=== PATIENT | male | born 1960 | race Caucasian/White ===

== ENCOUNTER 2024-03-17 21:04 | Emergency (ER) | payer OTHER, SELFPAY ==
[2024-03-17] VITALS (8 sets, daily range): BP systolic 130–171; BP diastolic 81–95; PULSE 76–81; RESP 18; TEMP 36.9; O2SAT 98–100
--- NOTE | ~2024-03-17 | CT_ITS ---
History: Fall from a standing position PROCEDURE: CT orbits without contrast. COMPARISON: None TECHNIQUE: Axial imaging of the bilateral orbits were performed without IV contrast. Sagittal and coronal reform ations obtained. DLP: 191 mGy-cm FINDINGS: Hyperattenuating (likely) debris within the soft tissues overlying the orbital and frontal surface of the zygomatic bone. Hyperattenuating foci also identified within the anterior portion of the medial rectus muscle. Additional hyperattenuating foci within the soft tissues overlying the glabella. Minimally displaced right nasal bone fracture. Significant soft tissue swelling along the inferior orbital rim as well as the superior orbital rim. Impression: Soft tissue debris, as detailed above. Minimally displaced right nasal bone fracture. Significant soft tissue swelling along the superior and inferior orbital rim, as detected clinically Reviewed, dictated and finalized at location A. UCHER Impression: Soft tissue debris, as detailed above. Minimally displaced right nasal bone fracture. Significant soft tissue swelling along the superior and inferior orbital rim, a s detected clinically
--- NOTE | ~2024-03-17 | XR_ITS ---
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 Cortical irregularity along the inferior margin of the glenoid fossa along with irregularity of the i nferior margin of the right humeral head. Diffuse bony demineralization is present rendering the dete ction of a nondisplaced fracture limited. IMPRESSION: No acute displaced fracture or anterior dislocation. Cortical irregularity within the glenoid fossa as well as the inferior medial humeral head, for which a nondisplaced fracture is suspected. Reviewed, dictated and finalized at location A. BATH MIXER IMPRESSION: No acute displaced fracture or anterior dislocation. Cortical irregularity within the glenoid fossa as well as the inferior medial h umeral head, for which a nondisplaced fracture is suspected.
--- NOTE | ~2024-03-17 | CT_ITS ---
History: Fall from a standing position PROCEDURE: CT head without contrast. COMPARISON: None TECHNIQUE: Axial imaging of the head performed from the skull base to the vertex without IV contrast. Sagittal a nd coronal reformations obtained. DLP: 681 mGy-cm FINDINGS: The ventricles are normal in size, shape and position for patient of this age. Bilateral basal ganglia calcifications are present. There is no mass, mass effect or midline shift. There is no abnormal extra-axial fluid collection or intracranial hemorrhage. Visualized paranasal sinuses are clear. The mastoid air cells are well aerated. No acute displaced fractures within the overlying cranium. Scalp hematoma along the left supraorbital rim with soft tissue defect along the infraorbital rim. Impression: No acute intracranial hemorrhage or suspicious mass effect. Reviewed, dictated and finalized at location A. GER FASHION Impression: No acute intracranial hemorrhage or suspicious mass effect.
--- NOTE | ~2024-03-17 | XR_ITS ---
HISTORY: fall; rib pain w/ ecchymosis COMPARISON: None TECHNIQUE: 3 views of the right ribs were performed along with a frontal view of the chest FINDINGS: No acute displaced fracture is appreciated. The adjacent right lung is unremarkable. Bone mineralization is age-appropriate. The cardiomediastinal silhouette is unremarkable. The visualized lung bunn are clear. IMPRESSION: No acute displaced right rib fracture, as detailed above Reviewed, dictated and finalized at location A. S REPRESENTATIVE [employer]ATS
--- NOTE | 2024-03-17 21:09 | ED.FALL ---
HPI - Fall General Chief Complaint: Fall Stated Complaint: GLF; RT SHOULDER & RIB PAIN Time Seen by Provider: 03/17/24 21:08 Source: patient, family (Sister) and EMS Mode of arrival: EMS Limitations: no limitations History of Present Illness HPI Narrative: Patient presents from home where he lives with his sister after a ground level fall in the bathroom. He was seated on the edge of the tub and believes he lost his balance and fell. No loss of consciousness. He is not on anticoagulation. His last tetanus shot was approximately 8 years ago by report. He struck his face/head on a cabinet given that the door was broken off. 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 He states he has broken dentition but nothing acute. He is having a right shoulder pain and right rib pain but denies any shortness of breath. Prior to arrival he had already taken his prescribed medications which were gabapentin at 8:15 p.m., Tylenol 650 mg, and Flexeril 5 mg. Related Data Home Medications Medication Instructions Recorded Confirmed celecoxib 200 mg capsule (Celebrex) 200 mg PO DAILY 03/17/24 03/17/24 cyclobenzaprine 5 mg tablet 5 mg PO TID PRN Cervical Ripening 03/17/24 03/17/24 gabapentin 100 mg tablet 100 mg PO DAILY 03/17/24 03/17/24 Allergies Allergy/AdvReac Type Severity Reaction Status Date / Time codeine Allergy Severe CHEST Verified 03/17/24 21:15 PAIN/ NAUSEA PMFSH Past Medical History Medical History (Updated 03/18/24 @ 08:05 by Delores Hill MD) Cervical stenosis of spine Glaucoma Uses walker Social History Social History Living arrangements: with family Additional living arrangements comments: With sister Exam Narrative: GENERAL: well-nourished, and in no acute distress. HEAD: L periorbital swelling/edema as well as ecchymosis particularly along the inferior orbit. EYES: Non injected, non icteric. Extraocular movements intact horizontally and vertically without entrapment. PERRL 3mm bilaterally. ENT: Nares clear, no rhinorrhea or epistaxis. No septal hematoma. NECK: Supple. CHEST: Speaking in full sentences. No respiratory distress. Lungs clear to auscultation bilaterally. No palpable subcutaneous emphysema or bony crepitus. Patient denies TTP along R ribs although he does grimace. Ecchymosis along R chest. HEART: Regular rate and rhythm. . ABDOMEN: Soft, nondistended. SKIN: Warm, dry. Patient does have a 2 cm laceration at the skin underlying his left eyebrow. 1 cm of this is very superficial with the other 1 cm slightly deeper. Scattered abrasions along the right elbow. Skin tear left forearm. NEURO: No focal deficits. Alert and oriented x3. PSYCH: Normal mood and affect. Course Vital Signs Vital signs: Vital Signs Temperature 98.5 F 03/17/24 21:05 Pulse Rate 81 03/17/24 21:05 Respiratory Rate 18 03/17/24 21:05 Blood Pressure 171/81 H 03/17/24 21:05 Pulse Oximetry 100 03/17/24 21:05 Oxygen Delivery Room Air 03/17/24 21:05 Temperature 98.2 F 03/18/24 02:18 Pulse Rate 78 03/18/24 02:18 Respiratory Rate 15 03/18/24 02:18 Blood Pressure 130/92 H 03/18/24 02:18 Pulse Oximetry 100 03/18/24 02:18 Oxygen Delivery Room Air 03/17/24 21:05 Procedures Laceration Laceration 1: Date: 03/17/24 Site: face Side (If applicable): left Size (cm): 2 Description: linear Depth: simple, single layer Pre-repair: wound explored and irrigated extensively ====== Skin Level ====== Skin layer closed with: steri strips Number of sutures: 3 ====== Subcutaneous Layer ====== ====== Muscle Layer ====== ====== Tendon Layer ====== Dressincm slightly deeper while 1cm very superficial. Edges of the inferior aspect are very/paper thin. MDM - Fall MDM Narrative Medical decision making narrative: Patient presents after a ground level fall while seated on the edge of the bathtub and losing his balance. He does not endorse loss of consciousness the this does not seem like syncope. In the emergency department he is afebrile with vital signs notable for hypertension. Notably not tachypneic, tachycardic, or hypoxic. Patient's last tetanus shot was 8 years ago. Given that the wound does not appear grossly contaminated, will defer readministering. Patient is under the care of a neurosurgeon through [facility] for cervical stenosis for which she to markers to surgical intervention in early April. Family is requesting a disc images obtained a to take with them to upcoming appointment. Patient's pain well controlled after 1st dose of narcotic medication. Imaging with possible proximal humeral head fracture though subtle. Will provide sling the patient is advised to continue to perform range of motion exercises and follow-up with orthopedic outpatient. He has nasal bone fracture. Discussed nasal precautions and prescriptions for nasal saline spray and Augmentin. First dose given in the emergency department. Provided referral/contact information for our Otolaryngology follow-up though patient's sister did state she may try to find referrals for both of these specialists within the [facility] system given that he receives all of his other care through them. Discharged in stable condition. All questions answered. Differential Diagnosis Differential diagnosis: Likely dislocation of shoulder region (Or fracture) and other (Rib fracture/contusion; consider pneumothorax; intracranial hemorrhage; orbital fracture; laceration; ecchymosis) Lab Data Attestation: I reviewed the patient's lab results. Lab results narrative: Mild normocytic anemia and thrombocytopenia with no prior for comparison Hyperglycemia without anion gap or acidosis Hyperbilirubinemia 03/17/24 22:17 03/17/24 22:17 Labs: Lab Results 03/17/24 Range/Units 22:17 WBC 9.1 (4.5-10.0) K/mm3 RBC 4.17 L (4.6-6.20) M/mm3 Hgb 13.3 L (14.0-18.0) g/dL Hct 37.9 L (42.0-52.0) % MCV 90.9 (80-100) fl MCH 31.9 (26-34) pg MCHC 35.1 (32-36) g/dl RDW 14.8 H (11.5-14.5) % Plt Count 147 L (150-375) k/mm3 MPV 10.5 H (7.4-10.4) fl Immature Gran % (Auto) 0.3 (0-0.5) % Neut % (Auto) 74.8 H (45.5-73.1) % Lymph % (Auto) 14.9 L (18.3-44.2) % Clinch % (Auto) 8.6 H (2.6-8.5) % Eos % (Auto) 1.0 (0-4.4) % Baso % (Auto) 0.4 (0.2-1.2) % Lymph # (Auto) 1.35 (0.9-3.2) K/mm3 Clinch # (Auto) 0.8 H (0.1-0.6) K/mm3 Eos # (Auto) 0.1 (0-0.3) K/mm3 Baso # (Auto) 0.0 (0.0-0.1) K/mm3 Abs Immat Gran (auto) 0.03 (0.00-0.031) K/mm3 Absolute Neuts (auto) 6.8 H (1.3-6.7) K/mm3 Absolute Nucleated RBC 0.000 (0.0-0.012) K/mm3 Nucleated RBC % 0.0 (0.0-0.2) % PT 14.6 (11.1-14.7) Seconds INR 1.1 APTT 25.1 (22.3-36.8) Seconds Sodium 137 (137-145) mmol/L Potassium 4.5 (3.4-5.0) mmol/L Chloride 102 (98-107) mmol/L Carbon Dioxide 29 (22-30) mmol/L Anion Gap 6 (4-12) mmol/L BUN 17 (9-20) mg/dL Creatinine 0.80 (0.7-1.3) mg/dL Estim Creat Clear Calc 84 ml/min Estimated GFR > 60 (59 - ) Glucose 145 H (65-110) mg/dL Calcium 8.9 (8.4-10.2) mg/dL Total Bilirubin 1.7 H (0.2-1.3) mg/dL AST 22 (17-59) U/L ALT 18 (6-50) U/L Alkaline Phosphatase 115 (38-126) U/L Total Protein 7.0 (6.3-8.2) g/dL Albumin 4.0 (3.5-5.1) g/dL Lipase 224 (23-300) U/L Imaging Data Radiologist's impression: Impressions Head CT 03/17/24 23:53 Impression: No acute intracranial hemorrhage or suspicious mass effect. Ribs w/Chest X-Ray 03/17/24 23:57 IMPRESSION: No acute displaced right rib fracture, as detailed above Shoulder X-Ray 03/18/24 00:04 IMPRESSION: No acute displaced fracture or anterior dislocation. Cortical irregularity within the glenoid fossa as well as the inferior medial humeral head, for which a nondisplaced fracture is suspected. Orbit CT 03/18/24 00:07 Impression: Soft tissue debris, as detailed above. Minimally displaced right nasal bone fracture. Significant soft tissue swelling along the superior and inferior orbital rim, as detected clinically Discharge Plan Discharge Clinical Impression: Normocytic anemia, Thrombocytopenia, Hyperglycemia, Hyperbilirubinemia, Traumatic periorbital ecchymosis of left eye Fall Qualifiers: Encounter type: initial encounter Qualified Code(s): W19.XXXA - Unspecified fall, initial encounter Laceration of eyebrow Qualifiers: Encounter type: initial encounter Laterality: left Qualified Code(s): S01.112A - Laceration without foreign body of left eyelid and periocular area, initial encounter Nondisplaced fracture of right humerus Qualifiers: Encounter type: initial encounter Humerus Location: proximal Fracture type: closed Fracture of nasal bone Qualifiers: Encounter type: initial encounter Patient Disposition: Home, Self-Care Condition: Stable Instructions: Antibiotic Form, Nasal Fracture (ED), How to Use a Sling (ED), Fall Prevention (ED), Steristrips (ED), Facial Laceration (ED), Ecchymosis (ED), Proximal Humerus Fracture (ED) Additional Instructions: You are being provided a disc with the images you can take to any upcoming appointment with your neurosurgeon at [facility] if it is needed. As we discussed, the swelling in your eye may get a bit worse before it gets better. You can continue to apply ice to reduce the swelling. It is safe to take 4000 mg per day of acetaminophen/Tylenol. For the possible fracture at the top of the humerus, keep the arm in a sling when at rest but continue to use this arm so it doesn't become more stiff. Can follow up with the orthopedic surgeon listed below or get an alternative referral for an orthopedic surgeon through your primary care physician ([facility] or otherwise). For the nasal bone fracture practice nasal precautions (okay to inhale including the saline prescribed) but avoid blowing your nose. Also take the entire course of antibiotics. You can follow-up with the ear nose and throat (ENT/sports fitness and wellness director) listed below or get an alternative referral for 1 through your primary care physician ([facility] or otherwise). The steristrips will flake off as the skin heals for your laceration at your eyebrow. Return to the ED with any new or worsening symptoms Prescriptions: New acetaminophen 500 mg capsule 1,000 mg PO Q6H PRN (Reason: pain) Qty: 30 0RF amoxicillin-pot clavulanate 875-125 mg tablet 1 tablet PO Q12H 6 Days Qty: 12 0RF Saline Mist 0.65 % aerosol,spray 2 spray intranasal QID PRN (Reason: nasal congestion) Qty: 44 0RF No Action celecoxib [Celebrex] 200 mg Capsule 200 mg PO DAILY cyclobenzaprine [Flexeril] 5 mg Tablet 5 mg PO TID PRN (Reason: Cervical Ripening) gabapentin 100 mg Tablet 100 mg PO DAILY Follow-up/Referrals: Ayan Doshi MD [Physician] - (orthopedics) Henri Parkinson MD [Physician] - (ear, nose, throat) PHYSICIAN,REEL MAN [Primary Care Provider] - Stand Alone Forms: Work/School Release IP Time of Disposition: 01:06
[2024-03-17] MEDS: HYDROcodone/acetaminophen (*CRX) 5-325 MG TABLET 1 TAB PO (21:31)
[2024-03-17 22:23] LABS: Basophils Percent Auto 0.4 % (0.2-1.2); Eosinophils Absolute Auto 0.1 K/mm3 (0-0.3); Hematocrit 37.9 % (42.0-52.0); Hemoglobin 13.3 g/dL (14.0-18.0); Immature Granulocyte Absolute 0.03 K/mm3 (0.00-0.031); Immature Granulocyte Percent A 0.3 % (0-0.5); Lymphocytes Absolute Auto 1.35 K/mm3 (0.9-3.2); Lymphocytes Percent Auto 14.9 % (18.3-44.2); Mean Corpuscular HGB Conc 35.1 g/dl (32-36); Mean Corpuscular Hemoglobin 31.9 pg (26-34); Mean Corpuscular Volume 90.9 fl (80-100); Mean Platelet Volume 10.5 fl (7.4-10.4); Monocytes Absolute Auto 0.8 K/mm3 (0.1-0.6); Monocytes Percent Auto 8.6 % (2.6-8.5); Neutrophils Absolute Auto 6.8 K/mm3 (1.3-6.7); Neutrophils Percent Auto 74.8 % (45.5-73.1); Platelet Count Result 147 k/mm3 (150-375); Red Blood Count 4.17 M/mm3 (4.6-6.20); Red Cell Distribution Width 14.8 % (11.5-14.5); White Blood Count 9.1 K/mm3 (4.5-10.0)
[2024-03-17 22:33] LABS: Alanine Aminotransferase 18 U/L (6-50); Alkaline Phosphatase 115 U/L (38-126); Anion Gap 6 mmol/L (4-12); Aspartate Amino Transferase 22 U/L (17-59); Bilirubin,Total 1.7 mg/dL (0.2-1.3); Blood Urea Nitrogen 17 mg/dL (9-20); Calcium 8.9 mg/dL (8.4-10.2); Carbon Dioxide 29 mmol/L (22-30); Chloride 102 mmol/L (98-107); Estimated CRCL calculation 84 ml/min; Estimated Glomerular Filt Rate > 60; Glucose 145 mg/dL (65-110); Lipase 224 U/L (23-300); Potassium 4.5 mmol/L (3.4-5.0); Sodium 137 mmol/L (137-145)
[2024-03-17 22:45] LABS: INR 1.1; Partial Thromboplastin Time 25.1 Seconds (22.3-36.8); Prothrombin Time 14.6 Seconds (11.1-14.7)
[2024-03-18] MEDS: SALINE 0.65% NAS SOLN 44 ML BTL 1 SPRAY NASAL (01:15)
[2024-03-18] MEDS: AMOXICILLIN/CLAVULANATE K 875-125 MG TAB 1 TABLET PO (01:16)
[2024-03-18 02:17] VITALS: BP 130/92; PULSE 78; RESP 14; TEMP 36.8; O2SAT 100
[2024-03-18 02:18] VITALS: BP 130/92; PULSE 78; RESP 15; TEMP 36.8; O2SAT 100
== END 2024-03-18 02:24 | disposition home or self-care (01) ==
PROVIDERS: Emergency Provider Student in an Organized Health Care Education/Training Program
DX: S01.112A Laceration without foreign body of left eyelid and periocular area, initial encounter (principal); W18.30XA Fall on same level, unspecified, initial encounter; D64.9 Anemia, unspecified; D69.6 Thrombocytopenia, unspecified; R73.9 Hyperglycemia, unspecified; E80.6 Other disorders of bilirubin metabolism; S05.12XA Contusion of eyeball and orbital tissues, left eye, initial encounter; H40.9 Unspecified glaucoma
CPT/HCPCS: 36415; 70450; 70480; 71101; 73030; 80053; 83690; 85025; 85610; 85730; 99284; A4565; A9270

== ENCOUNTER 2024-08-03 16:15 | Observation (INO) | payer OTHER, SELFPAY ==
--- NOTE | ~2024-08-03 | XR_ITS ---
EXAM: XR shoulder RT min 2V DATE: 08/03/2024 18:09 HISTORY: fall, injury prox humerous . COMPARISON: 03/17/2024. FINDINGS: Decreased mineralization. No fracture or dislocation. No lytic or blastic lesion. Moderate degenerative change at the AC joint and glenohumeral joint. No erosion or periosteal change. Soft ti ssues within normal limits. IMPRESSION: No acute osseous finding in the right shoulder. Reviewed, dictated and finalized at location K.
--- NOTE | ~2024-08-03 | XR_ITS ---
EXAMINATION: XR chest 2V Exam Date/Time: 08/03/2024 17:55 CDT HISTORY: fever, fall Comparison: None. RESULT: Lines, tubes, and devices: Left-sided laminectomy hardware over the cervical spine. Cholecystectomy clips. Lungs and pleura: Clear. Cardiomediastinal silhouette: Unremarkable. Other: No acute osseous or upper abdominal finding. IMPRESSION: No acute cardiopulmonary process. Reviewed, dictated and finalized at location K.
--- NOTE | ~2024-08-03 | CT_ITS ---
EXAMINATION: CT cervical spine wo con DATE: 08/03/2024 17:54 INDICATION: fall, laminoplasty in dec TECHNIQUE: Computed tomography (CT) of the cervical spine was performed without intravenous contrast. Automated exposure control and iterative reconstruction technique were employed. The dose-length pro duct was 534.94 mGy-cm. COMPARISON: None. FINDINGS: Vertebral Body Alignment: Intact. Craniocervical and atlantoaxial alignment: Moderate degenerative change with pannus. Alignment intact . Osseous structures/fracture: No evidence of a lytic or blastic process in the visualized spine. No e vidence of acute fracture. Bilateral C3 laminectomy defects. Hemilaminectomy defects on the left with associated hardware at C4-C6. Chronic appearing right-sided lamina fractures at C4 and C6. Left C3-4 facet fusion Cervical soft tissues: The paraspinal soft tissues planes are maintained. Degenerative changes: Multilevel degenerative disc disease and facet arthropathy. Severe right neural foraminal narrowing at C4-5 secondary to degenerative changes. No severe central canal narrowing. IMPRESSION: No acute fracture or traumatic malalignment in the cervical spine. Reviewed, dictated and finalized at location K.
--- NOTE | ~2024-08-03 | CT_ITS ---
EXAMINATION: CT brain wo con DATE: 08/03/2024 17:54 INDICATION: fall . TECHNIQUE: Computed tomography (CT) of the head was performed without intravenous contrast. The mA wa s adjusted according to patient size. Iterative reconstruction technique was employed. The dose-lengt h product was 681.00 mGy-cm. COMPARISON: 03/17/2024. FINDINGS: No acute intracranial hemorrhage or extra-axial fluid collection. No hydrocephalus, mass, or herniation. No acute ischemic infarct. Unremarkable dural venous sinus attenuation. No acute osseous abnormality. The aerated spaces are clear. Mild chronic white matter change. Bilateral basal ganglia calcification. Intracranial arterial calcif ication. IMPRESSION: No acute intracranial process. Reviewed, dictated and finalized at location K.
--- OUTSIDE RECORDS SUMMARY | 2024-08-03 16:19 | XMS_ITS | Clinical Summary ---
Author Organization [facility], formerly [facility] Address [address] [place] [address] Care Team Providers Care Rpg Programmer Analyst Name Role Phone Chani Beltran MD PhD Primary Care Provi halle Heidi Fay MD Unavailable [phone] Allergies Active Allergy Reactions Criticality Noted Date Comments Codeine Nausea & Vomiting Low 02/05/2024 Baclofen Mental status changes Medium 06/02/2024 nightmares Medications latanoprost (XALATAN) 0.005 % ophthalmic solution Administer 1 drop into both eyes nightly 2.5 mL 11 4 Active dorzolamide-shade oloL (COSOPT) 22.3-6.8 mg/mL ophthalmic solution Administer 1 drop into both eyes 2 (two) times a day 10 mL 11 4 Active ketoconazole (NIZORAL) 2 % shampooIndicati ons:Seborrheic Dermatitis Apply topically daily Apply to damp skin, lather, leave on 5 minutes, and rinse 120 mL 4 Active famotidine (PEPCID) 20 mg tabletIndicatio ns:non-bleeding gastric disorder Take 1 tablet (20 mg total) by mouth 2 (two) times a day 4 04/25/20 25 Active lidocaine (LIDODERM) 5 % Place 2 patches on the skin daily Remove & discard patch within 12 hours or as directed by . 4 Active acetaminophen 500 mg capsule Take 2 capsules (1,000 mg total) by mouth every 6 (six) hours 4 Active cyclobenzaprine (FLEXERIL) 10 mg tabletIndicatio ns:Muscle Spasm Take 1 tablet (10 mg total) by mouth 2 (two) times a day as needed for muscle spasms 60 tablet 5 Active hydrocortisone 2.5 % creamIndication s:Skin Inflammation,sk in rash Apply topically 2 (two) times a day twice daily to entire face and irby area BID 30 g 1 5 Active methocarbamoL (ROBAXIN) 500 mg tablet Take 1 tablet (500 mg total) by mouth 3 (three) times a day 90 tablet 5 Active pregabalin (LYRICA) 75 mg capsule Take 1 capsule (75 mg total) by mouth 2 (two) times a day 60 capsule 5 5 01/18/20 25 Active Active Problems Problem Noted Date Diagnosed Date Osteoarthritis of cervical s pine, unspecified spinal osteoarthritis complication status 04/21/2024 Discharge planning issues 04/10/2024 Assessment & Plan (04/10/2024 2:29 PM CANCER PROGRAM CONSULTANT): Does not wish to return to current ECF. CC working with sister to find new ECF. Have decided to return to previous ECF- everyone was really nice just overworked Central cord syndrome, subsequent encounter 07/2023 Assessment & Plan (04/11/2024 9:53 AM CANCER PROGRAM CONSULTANT): P/w worsening falls, numbness in all extremities (especially RLE), ongoing bowel/bladder incontinence, neck pain, and leg cramps. Known hx of cervical myelopathy, cervical & lumbar spinal stenosis. CT head / C spine / T spine without contrast this admission w/ NAIA, no evidence of acute C or T spine fracture. This appears to be worsening of his chronic symptoms, more pronounced in the past few days. - NSGY consulted in ED: no acute surgical interventions at this time - fall precautions - PT/OT evals - will need new facility placement; his sister was dissatisfied w/ care at his previous facility - pain control: cont celecoxib daily, increase cyclobenzaprine 5 BID PRN --> 10 BID PRN, cont APAP PRN, increase gabapentin from 100 qHS to 100 TID, lido patches to back - patient states that he wishes to avoid opioids - holding ASA /celebrex per NSGY recs- would like to be off 10 days before planned surgery 04/21. IPAP 04/10 for pre-op evaluation done. -04/10 walked with WW with PT to door and then up in chair Facial rash 04/08/2024 Assessment & Plan (04/10/2024 10:01 AM CANCER PROGRAM CONSULTANT): His sister reports that he has had a worsening scaly, erythematous rash on his face for the past few days; she adds that they have a family history of both eczema and psoriasis. Patient denies any pain or pruritus associated with this rash. Favor severe seborrheic dermatitis. Asymptomatic. -inpatient derm c/s (he was referred by previous PCP, but doesn't have an IOV until 10/2024) -Derm consulted 04/10 and agreed with dx of severe seborrheic dermatitis- started Ketoconazole 2% shampoo as face wash daily, allow lather to sit on damp skin for 5 minutes before rinsing well and Hydrocortisone 2.5% cream twice daily to entire face and irby area BID Osteoarthritis of cervical spine 03/17/2024 Onychomycosis 03/07/2024 Overview (03/07/2024): Sister noticed toe nail fungus yesterday. Not sure how long has been going on for. Given the patient does not have insurance that is accepted here, labs were deferred, so oral antifungals were avoided at this time. Assessment & Plan (03/07/2024 4:56 PM CDT): - efinaconazole 2% with applicator ordered (for 48 weeks) Close exposure to COVID-19 virus 03/07/2024 Overview (03/07/2024): Patient exposed to COVID during his hospital stay. Denies fevers, sore throat, fatigue. Endorses mild cough at night - encouraged patient to retest for COVID at home Primary open angle glaucoma (POAG) of both eyes, severe stage 03/04/2024 Assessment & Plan (06/05/2024 3:40 PM CANCER PROGRAM CONSULTANT): Tmax 20/23, +FHx (sister, father), angles open on gonio but few PAS OD. Goal is likely low-to-mid teens. IOP at goal on 3 classes. Return 4 months for repeat HVF 24-2 OD (first time HVF and poor testing), GVF OS (high FP, trail GVF OS) Assessment & Plan (03/04/2024 12:32 PM CDT): Educated patient and his sister on condition, guarded prognosis OS. Patient is aware that glaucoma is a progressive condition that can result in total blindness. (+)Fhx- father and sister. Will start cosopt bid OU and latanoprost qhs OU and have patient return in 1 month for HVF 24-2- size 3 OD, size 5 OS, CCT, and gonio. Will schedule for glaucoma to discuss potential need for surgical intervention at subsequent visit. Cataract, nuclear sclerotic, both eyes Assessment & Plan (03/04/2024 12:33 PM CDT): NVS, follow. Cervical spine disease 02/21/2024 Overview (03/07/2024): Multiple falls recently. Ligamentous injury from C2-4 as well as osteophytic complexes causing canal stenosis within the cervical spine, most severe at C3- 4.He would like C3-C6 posterior cervical decompression and fusion in the future and has an appointment with NSFRAN in early March Assessment & Plan (03/07/2024 5:02 PM CDT): - reordered gabapentin - provided resources through department for aging for help at home, patients sister will call to set up - filled out handicap sticker request - home OT/PT - follow closely with MATHEW (appt Nov) - advised patient to return to ER if symptoms worsen Smoking 02/04/2024 Assessment & Plan (04/08/2024 10:11 PM CANCER PROGRAM CONSULTANT): Reports quitting tobacco. - congratulated patient on quitting and encouraged continued cessation Assessment & Plan (02/04/2024 2:56 PM CDT): Ordered CT lung cancer screening Disc disease, degenerative, cervical 02/04/2024 Assessment & Plan (02/04/2024 2:54 PM CDT): Neurologic symptoms stable, neck pain slowly improving per patient. Has appt with neurosurgery tmrw Dysphagia 02/04/2024 Assessment & Plan (02/04/2024 2:54 PM CDT): Dysphagia to both solids/liquids with weight loss. With concomitant hoarseness/voice changes. Has significant smoking history. Ordered EGD as well as referral to ENT for scope exam for further workup, patient amenable. Erythema 02/04/2024 Assessment & Plan (02/04/2024 2:55 PM CDT): Has circular spots that seem to be insect bites, however pt adamantly denies that he is being bit (currently lives in [facility]). Is worried he has kaycee but exam does not look like kaycee. Wants to 'get to the bottom of this' thus referred to dermatology Personal history of nicotine dependence 02/04/20 24 History of total left hip arthroplasty Assessment & Plan (02/04/2024 2:54 PM CDT): Ordered x rays Glaucoma of left eye 12/14/2023 Overview (12/14/2023): History of glaucoma per chart review. Patient endorses vision loss in left eye. Does not follow with ophthalmology. 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 - continue Cosopt and Xalatan OU - outpatient f/u with ophthalmology Assessment & Plan (12/14/2023 2:44 PM CDT): - placed referral for opthalmology History of homeless 12/14/2023 Overview (12/14/2023): Patient endorses struggling with homelessness. Currently lives with girlfriend in a motel. Would like to be connected with resources for stable housing Assessment & Plan (12/14/2023 2:49 PM CDT): - referral and messaged placed to social work. Not in office during clinic visit Wheezing 12/14/2023 Overview (12/14/2023): Right sided expiratory wheezes noted on exam today. Smoked 2ppd since teen years. Quit 1 year ago and now has one cigarette last about 4 days. Endorses chest congestion for last two weeks. Denies SOB, orthopnea, cough, or fevers. Concern for COPD vs viral PNA Assessment & Plan (12/20/2023 4:08 PM CDT): - ordered PFTs Urinary frequency 12/14/2023 Overview (12/14/2023): Patient reports getting up 5-6 times at night to urinate. No dribbling or difficulties starting or maintaining a stream. Family history of prostate cancer in his father. Assessment & Plan (12/14/2023 2:45 PM CDT): - PSA ordered Neck pain 12/14/2023 Overview (12/14/2023): Fell in July where he slipped on a wet floor and was told he tore several ligaments in his neck (records not found in chart). He endorses having 10 falls in the last two years with his last fall being in October. He has never seen PT and has been wearing a C collar for several hours a day since July as he says it helps with his symptoms of neck fatigue that occur later in the day. Recently on 11/27/23 he presented to the ED for new onset speech and swallowing difficulty that mostly occurred later in the day when he felt fatigued. Negative workup for stroke and was told to follow up with neurosurgery. His sister (also present at the visit) endorsed one episode where he needed the Heimlich maneuver to dislodge food from his throat. He states his neck pain is minimal, but his neck becomes very fatigued later in the day and falls forward to his chest. He states that since this episode he has lost a lot of weight and has been feeling less motivated as he is unable to exercise or work or do the hobbies he likes such as detailing cars and painting. He does not endorse any HI/SI, sleep disturbances, changes in energy, or feelings of guilt. He can typically walk around home slowly and uses a wheelchair for long distances like going from the hospital garage to the clinic. Imaging from 11/26 indicates osteoarthritis of the neck. Weakness and speech and swallowing issues likely 2/2 to prolonged C collar usage. Assessment & Plan (12/14/2023 3:39 PM CDT): - Patient has been told by multiple providers to schedule an appointment with neurosurgery since his fall. Encouraged patient to do so today after this visit. - flexeril 5 mg ordered - Physical therapy referral placed - continue to follow with mood symptoms Arthritis 12/14/2023 Overview (12/14/2023): Arthritis of the hands, chronic. Patient has taken daily ibuprofen for the pain. Would lke to try celebrex as it as helped in the past. Assessment & Plan (12/14/2023 3:40 PM CDT): - ordered celebrex Healthcare maintenance 12/13/2023 Overview (02/04/2024): General - A1c (for pts c BP >135/80): Lab Results Component Value Date HGBA1C 5.7 (H) 09/19/2016 Lab Results Component Value Date HGBA1C 5.7 (H) 09/19/2016 - Lipids (men >35): No results found for: LDLCALC - AAA (men 65-75 c smoking hx): NA Cancer - Colonoscopy (age 45-75): One completed in 40s that was wnl. Declined colonoscopy, ordered FIT test (provided kit in clinic) - Lung (50-80 c >20 pk-yr hx, and smoking in past 15yrs): ordered 01/2024 - Prostate (55-69, shared decisionmaking): prostate cancer in father, urinary frequency at night. PSA today Infectious Disease - HIV (13-64yo): negative in past, patient reported - HBV: negative 09/25/16 - HCV: positive Ab and RNA in 09/2016, treated, but no repeat studies done, ordered today - Gonorrhea/Chlamydia (MSM, women <24 or >25 w/ increased risk): NA - Syphilis (MSM annually, or men/women at increased risk): NA Immunizations - Influenza (annually): discuss at next visit - Td/Tdap (q10 years): discuss at next visit, patient unsure - PCV20 (>65, chronic conditions): NA - Shingles, 2 doses 2-6mo apart (age >50, chronic conditions): discussed with patient to get at [facility] - HPV, 2 doses 6-12mo apart (<26, can discuss up to 45): NA - HAV (MSM or chronic liver disease): NA - HBV (DM, HIV, MSM, liver dz, CKD, healthcare workers): NA - Meningococcus (asplenia, college students): NA - HiB (asplenia, HSCT): NA - SARS-CoV-2: none, patient decline Encounters Date Type Department Care Team Description 07/21/[address] [facility] Neurosurgery [address] [place] [address] Office [address] [place] [address] Heidi Fay MD Osteoarthritis of cervical spine, unspecified spinal osteoarthritis complication status (Primary Dx); History of spinal cord injury 07/17/2024 2:45 PM CDT Office Visit [facility] Neurosurgery [address] [place] [address] Medical Office Building [address] [place] [phone] Heidi Fay MD Osteoarthritis of cervical spine, unspecified spinal osteoarthritis complication status 07/17/2024 2:15 PM CDT - 07/17/2024 11:59 PM CDT Hospital Encounter [id number] [address] [place] [address] [address] [place] [phone] Osteoarthritis of cervical spine, unspecified spinal osteoarthritis complication status Discharge Disposition: Discharge to home or self care 07/10/[address] [facility] Neurosurgery [address] [place] [address] Medical Office Building [address] [place] [address] Heidi Fay MD Osteoarthritis of cervical spine, unspecified spinal osteoarthritis complication status (Primary Dx) 07/09/2024 Telephone [facility] Home Care Services [address] [place] [address] Cece Boyce RN 07/09/[address] [facility] Neurosurgery [address] [facility] Office [facility] [address] [place] [phone] Heidi Fay MD Osteoarthritis of cervical spine, unspecified spinal osteoarthritis complication status (Primary Dx) 06/05/2024 2:30 PM CANCER PROGRAM CONSULTANT Office Visit [facility] Ophthalmology [address] [place] [address] [address] [place] [id number] Primary open angle glaucoma (POAG) of both eyes, severe stage (Primary Dx) 06/02/2024 2:45 PM CANCER PROGRAM CONSULTANT Office Visit [facility] Neurosurgery [facility] Office [facility] [address] [place] [phone] Heiid Fay MD Osteoarthritis of cervical spine, unspecified spinal osteoarthritis complication status 06/02/2024 2:27 PM CANCER PROGRAM CONSULTANT - 06/02/2024 11:59 PM CANCER PROGRAM CONSULTANT Hospital Encounter [facility] [address] [facility] [address] [place] [phone] Osteoarthritis of cervical spine, unspecified spinal osteoarthritis complication status Discharge Disposition: Discharge to home or self care 06/02/[address] [facility] Neurosurgery [address] [facility] Office [facility] [address] [place] [phone] Heidi Fay MD Osteoarthritis of cervical spine, unspecified spinal osteoarthritis complication status (Primary Dx) 05/30/[address] [facility] Neurosurgery [address] [place] [address] Office [facility] [address] [place] [phone] Heidi Fay MD Osteoarthritis of cervical spine, unspecified spinal osteoarthritis complication status (Primary Dx) 05/27/2024 Orders Only [facility] Primary [facility] Medicine [facility] [facility] [address] [place] [address] Janette Mas MD Foot callus (Primary Dx) 05/14/2024 Orders Only [facility] [phone] Unknown, Notinfile 05/12/2024 Orders Only [facility] [phone] Unknown, Notinfile 05/09/2024 Orders Only [facility] [phone] Unknown, Notinfile 05/06/2024 Orders Only [facility] [phone] Unknown, Notinfile 05/05/2024 Orders Only [facility] [phone] Unknown, Notinfile from Last 3 Months Immunizations Immunization Administration Dates Next Due COVID-19 mRNA ([employer]) 0.3 m L (30 mcg) vaccine (12 years and up) 03/03/2024 Influenza, Unspecified 03/03/2024 Surgical History Surgery Date Site/Laterality Comments CHOLECYSTECTOMY 05/07/2000 - 05/06/2001 TOTAL HIP ARTHROPLASTY Medical History Medical History Date Comments Infectious viral hepatitis Slipped epiphysis Allergic rhinitis Fracture of nasal bones Dental disease HL (hearing loss) Family History Medical History Relation Name Comments Allergies Father Kash Galvez Diabetes Father Peter Galvez Hearing loss Father Kash Galvez Heart attack Father Peter Galvez Heart disease Father Peter Galvez Heart failure Father Peter Galvez Osteoarthritis Father Peter Galvez Prostate cancer Father Peter Galvez Sleep apnea Father Peter Galvez Snoring Father Peter Galvez Allergies Mother Grattena Galvez Hypertension Mother Grattena Galvez Lung cancer Mother Grattena Galvez Osteoarthritis Mother Grattena Galvez Rashes / Skin problems Mother Grattena Galvez Thyroid disease Mother Grattena Galvez autoimmune arthritis Sister 1 Allergies Sister 2 Layla Tobi Asthma Sister 2 Layla Tobi Autoimmune disease Sister 2 Layla Tobi Diabetes Sister 2 Layla Tobi Osteoarthritis Sister 2 Layla Tobi Rashes / Skin problems Sister 2 Layla Tobi Thyroid disease Sister 2 Layla Tobi Relation Name Status Comments Father Peter Galvez Mother Grattena Galvez Sister 1 Sister 2 Layla Britton Social History Tobacco Use Types Packs/Day Years Used Date Smoking Tobacco: Former Cigarettes 1.9 53.2 S tarted: 1972 Cigars Tobacco Cessation:Counseling Given: No OASIS D0700: Social Isolation Answer Da te Recorded Frequency of experiencing loneliness or isolatio n Never 03/25/2024 OASIS A1250: Transportation Answer Date Recorded Lack of Transportation (Medical) No 03/25/2024 Lack of Transportation (Non-Medical) No 03/25/2024 Patient Unable or Declines to Respond No 03/25/2024 OASIS B1300: Health Literacy Answer Denys e Recorded Frequency of needing help to read materials from doctor or pharmacy Often 03/25/2024 [facility] Utilities Answer Date Recorded In the past 12 months has th e electric, gas, oil, or water company threatened to shut off services in your home? No 04/24/2024 Social Connection and Isolat ion Panel [NHANES] Answer Date Recorded In a typical week, how many times do you talk on the phone with family, friends, or neighbors? More than three times a week 04/24/2024 How often do you get togethe r with friends or relatives? More than three times a week 04/24/2024 How often do you attend chur ch or sikh services? Never 04/24/2024 Do you belong to any clubs o r organizations such as caodaism groups, unions, fraternal or athletic groups, or school groups? No 04/24/2024 How often do you attend meet ings of the clubs or organizations you belong to? Never 04/24/2024 Are you , , di vorced, , never , or living with a partner? 04/24/2024 AUDIT-C Answer Date Recorded Q1: How often do you have a drink containing alc ohol? Monthly or less 02/05/2024 Q2: How many drinks containi ng alcohol do you have on a typical day when you are drinking? 1 or 2 02/05/2024 Q3: How often do you have si x or more drinks on one occasion? Never 02/05/2024 Overall Financial Resource Strain (CARDIA) Answe r Date Recorded How hard is it for you to pa y for the very basics like food, housing, medical care, and heating? Very hard 04/24/2024 PHQ-2 Answer Date Recorded PHQ-2 Total Score (If total score is 3 or more points, staff should administer the PHQ-9) 0 04/24/2024 Hunger Vital Sign Answer Date Recorded Within the past 12 months, y ou worried that your food would run out before you got the money to buy more. Never true 04/24/20 24 Within the past 12 months, t he food you bought just didn't last and you didn't have money to get more. Never true 04/24/2024 PRAPARE - Transportation Answer Date Re corded In the past 12 months, has l ack of transportation kept you from medical appointments or from getting medications? No 04/06 In the past 12 months, has l ack of transportation kept you from meetings, work, or from getting things needed for daily living? No 04/24/2024 PHQ-9 Answer Date Recorded PHQ-9 Total Score 0 04/09/2024 Housing Stability Vital Sign Answer Denys e Recorded In the last 12 months, was t here a time when you were not able to pay the mortgage or rent on time? Yes 04/24/2024 In the past 12 months, how m any times have you moved where you were living? 2 04/24/2024 At any time in the past 12 m [facility], were you homeless or living in a alf (including now)? No 04/24/2024 Personal Safety Answer Date Recorded Have you ever been in or are you currently in a harmful physical or emotional relationship or is someone making you feel afraid or unsafe? Denies 04/21/2024 Sex and Gender Information Value Date Recorded Sex Assigned at Not on file Legal Sex Male 9:06 PM CANCER PROGRAM CONSULTANT Gender Identity Not on file Sexual Orientation Not on file Obstetrics History Last Filed Vital Signs Vital Sign Reading Time Taken Comments Blood Pressure 106/60 04/25/2024 11:26 AM CANCER PROGRAM CONSULTANT Pulse 95 04/25/2024 11:26 AM CANCER PROGRAM CONSULTANT Temperature 37.7 C (99.9 F) 04/25/2024 11:26 AM CANCER PROGRAM CONSULTANT Respiratory Rate 17 04/25/2024 11:26 AM CANCER PROGRAM CONSULTANT Oxygen Saturation 99% 04/25/2024 11:26 AM CANCER PROGRAM CONSULTANT Inhaled Oxygen Concentration - - Weight 83 kg (183 lb) 07/17/2024 3:13 PM CDT Height 177.8 cm (5' 10 ) 07/17/2024 3:13 PM CDT Body Mass Index 26.26 07/17/2024 3:13 PM CDT Plan of Treatment Scheduled Procedures Name Priority Associated Diagnoses Date/Ti me COLONOSCOPY Open Access Healthcare maintenance Health Maintenance Due Date Last Done Comments Colon Cancer Screening-Colonoscopy 1960 Prostate Cancer Screening-PSA 1959 DTaP/Tdap/Td Vaccine (1 - Tdap) 12/11/1970 Hepatitis B Screening 12/11/1977 Regular Well Visit/Exam 18-64 12/11/1977 Zoster Vaccine (1 of 2) 12/11/2009 Lung Cancer Screening 03/12/2025 03/11/2024 Depression Screening 04/08/2025 04/08/2024, 04/08/2024, 03/17/2024 Hepatitis C Screening Completed 12/13/2023 , 09/25/2016 Influenza Vaccine Completed 03/03/2024 Pneumococcal vaccine <65 Aged Out No longer eligible based on patient's age to complete this topic Medical Devices Implanted Type Area Top Dyeing Machine Tender Device Identifier Shelf Expiration Date Model / Serial / Lot [employer] Centerpiece 10mm Multiple Hole Open Door Precut Kickstand Color 853-010 - [id number] Implanted:Qty: 3 on 04/21/2024 by Heidi Fay MD at [facility] N/A: Spine Cervical [employer] 853-010 / / [employer] Spinal Screw Anterior Cervical Odlp Solid 2.0x5mm [id number] - [id number] Implanted:Qty: 5 on 04/21/2024 by Heidi Fay MD at [facility] N/A: Spine Cervical [employer] [id number] / / [employer] Spinal Screw Anterior Cervical Odlp Solid 2.0x7mm [id number] - [id number] Implanted:Qty: 7 on 04/21/2024 by Heidi Fay MD at [facility] N/A: Spine Cervical [employer] [id number] / / Procedures Procedure Name Priority Date/Time Associated Diagnosis Comments XR SPINE CERVICAL 2 OR 3 VIEWS Schedule Routine, Read Routine (OP Routine) 07/17/2024 3:14 PM CDT Osteoarthritis of cervical spine, unspecified spinal osteoarthritis complication status LORENZO VISUAL FIELD - OU - BOTH EYES Routine 06/05/2024 3:39 PM CANCER PROGRAM CONSULTANT Primary open angle glaucoma (POAG) of both eyes, severe stage XR SPINE CERVICAL 2 OR 3 VIEWS Schedule Routine, Read Routine (OP Routine) 06/02/2024 2:39 PM CANCER PROGRAM CONSULTANT Osteoarthritis of cervical spine, unspecified spinal osteoarthritis complication status EGFR Routine 05/14/2024 4:57 AM CANCER PROGRAM CONSULTANT BASIC METABOLIC PANEL Routine 05/14/2024 4:57 AM CANCER PROGRAM CONSULTANT DIFFERENTIAL AUTO Routine 05/14/2024 4:5 7 AM CANCER PROGRAM CONSULTANT CBC WITH AUTO DIFFERENTIAL Routine 05/14/2024 4:57 AM CANCER PROGRAM CONSULTANT EGFR Routine 05/12/2024 4:45 AM CANCER PROGRAM CONSULTANT BASIC METABOLIC PANEL Routine 05/12/2024 4:45 AM CANCER PROGRAM CONSULTANT DIFFERENTIAL AUTO Routine 05/12/2024 4:4 5 AM CANCER PROGRAM CONSULTANT CBC WITH AUTO DIFFERENTIAL Routine 05/12/2024 4:45 AM CANCER PROGRAM CONSULTANT INFLUENZA A/B, RSV, AND COVID-19 PCR STAT 05/09/2024 11:20 AM CANCER PROGRAM CONSULTANT DIFFERENTIAL AUTO Routine 05/06/2024 4:5 7 AM CANCER PROGRAM CONSULTANT CBC WITH AUTO DIFFERENTIAL Routine 05/06/2024 4:57 AM CANCER PROGRAM CONSULTANT EGFR Routine 05/05/2024 5:05 AM CANCER PROGRAM CONSULTANT BASIC METABOLIC PANEL Routine 05/05/2024 5:05 AM CANCER PROGRAM CONSULTANT DIFFERENTIAL AUTO Routine 05/05/2024 5:0 5 AM CANCER PROGRAM CONSULTANT CBC WITH AUTO DIFFERENTIAL Routine 05/05/2024 5:05 AM CANCER PROGRAM CONSULTANT CT LUNG CANCER SCREENING Schedule Routine, Read Routine (OP Routine) 03/11/2024 1:07 PM CANCER PROGRAM CONSULTANT Personal history of nicotine dependence HEPATITIS PANEL, ACUTE Routine 09/25/2016 4:15 PM CDT from Last 3 Months or Most Recently Relevant to Health Maintenance Results * XR Spine Cervical 2 or 3 Views (07/17/2024 3:14 PM CDT) Anatomical Region Laterality Modality Spine N/A Computed Radiogr aphy 07/17/2024 3:20 PM CDT Impressions 07/17/2024 3:20 PM CDT 1. Postsurgical changes of posterior decompression at C3-C6 with left-sided hinged laminoplasties at C4-C6. 2. Mild to moderate multilevel cervical degenerative disc disease, most prominent at the lower cervical spine. Electronically signed by: Levi Hardy MD Narrative 07/17/2024 3:20 PM CDT EXAMINATION: XR SPINE CERVICAL 2 OR 3 VIEWS HISTORY: Cervical spondylosis FINDINGS: Comparison dated 06/02/2024. Postsurgical changes of posterior decompression at C3-C6 with left-sided hinged laminoplasties at C4-C6. No fracture. No prevertebral soft tissue swelling. Moderate degenerative disc disease at C5-C7. Mild degenerative disc disease throughout the remainder of the cervical spine. Vascular calcifications. Procedure Note Levi Hardy MD - 07/17/2024 EXAMINATION: XR SPINE CERVICAL 2 OR 3 VIEWS HISTORY: Cervical spondylosis FINDINGS: Comparison dated 06/02/2024. Postsurgical changes of posterior decompression at C3-C6 with left-sided hinged laminoplasties at C4-C6. No fracture. No prevertebral soft tissue swelling. Moderate degenerative disc disease at C5-C7. Mild degenerative disc disease throughout the remainder of the cervical spine. Vascular calcifications. IMPRESSION: 1. Postsurgical changes of posterior decompression at C3-C6 with left-sided hinged laminoplasties at C4-C6. 2. Mild to moderate multilevel cervical degenerative disc disease, most prominent at the lower cervical spine. Electronically signed by: Levi Hardy MD Heidi Fay MD IMG XR PROCEDURES Final Resul t * Lorenzo Visual Field - OU - Both Eyes (06/05/2024 3:39 PM CANCER PROGRAM CONSULTANT) Pattern Deviation OD 7.57 dB CONTINUUM Mean Deviation OD -9.74 dB CONTINUUM Anatomical Region Laterality Modality Head Visual Field Narrative 06/05/2024 3:39 PM CANCER PROGRAM CONSULTANT Right Eye Fixation was borderline. Cooperation was good. Reliability was good. Foveal threshold was normal. Mean Deviation was -9.74 dB. Pattern Deviation was 7.57 dB. Notes OD: superior and inferior nasal arcuates OS: dense superior altitudinal defect, inferior arcuate Linda Nguyen MD OPH VISUAL FIELD Final Result * XR Spine Cervical 2 or 3 Views (06/02/2024 2:39 PM CANCER PROGRAM CONSULTANT) Anatomical Region Laterality Modality Spine N/A Computed Radiogr aphy 06/02/2024 2:46 PM CANCER PROGRAM CONSULTANT Impressions 06/02/2024 2:46 PM CANCER PROGRAM CONSULTANT 1. Drain removal following C3 laminectomy and C4-C6 laminoplasties. Electronically signed by: Ghassan Benitez M.D. Narrative 06/02/2024 2:46 PM CANCER PROGRAM CONSULTANT EXAMINATION: XR SPINE CERVICAL 2 OR 3 VIEWS HISTORY: Cervical spondylosis FINDINGS: 2 view examination of the cervical spine is compared with a study from 04/22/2024. There is no change in C3 laminectomy with C4-C6 left lamina plasties. The drain has been removed. There is mild to moderate degenerative disc disease throughout the cervical spine. There is no new fracture or listhesis. Instrumentation is intact. Procedure Note Ghassan Benitez MD - 06/02/2024 EXAMINATION: XR SPINE CERVICAL 2 OR 3 VIEWS HISTORY: Cervical spondylosis FINDINGS: 2 view examination of the cervical spine is compared with a study from 04/22/2024. There is no change in C3 laminectomy with C4-C6 left lamina plasties. The drain has been removed. There is mild to moderate degenerative disc disease throughout the cervical spine. There is no new fracture or listhesis. Instrumentation is intact. IMPRESSION: 1. Drain removal following C3 laminectomy and C4-C6 laminoplasties. Electronically signed by: Ghassan Benitez M.D. Heidi Fay MD IMG XR PROCEDURES Final Resul t * eGFR (05/14/2024 4:57 AM CANCER PROGRAM CONSULTANT) eGFR >90 >=60 mL/min/1. 73 m2 [facility] [place] Comment: Interpretive Data Reference Interval Normal >/= 90 mL/min/1.73m2 Mildly decreased* 60 - 89 mL/min/1.73m2 Mildly to moderately decreased 45 - 59 mL/min/1.73m2 Moderately to severely decreased 30 - 44 mL/min/1.73m2 Severely decreased 15 - 29 mL/min/1.73m2 Kidney Failure < 15 mL/min/1.73m2 *Relative to young adult level Estimated glomerular filtration rate is determined by the 2020 CKD-EPI equation recommended by the National Kidney [employer] (A Unifying Approach to GFR Estimation: Recommendations of the NKF-ASK Task Force on Reassessing the Inclusion of Race in Diagnosing Kidney Disease, JASN 2020). The CKD-EPI equation should not be used for patients with unstable renal function and has not been validated in children and those over 70. Current interpretive data was last reviewed 2021. Testing performed by: [address] [address] Blood 05/14/2024 4:57 AM CANCER PROGRAM CONSULTANT 05/14/2024 8:52 AM CANCER PROGRAM CONSULTANT us Notinfile Unknown LAB BLOOD ORDERABLES Final Res ult [facility] [address] [facility] Department [place] [address] * Differential, auto (05/14/2024 4:57 AM CANCER PROGRAM CONSULTANT) Neutrophil abs 6.2 1.5 - 6.5 K/cumm [facility] [place] Comment:Testing performed by : [address] [address] Imm gran abs 0.0 0.0 - 0.1 K/cumm [facility] [place] Comment:Testing performed by : [address] [address] Lymphocyte abs 1.4 0.8 - 3.3 K/cumm [facility] [place] Comment:Testing performed by : [address] [address] Monocyte abs 0.8 0.2 - 0.8 K/cumm [facility] Comment:Testing performed by : [address] [address] Eosinophil abs 0.1 0.0 - 0.5 K/cumm [facility] Comment:Testing performed by : [address] [address] Basophil abs 0.1 0.0 - 0.1 K/cumm [facility] Comment:Testing performed by : [address] [address] Neutrophil pct 71.4 % [facility] Comment: Interpretive Data Percent cell count reference ranges are not reported, since discordance with absolute values may lead to misinterpretation of CBC data. Current Interpretive Data was last revised on 2017. Testing performed by: [address] [address] Imm gran pct 0.5 % [facility] Comment: Interpretive Data Percent cell count reference ranges are not reported, since discordance with absolute values may lead to misinterpretation of CBC data. Current Interpretive Data was last revised on 2017. Testing performed by: [address] [address] Lymphocyte pct 16.4 % [facility] Comment: Interpretive Data Percent cell count reference ranges are not reported, since discordance with absolute values may lead to misinterpretation of CBC data. Current Interpretive Data was last revised on 2017. Testing performed by: [address] [address] Monocyte pct 9.5 % [facility] Comment: Interpretive Data Percent cell count reference ranges are not reported, since discordance with absolute values may lead to misinterpretation of CBC data. Current Interpretive Data was last revised on 2017. Testing performed by: [address] [address] Eosinophil pct 1.5 % [facility] Comment: Interpretive Data Percent cell count reference ranges are not reported, since discordance with absolute values may lead to misinterpretation of CBC data. Current Interpretive Data was last revised on 2017. Testing performed by: [address] [address] Basophil pct 0.7 % [facility] [place] Comment: Interpretive Data Percent cell count reference ranges are not reported, since discordance with absolute values may lead to misinterpretation of CBC data. Current Interpretive Data was last revised on 2017. Testing performed by: [address] [address] Blood 05/14/2024 4:57 AM CANCER PROGRAM CONSULTANT 05/14/2024 8:52 AM CANCER PROGRAM CONSULTANT us Notinfile Unknown LAB BLOOD ORDERABLES Final Res ult [facility] [place] [address] [facility] Department [place] [address] * (ABNORMAL) CBC with auto differential (05/14/2024 4:57 AM CANCER PROGRAM CONSULTANT) WBC 8.7 3.8 - 9.9 K/cumm [facility] [place] Comment:Testing performed by : [address] [address] Hgb 12.6(L) 13.0 - 17.5 g/dL [facility] [place] Comment:Testing performed by : [address] [address] Hct 37.1(L) 38.9 - 50.3 % [facility] [place] Comment:Testing performed by : [address] [address] Plt 221 150 - 400 K/cumm [facility] [place] Comment:Testing performed by : [address] [address] MPV 10.8 9.1 - 12.3 fL [facility] [place] Comment:Testing performed by : [address] [address] RBC 4.09(L) 4.30 - 5.80 M/cumm [facility] [place] Comment:Testing performed by : [address] [address] MCV 90.7 81.3 - 96.4 fL [facility] [place] Comment:Testing performed by : [address] [address] MCH 30.8 27.1 - 33.3 pg [facility] [place] Comment:Testing performed by : [address] [address] MCHC 34.0 32.3 - 35.7 g/dL [facility] [place] Comment:Testing performed by : [address] [address] RDW CV 13.3 11.1 - 14.9 % [facility] [place] Comment:Testing performed by : [address] [address] RDW SD 44.0 35.7 - 48.1 fL [facility] [place] Comment:Testing performed by : [address] [address] NRBC abs 0.00 0.00 - 0.01 K/cumm [facility] [place] Comment:Testing performed by : [address] [address] Blood 05/14/2024 4:57 AM CANCER PROGRAM CONSULTANT 05/14/2024 8:52 AM CANCER PROGRAM CONSULTANT us Notinfile Unknown LAB BLOOD ORDERABLES Final Res ult [facility] [address] [facility] Department of Laboratories [place], [place] [id number] * (ABNORMAL) Basic metabolic panel (05/14/2024 4:57 AM CANCER PROGRAM CONSULTANT) Sodium 140 135 - 145 mmol/L [facility] [place] Comment:Testing performed by : [address] [address] Potassium, pl 4.3 3.3 - 4.9 mmol/L [facility] [place] Comment:Testing performed by : [address] [address] Chloride 104 97 - 110 mmol/L [facility] [place] Comment:Testing performed by : [address] [address] CO2 25 22 - 32 mmol/L [facility] [place] Comment:Testing performed by : [address] [address] Anion gap 11 2 - 15 mmol/L [facility] [place] Comment:Testing performed by : [address] [address] BUN 16 6 - 25 mg/dL [facility] Comment:Testing performed by : [address] [address] Creatinine 0.60(L) 0.80 - 1.30 mg/dL [facility] Comment:Testing performed by : [address] [address] Glucose 125 70 - 199 mg/dL [facility] Comment: Interpretive Data Fasting glucose >/= 126 mg/dl is diagnostic for diabetes. Fasting is defined as no caloric intake for at least 8 hours. Fasting glucose between 100 mg/dl to 125 mg/dl is diagnostic of prediabetes. In a patient with classic symptoms of hyperglycemia or hyperglycemic crisis, a random glucose >/= 200 mg/dl is diagnostic for diabetes. In the absence of unequivocal hyperglycemia, results should be confirmed by repeat testing. The classification and Diagnosis of Diabetes Diabetes Care 202; 46: S19-S40. Current interpretive data was last revised 2022. Testing performed by: [address] [address] Calcium 9.2 8.5 - 10.3 mg/dL [facility] Comment:Testing performed by : [address] [address] Blood 05/14/2024 4:57 AM CANCER PROGRAM CONSULTANT 05/14/2024 8:52 AM CANCER PROGRAM CONSULTANT us Notinfile Unknown LAB BLOOD ORDERABLES Final Res ult [facility] [place] [address] [facility] Department [place] [address] * eGFR (05/12/2024 4:45 AM CANCER PROGRAM CONSULTANT) eGFR >90 >=60 mL/min/1. 73 m2 [facility] [place] Comment: Interpretive Data Reference Interval Normal >/= 90 mL/min/1.73m2 Mildly decreased* 60 - 89 mL/min/1.73m2 Mildly to moderately decreased 45 - 59 mL/min/1.73m2 Moderately to severely decreased 30 - 44 mL/min/1.73m2 Severely decreased 15 - 29 mL/min/1.73m2 Kidney Failure < 15 mL/min/1.73m2 *Relative to young adult level Estimated glomerular filtration rate is determined by the 2020 CKD-EPI equation recommended by the National Kidney Foundation (A Unifying Approach to GFR Estimation: Recommendations of the NKF-ASK Task Force on Reassessing the Inclusion of Race in Diagnosing Kidney Disease, JASN 2020). The CKD-EPI equation should not be used for patients with unstable renal function and has not been validated in children and those over 70. Current interpretive data was last reviewed 2021. Testing performed by: [address] [address] Blood 05/12/2024 4:45 AM CANCER PROGRAM CONSULTANT 05/12/2024 9:19 AM CANCER PROGRAM CONSULTANT us Notinfile Unknown LAB BLOOD ORDERABLES Final Res ult [facility] [address] [facility] Department [place] [address] * (ABNORMAL) Differential, auto (05/12/2024 4:45 AM CANCER PROGRAM CONSULTANT) Neutrophil abs 7.5(H) 1.5 - 6.5 K/cumm [facility] Comment:Testing performed by : [address] [address] Imm gran abs 0.0 0.0 - 0.1 K/cumm [facility] Comment:Testing performed by : [address] [address] Lymphocyte abs 1.3 0.8 - 3.3 K/cumm [facility] Comment:Testing performed by : [address] [address] Monocyte abs 1.0(H) 0.2 - 0.8 K/cumm [facility] Comment:Testing performed by : [address] [address] Eosinophil abs 0.1 0.0 - 0.5 K/cumm [facility] Comment:Testing performed by : [address] [address] Basophil abs 0.1 0.0 - 0.1 K/cumm [facility] Comment:Testing performed by : [address] [address] Neutrophil pct 75.5 % [facility] Comment: Interpretive Data Percent cell count reference ranges are not reported, since discordance with absolute values may lead to misinterpretation of CBC data. Current Interpretive Data was last revised on 2017. Testing performed by: [address] [address] Imm gran pct 0.4 % [facility] Comment: Interpretive Data Percent cell count reference ranges are not reported, since discordance with absolute values may lead to misinterpretation of CBC data. Current Interpretive Data was last revised on 2017. Testing performed by: [address] [address] Lymphocyte pct 12.7 % [facility] Comment: Interpretive Data Percent cell count reference ranges are not reported, since discordance with absolute values may lead to misinterpretation of CBC data. Current Interpretive Data was last revised on 2017. Testing performed by: [address] [address] Monocyte pct 9.8 % [facility] Comment: Interpretive Data Percent cell count reference ranges are not reported, since discordance with absolute values may lead to misinterpretation of CBC data. Current Interpretive Data was last revised on 2017. Testing performed by: [address] [address] Eosinophil pct 1.1 % [facility] Comment: Interpretive Data Percent cell count reference ranges are not reported, since discordance with absolute values may lead to misinterpretation of CBC data. Current Interpretive Data was last revised on 2017. Testing performed by: [address] [address] Basophil pct 0.5 % [facility] Comment: Interpretive Data Percent cell count reference ranges are not reported, since discordance with absolute values may lead to misinterpretation of CBC data. Current Interpretive Data was last revised on 2017. Testing performed by: [address] [address] Blood 05/12/2024 4:45 AM CANCER PROGRAM CONSULTANT 05/12/2024 9:19 AM CANCER PROGRAM CONSULTANT us Notinfile Unknown LAB BLOOD ORDERABLES Final Res ult [facility] [address] [facility] Department [place] [address] * (ABNORMAL) CBC with auto differential (05/12/2024 4:45 AM CANCER PROGRAM CONSULTANT) WBC 10.0(H) 3.8 - 9.9 K/cumm [facility] Comment:Testing performed by : [address] [address] Hgb 12.7(L) 13.0 - 17.5 g/dL [facility] Comment:Testing performed by : [address] [address] Hct 37.3(L) 38.9 - 50.3 % [facility] Comment:Testing performed by : [address] [address] Plt 217 150 - 400 K/cumm [facility] Comment:Testing performed by : [address] [address] MPV 11.0 9.1 - 12.3 fL [facility] Comment:Testing performed by : [address] [address] RBC 4.10(L) 4.30 - 5.80 M/cumm [facility] Comment:Testing performed by : [address] [address] MCV 91.0 81.3 - 96.4 fL [facility] Comment:Testing performed by : [address] [address] MCH 31.0 27.1 - 33.3 pg [facility] [place] Comment:Testing performed by : [address] [address] MCHC 34.0 32.3 - 35.7 g/dL [facility] [place] Comment:Testing performed by : [address] [address] RDW CV 13.7 11.1 - 14.9 % [facility] [place] Comment:Testing performed by : [address] [address] RDW SD 45.6 35.7 - 48.1 fL [facility] [place] Comment:Testing performed by : [address] [address] NRBC abs 0.00 0.00 - 0.01 K/cumm [facility] [place] Comment:Testing performed by : [address] [address] Blood 05/12/2024 4:45 AM CANCER PROGRAM CONSULTANT 05/12/2024 9:19 AM CANCER PROGRAM CONSULTANT us Notinfile Unknown LAB BLOOD ORDERABLES Final Res ult [facility] [address] [facility] Department [place] [address] * (ABNORMAL) Basic metabolic panel (05/12/2024 4:45 AM CANCER PROGRAM CONSULTANT) Sodium 138 135 - 145 mmol/L [facility] [place] Comment:Testing performed by : [address] [address] Potassium, pl 3.9 3.3 - 4.9 mmol/L [facility] [place] Comment:Testing performed by : [address] [address] Chloride 102 97 - 110 mmol/L [facility] [place] Comment:Testing performed by : [address] [address] CO2 26 22 - 32 mmol/L [facility] [place] Comment:Testing performed by : [address] [address] Anion gap 10 2 - 15 mmol/L [facility] [place] Comment:Testing performed by : [address] [address] BUN 17 6 - 25 mg/dL [facility] Comment:Testing performed by : [address] [address] Creatinine 0.60(L) 0.80 - 1.30 mg/dL [facility] [place] Comment:Testing performed by : [address] [address] Glucose 153 70 - 199 mg/dL [facility] Comment: Interpretive Data Fasting glucose >/= 126 mg/dl is diagnostic for diabetes. Fasting is defined as no caloric intake for at least 8 hours. Fasting glucose between 100 mg/dl to 125 mg/dl is diagnostic of prediabetes. In a patient with classic symptoms of hyperglycemia or hyperglycemic crisis, a random glucose >/= 200 mg/dl is diagnostic for diabetes. In the absence of unequivocal hyperglycemia, results should be confirmed by repeat testing. The classification and Diagnosis of Diabetes Diabetes Care 2021; 46: S19-S40. Current interpretive data was last revised 2022. Testing performed by: [address] [address] Calcium 9.2 8.5 - 10.3 mg/dL [facility] Comment:Testing performed by : [address] [address] Blood 05/12/2024 4:45 AM CANCER PROGRAM CONSULTANT 05/12/2024 9:19 AM CANCER PROGRAM CONSULTANT us Notinfile Unknown LAB BLOOD ORDERABLES Final Res ult [facility] [address] [facility] Department [place] [address] * Influenza A/B, RSV, and COVID-19 PCR Nasopharyngeal (05/09/2024 11:20 AM CANCER PROGRAM CONSULTANT) Pathologist [facility] COVID-19 RNA Negative Negative [facility] [place] Comment:Testing performed by : [address] [address] Influenza A RNA Negative Negative [facility] Comment:Testing performed by : [address] [address] Influenza B RNA Negative Negative [facility] Comment:Testing performed by : [address] [address] RSV RNA Negative Negative [facility] Comment: Interpretive data: Testing performed by [facility]. This test is performed using the [employer] Xpert Xpress CoV-2/Flu/RSV plus assay. This is a multiplex, real-time reverse transcriptase PCR assay intended for the qualitative detection of nucleic acid from SARS-CoV-2, influenza A, influenza B, and respiratory syncytial virus. This assay has been cleared by the [place] Food and Drug administration. The performance characteristics have been verified by the [facility]. Results must be considered in the clinical context, and a negative result does not rule out infection. Interpretive Data last revised 2023 Testing performed by: [address] [address] Nasopharyngeal 05/09/2024 11 :20 AM CANCER PROGRAM CONSULTANT 05/09/2024 12:30 PM CANCER PROGRAM CONSULTANT us Notinfile Unknown LAB MICROBIOLOGY - GENERAL ORD ERABLES Final Result [facility] Department [place] [address] * (ABNORMAL) Differential, auto (05/06/2024 4:57 AM CANCER PROGRAM CONSULTANT) Neutrophil abs 6.6(H) 1.5 - 6.5 K/cumm [facility] Comment:Testing performed by : [address] [address] Imm gran abs 0.1 0.0 - 0.1 K/cumm [facility] Comment:Testing performed by : [address] [address] Lymphocyte abs 1.6 0.8 - 3.3 K/cumm [facility] Comment:Testing performed by : [address] [address] Monocyte abs 0.6 0.2 - 0.8 K/cumm [facility] Comment:Testing performed by : [address] [address] Eosinophil abs 0.1 0.0 - 0.5 K/cumm [facility] Comment:Testing performed by : [address] [address] Basophil abs 0.1 0.0 - 0.1 K/cumm [facility] Comment:Testing performed by : [address] [address] Neutrophil pct 72.1 % [facility] Comment: Interpretive Data Percent cell count reference ranges are not reported, since discordance with absolute values may lead to misinterpretation of CBC data. Current Interpretive Data was last revised on 2017. Testing performed by: [address] [address] Imm gran pct 1.0 % [facility] Comment: Interpretive Data Percent cell count reference ranges are not reported, since discordance with absolute values may lead to misinterpretation of CBC data. Current Interpretive Data was last revised on 2017. Testing performed by: [address] [address] Lymphocyte pct 17.9 % [facility] Comment: Interpretive Data Percent cell count reference ranges are not reported, since discordance with absolute values may lead to misinterpretation of CBC data. Current Interpretive Data was last revised on 2017. Testing performed by: [address] [address] Monocyte pct 7.0 % [facility] Comment: Interpretive Data Percent cell count reference ranges are not reported, since discordance with absolute values may lead to misinterpretation of CBC data. Current Interpretive Data was last revised on 2017. Testing performed by: [address] [address] Eosinophil pct 1.5 % [facility] Comment: Interpretive Data Percent cell count reference ranges are not reported, since discordance with absolute values may lead to misinterpretation of CBC data. Current Interpretive Data was last revised on 2017. Testing performed by: [address] [address] Basophil pct 0.5 % [facility] Comment: Interpretive Data Percent cell count reference ranges are not reported, since discordance with absolute values may lead to misinterpretation of CBC data. Current Interpretive Data was last revised on 2017. Testing performed by: [address] [address] Blood 05/06/2024 4:57 AM CANCER PROGRAM CONSULTANT 05/06/2024 8:25 AM CANCER PROGRAM CONSULTANT us Notinfile Unknown LAB BLOOD ORDERABLES Final Res ult FR[facility] [address] [facility] Department [place] [address] * (ABNORMAL) CBC with auto differential (05/06/2024 4:57 AM CANCER PROGRAM CONSULTANT) WBC 9.2 3.8 - 9.9 K/cumm [facility] [place] Comment:Testing performed by : [address] [address] Hgb 12.1(L) 13.0 - 17.5 g/dL [facility] [place] Comment:Testing performed by : [address] [address] Hct 35.4(L) 38.9 - 50.3 % [facility] [place] Comment:Testing performed by : [address] [address] Plt 279 150 - 400 K/cumm [facility] [place] Comment:Testing performed by : [address] [address] MPV 10.2 9.1 - 12.3 fL [facility] [place] Comment:Testing performed by : [address] [address] RBC 3.91(L) 4.30 - 5.80 M/cumm [facility] [place] Comment:Testing performed by : [address] [address] MCV 90.5 81.3 - 96.4 fL [facility] [place] Comment:Testing performed by : [address] [address] MCH 30.9 27.1 - 33.3 pg [facility] [place] Comment:Testing performed by : [address] [address] MCHC 34.2 32.3 - 35.7 g/dL [facility] [place] Comment:Testing performed by : [address] [address] RDW CV 13.3 11.1 - 14.9 % [facility] [place] Comment:Testing performed by : [address] [address] RDW SD 43.6 35.7 - 48.1 fL [facility] [place] Comment:Testing performed by : [address] [address] NRBC abs 0.00 0.00 - 0.01 K/cumm [facility] [place] Comment:Testing performed by : [address] [address] Blood 05/06/2024 4:57 AM CANCER PROGRAM CONSULTANT 05/06/2024 8:25 AM CANCER PROGRAM CONSULTANT us Notinfile Unknown LAB BLOOD ORDERABLES Final Res ult [facility] [place] [address] [facility] Department of Laboratories [place], [place] [id number] * eGFR (05/05/2024 5:05 AM CANCER PROGRAM CONSULTANT) eGFR >90 >=60 mL/min/1. 73 m2 [facility] [place] Comment: Interpretive Data Reference Interval Normal >/= 90 mL/min/1.73m2 Mildly decreased* 60 - 89 mL/min/1.73m2 Mildly to moderately decreased 45 - 59 mL/min/1.73m2 Moderately to severely decreased 30 - 44 mL/min/1.73m2 Severely decreased 15 - 29 mL/min/1.73m2 Kidney Failure < 15 mL/min/1.73m2 *Relative to young adult level Estimated glomerular filtration rate is determined by the 2020 CKD-EPI equation recommended by the National Kidney Foundation (A Unifying Approach to GFR Estimation: Recommendations of the NKF-ASK Task Force on Reassessing the Inclusion of Race in Diagnosing Kidney Disease, JASN 2020). The CKD-EPI equation should not be used for patients with unstable renal function and has not been validated in children and those over 70. Current interpretive data was last reviewed 2021. Testing performed by: [address] [address] Blood 05/05/2024 5:05 AM CANCER PROGRAM CONSULTANT 05/05/2024 8:24 AM CANCER PROGRAM CONSULTANT us Notinfile Unknown LAB BLOOD ORDERABLES Final Res ult FR[facility]IS[facility] [address] [facility] Department [place] [address] * (ABNORMAL) Differential, auto (05/05/2024 5:05 AM CANCER PROGRAM CONSULTANT) Neutrophil abs 8.1(H) 1.5 - 6.5 K/cumm FRANSISCA Comment:Testing performed by : [address] [address] Imm gran abs 0.1 0.0 - 0.1 K/cumm FR[facility] Comment:Testing performed by : [address] [address] Lymphocyte abs 1.5 0.8 - 3.3 K/cumm FR[facility] Comment:Testing performed by : [address] [address] Monocyte abs 0.7 0.2 - 0.8 K/cumm FR[facility] Comment:Testing performed by : [address] [address] Eosinophil abs 0.1 0.0 - 0.5 K/cumm FR[facility] Comment:Testing performed by : [address] [address] Basophil abs 0.0 0.0 - 0.1 K/cumm FR[facility] Comment:Testing performed by : [address] [address] Neutrophil pct 76.9 % FR[facility] Comment: Interpretive Data Percent cell count reference ranges are not reported, since discordance with absolute values may lead to misinterpretation of CBC data. Current Interpretive Data was last revised on 2017. Testing performed by: [address] [address] Imm gran pct 1.0 % [facility] Comment: Interpretive Data Percent cell count reference ranges are not reported, since discordance with absolute values may lead to misinterpretation of CBC data. Current Interpretive Data was last revised on 2017. Testing performed by: [address] [address] Lymphocyte pct 13.9 % [facility] Comment: Interpretive Data Percent cell count reference ranges are not reported, since discordance with absolute values may lead to misinterpretation of CBC data. Current Interpretive Data was last revised on 2017. Testing performed by: [address] [address] Monocyte pct 6.6 % [facility] Comment: Interpretive Data Percent cell count reference ranges are not reported, since discordance with absolute values may lead to misinterpretation of CBC data. Current Interpretive Data was last revised on 2017. Testing performed by: [address] [address] Eosinophil pct 1.2 % [facility] Comment: Interpretive Data Percent cell count reference ranges are not reported, since discordance with absolute values may lead to misinterpretation of CBC data. Current Interpretive Data was last revised on 2017. Testing performed by: [address] [address] Basophil pct 0.4 % [facility] Comment: Interpretive Data Percent cell count reference ranges are not reported, since discordance with absolute values may lead to misinterpretation of CBC data. Current Interpretive Data was last revised on 2017. Testing performed by: [address] [address] Blood 05/05/2024 5:0 5 AM CANCER PROGRAM CONSULTANT 05/05/2024 8:24 AM CANCER PROGRAM CONSULTANT us Notinfile Unknown LAB BLOOD ORDERABLES Final Res ult FR[facility]CA [address] [facility] Department [place] [address] * (ABNORMAL) CBC with auto differential (05/05/2024 5:05 AM CANCER PROGRAM CONSULTANT) [facility] Signature WBC 10.6(H) 3.8 - 9.9 K/cumm FR[facility] Comment:Testing performed by : [address], [address] Hgb 12.1(L) 13.0 - 17.5 g/dL FR[facility] Comment:Testing performed by : [address], [address] Hct 35.2(L) 38.9 - 50.3 % FR[facility] Comment:Testing performed by : [address], [address] Plt 291 150 - 400 K/cumm FR[facility] Comment:Testing performed by : [address], [address] MPV 10.1 9.1 - 12.3 fL [facility] Comment:Testing performed by : [address], [address] RBC 3.87(L) 4.30 - 5.80 M/cumm [facility] Comment:Testing performed by : [address], [address] MCV 91.0 81.3 - 96.4 fL [facility] Comment:Testing performed by : [address], [address] MCH 31.3 27.1 - 33.3 pg [facility] Comment:Testing performed by : [address], [address] MCHC 34.4 32.3 - 35.7 g/dL [facility] Comment:Testing performed by : [address], [address] RDW CV 13.3 11.1 - 14.9 % [facility] Comment:Testing performed by : [address], [address] RDW SD 43.7 35.7 - 48.1 fL [facility] Comment:Testing performed by : [address], [address] NRBC abs 0.00 0.00 - 0.01 K/cumm CERNER Comment:Testing performed by : [address] [address] Blood 05/05/2024 5:05 AM CANCER PROGRAM CONSULTANT 05/05/2024 8:24 AM CANCER PROGRAM CONSULTANT us Notinfile Unknown LAB BLOOD ORDERABLES Final Res ult FR[facility]ISCA [address] [facility] Department [place] [address] * (ABNORMAL) Basic metabolic panel (05/05/2024 5:05 AM CANCER PROGRAM CONSULTANT) Sodium 138 135 - 145 mmol/L [facility] Comment:Testing performed by : [address] [address] Potassium, pl 4.1 3.3 - 4.9 mmol/L [facility] Comment:Testing performed by : [address] [address] Chloride 104 97 - 110 mmol/L [facility] Comment:Testing performed by : [address] [address] CO2 25 22 - 32 mmol/L [facility] Comment:Testing performed by : [address] [address] Anion gap 9 2 - 15 mmol/L [facility] Comment:Testing performed by : [address] [address] BUN 17 6 - 25 mg/dL [facility] Comment:Testing performed by : [address] [address] Creatinine 0.70(L) 0.80 - 1.30 mg/dL [facility] Comment:Testing performed by : [address] [address] Glucose 142 70 - 199 mg/dL [facility] Comment: Interpretive Data Fasting glucose >/= 126 mg/dl is diagnostic for diabetes. Fasting is defined as no caloric intake for at least 8 hours. Fasting glucose between 100 mg/dl to 125 mg/dl is diagnostic of prediabetes. In a patient with classic symptoms of hyperglycemia or hyperglycemic crisis, a random glucose >/= 200 mg/dl is diagnostic for diabetes. In the absence of unequivocal hyperglycemia, results should be confirmed by repeat testing. The classification and Diagnosis of Diabetes Diabetes Care 202; 46: S19-S40. Current interpretive data was last revised 2022. Testing performed by: [facility], [address] [place] [address]., [address] Calcium 9.2 8.5 - 10.3 mg/dL [facility] [place] Comment:Testing performed by : [facility], [address] [place] [address], [place]., [address] Blood 05/05/2024 5:05 AM CANCER PROGRAM CONSULTANT 05/05/2024 8:24 AM CANCER PROGRAM CONSULTANT us Notinfile Unknown LAB BLOOD ORDERABLES Final Res ult [facility] [place] [address] [facility] Department [place] [address] * CT Lung Cancer Screening (03/11/2024 1:07 PM CANCER PROGRAM CONSULTANT) Anatomical Region Laterality Modality Chest N/A Computed Tomogra phy 03/11/2024 1:46 PM CANCER PROGRAM CONSULTANT Impressions 03/11/2024 2:47 PM CANCER PROGRAM CONSULTANT 1. LungRADS Category 2 (benign). Recommend Low dose Screening CT of chest in 12 months. 2. Significant coronary artery atherosclerotic disease. LungRADS Categories: 1 - Negative (no nodules, or only benign calcified or fat-containing nodules) 2 - Benign Appearance or Behavior (nodules with very low likelihood of becoming a clinically active cancer due to size or lack of growth) 3 - Probably Benign (probably benign findings-short term follow up suggested; includes nodules with a low likelihood of becoming a clinically active cancer) 4A,4B,4X - Suspicious (category 3 or 4 nodules with findings for which additional diagnostic testing and/or tissue sampling is recommended) S - Other (clinically significant or potentially clinically significant findings (non-lung cancer) C - Prior Lung Cancer (modifier for patients with a prior diagnosis of lung cancer who return to screening) Dictated by: Cristine Lopez MD The radiology attending physician has personally reviewed this study, and had reviewed and/or edited this written report and agrees with it. Electronically signed by: John Conte M.D. Narrative 03/11/2024 2:47 PM CANCER PROGRAM CONSULTANT EXAMINATION: Lung cancer screening CT of the Chest without intravenous contrast HISTORY: Lung Cancer Screening TECHNIQUE: Low radiation dose chest protocol. No intravenous contrast. Reconstructed slice width 1.[address] Dose Index 0.84 mGy. Dose-length product 33 mGy-cm. COMPARISON: None available FINDINGS: Lung nodules or findings of lung cancer: Left apical solid pulmonary nodule measuring 4 mm (table position -1389.3). Smoking related lung disease: Mild RB/RB-ILD Other findings: Moderate coronary artery atherosclerotic calcifications. Thoracoabdominal aortic calcifications. Cholecystectomy. Splenic calcifications. Degenerative changes of the spine. Procedure Note John Conte MD - 03/11/2024 EXAMINATION: Lung cancer screening CT of the Chest without intravenous contrast HISTORY: Lung Cancer Screening TECHNIQUE: Low radiation dose chest protocol. No intravenous contrast. Reconstructed slice width 1.[address] Dose Index 0.84 mGy. Dose-length product 33 mGy-cm. COMPARISON: None available FINDINGS: Lung nodules or findings of lung cancer: Left apical solid pulmonary nodule measuring 4 mm (table position -1389.3). Smoking related lung disease: Mild RB/RB-ILD Other findings: Moderate coronary artery atherosclerotic calcifications. Thoracoabdominal aortic calcifications. Cholecystectomy. Splenic calcifications. Degenerative changes of the spine. IMPRESSION: 1. LungRADS Category 2 (benign). Recommend Low dose Screening CT of chest in 12 months. 2. Significant coronary artery atherosclerotic disease. LungRADS Categories: 1 - Negative (no nodules, or only benign calcified or fat-containing nodules) 2 - Benign Appearance or Behavior (nodules with very low likelihood of becoming a clinically active cancer due to size or lack of growth) 3 - Probably Benign (probably benign findings-short term follow up suggested; includes nodules with a low likelihood of becoming a clinically active cancer) 4A,4B,4X - Suspicious (category 3 or 4 nodules with findings for which additional diagnostic testing and/or tissue sampling is recommended) S - Other (clinically significant or potentially clinically significant findings (non-lung cancer) C - Prior Lung Cancer (modifier for patients with a prior diagnosis of lung cancer who return to screening) Dictated by: Cristine Lopez MD The radiology attending physician has personally reviewed this study, and had reviewed and/or edited this written report and agrees with it. Electronically signed by: John Conte M.D. Charlie Kan MD IMG CT PROCEDURES Final Result * (ABNORMAL) Hepatitis panel, acute (09/25/2016 4:15 PM CDT) Hep A IgM NON-[facility]ACT [facility] NON-[facility]ACT [facility] HISTORICAL RESULTS HepBsAg NON-REACT [facility] NON-[facility]ACT [facility]ICAL RESULTS Hep B core IgM NON-REACT [facility] NON-[facility]ACT [facility] HISTORICAL RESULTS Hep C Ab REACTIVE( A) NON-[facility]ACT [facility] RES[facility] SIGNAL TO CUT-OFF 29.00(H) <1.00 [facility] HISTORICAL RESULTS Comment: Following CDC recommendations (MMWR No. 62, 2013), this patient's HCV Antibody Reactive sample will be tested for the presence of HCV RNA by a Nucleic Acid Amplification Test (NAAT) to determine if the patient has an active HCV infection. HCV RNA IU/mL 3767525(H ) <15 IU/mL [facility] RES[facility] HCV RNA log IU/mL 6.73(H) <1.18 Log IU/mL [facility] Comment: Please note: Patients with circulating anti-HCV antibodies that have detectable HCV RNA as determined by [facility], should be considered to have an active HCV infection. Please correlate these findings with the patient's clinical history and any other diagnostics findings, including any evidence of liver dysfunction. Please consider the current Treatment Guidelines for the management of these patients (J Hepatol, 0579-0903, ). COMMENT [facility] H[facility]ORICAL RESULTS Comment: The analytical performance characteristics of this assay have been determined by [employer]. The modifications have not been cleared or approved by the FDA. This assay has been validated pursuant to the CLIA regulations and is used for clinical purposes. This test was performed using the KLAUS(R)AmpliPrep/ KLAUS(R)TaqMan(R)HCV Test,v2.0. For more information on this test, go to: http://education.[employer] Select/faq/MGU07u5 (This link is being provided for informational/ educational purposes only.) 09/25/2016 4:15 PM CDT 09/27/2016 12:45 PM CDT Narrative [facility] HISTORICAL RESULTS - 09/27/2016 12:34 PM CDT 0 PERFORMING LAB: [place], [facility] [address] [address] [phone] Abhinav Cruz D.O., MPH us Historical Provider LAB MICROBIOLOGY - GENERA L ORDERABLES Final Result [facility] HISTORICAL RESULTS from Last 3 Months or Most Recently Relevant to Health Maintenance Insurance Advance Directives For more information, please contact: [phone] Documents on File Type Date Recorded Patient Chaperone Expl anation ADVANCE DIRECTIVE 03/24/2024 7:47 AM Susan r of Parole Officer-Medical * Full Code (Latest Code Status on File) Date Activated Date Inactivated Comments 04/22/2024 5:16 AM 04/25/2024 5:38 PM * Full Code Date Activated Date Inactivated Comments 04/08/2024 9:42 PM 04/11/2024 6:32 PM * Full Code Date Activated Date Inactivated Comments 02/21/2024 12:46 AM 02/26/2024 6:04 PM Care Teams Rpg Programmer Analyst Relationship Specialty Start Date End Date Chani Beltran MD PhD [address] [facility] [place] [address] PCP - General 03/25/24 Heidi Fay MD [address] [place] [address] Consulting Physician Neurosurgery 04/10/24
--- OUTSIDE RECORDS SUMMARY | 2024-08-03 16:19 | XMS_ITS | Continuity of Care Document ---
Author Organization [facility] Address [address] [place] [address] Phone Care Team Providers Care Behavioral Health Tech Name Role Phone Shayla Chatterjee Unavailable Unavailable Advance Directives Directive Yes / No Effective Date File Name No Information Encounters Encounter Description Practice Location Reason(s) For Visit Diagnoses Date Provider Providers Copied on Encounter [facility], [address], [place], [place], [id number], [place] tel:[phone] [facility] [place] No Information Jul- 1-200 0 Shena Mcguire. [address] , [address], [place], [address], [place]. tel:[phone] Family History Family Member Type Diagnosis Age At Onset No Information Payers Payer name Insurance type Covered green party ID Authoriza tion(s) [employer] SOI CI [id number] Social History Type Description Quantity Date Captured Comments Sex Male Smoking Status No Information Chief Complaint And Reason For Visit No Information Reason For Referral Reason For Referral No Information History Of Present Illness Encounter Date Complaint History Of Prese nt Illness No Information Functional Status Date Functional Assessmen t No Information Instructions Date Instruction Additional Infor mation No Information Assessments Type Assessment Date No Information Patient Care Teams Name Effective Dates (start - stop) Status Members No Information
--- OUTSIDE RECORDS SUMMARY | 2024-08-03 16:19 | XMS_ITS | Encounter Summary ---
Author Organization [facility] Care Team Providers Care Perioperative Manager Name Role Phone No, Physician Primary Care Provider Chani Beltran MD PhD Primary Care Provi ahlle Chani Beltran MD PhD Primary Care Provi halle Heidi Fay MD Unavailable [phone] Encounter Details Date Type Department Care Team (Latest Contact Info) Description 09/20/2016 Orders Only [facility] CLINCONV ProviderAna MD [address] [place] [id number] Social History Tobacco Use Types Packs/Day Years Used Date Smoking Tobacco: Never Assessed Sex and Gender Information Value Date Recorded Sex Assigned at Not on file Legal Sex Male 9:06 PM HEARING CARE PRACTITIONER Gender Identity Not on file Sexual Orientation Not on file documented as of this encounter Plan of Treatment Scheduled Procedures Name Priority Associated Diagnoses Date/Ti me COLONOSCOPY Open Access Healthcare maintenance documented as of this encounter Procedures Procedure Name Priority Date/Time Associated Diagnosis Comments CARDIOLOGY REPORT 09/25/2016 12: 00 AM CDT documented in this encounter Results * CARDIOLOGY REPORT (09/25/2016 12:00 AM CDT) Anatomical Region Laterality Modality Other Narrative 09/25/2016 12:00 AM CDT Ordered by an unspecified provider. Historical Provider CV CARDIAC SERVICES [facility] HOUSE Final Result documented in this encounter Visit Diagnoses Not on filedocumented in this encounter Additional Health Concerns Infection Onset Date Last Indicated Resolved Time Exposure, COVID-19 Comment:02/26/2024- Patient exposed to positive roommate. Will remain on Isolation for 10 full days. Monitor for s/sx, test if s/sx develop. A negative test cannot be used to remove Isolation. Riya Bernal 02/26/2024 02/26/2024 03/07/2024 3:05 AM C DT COVID: Suspected 04/08/2024 04/08/2024 04/08/2024 3:31 PM HEARING CARE PRACTITIONER Ring Surveillance Comment:Discharge swab not collected This flag is used to identify patient who are in house who are being monitored by Infection Prevention. If the patient is discharged and a swab has not been collected, if patient returns to hospital within 7 days a surveillance swab is to be collected (Reach out to IP for order) Patient does NOT need isolation, patient can travel off the floor. C auris 04/10/2024 04/10/2024 04/18/2024 3:[address] documented as of this encounter Care Teams Perioperative Manager Relationship Specialty Start Date End Date No, Physician PCP - General 11/27/23 12/17/23 Chani Beltran MD PhD [address] [facility] [place] [id number] [place] [address] PCP - General 12/18/23 03/24/24 Chani Beltran MD PhD [address] [facility] [place] [address] PCP - General 03/25/24 Heidi Fay MD [address] [place] [address] Consulting Physician Neurosurgery 04/10/24 documented as of this encounter
--- OUTSIDE RECORDS SUMMARY | 2024-08-03 16:19 | XMS_ITS | Referral Summary ---
Author Organization [facility] Address [address] [place] [address] Care Team Providers Care Pharmacognosy Teacher Name Role Phone Chani Beltran MD PhD Primary Care Provi halle Heiid Fay MD Unavailable Encounters Date Type Department Care Team Description 07/21/2024 Orders Only [facility] Neurosurgery [address] [place] [address] Medical Office Building [address] [place] [phone] Heidi Fay MD Osteoarthritis of cervical spine, unspecified spinal osteoarthritis complication status (Primary Dx); History of spinal cord injury 07/17/2024 2:15 PM CDT - 07/17/2024 11:59 PM CDT Hospital Encounter [facility] [address] [place] [address] [address] [place] [phone] Osteoarthritis of cervical spine, unspecified spinal osteoarthritis complication status Discharge Disposition: Discharge to home or self care 07/17/2024 2:45 PM CDT Office Visit [facility] Neurosurgery [address] [place] [address] Office Building [address] [place] [phone] Heidi Fay MD Osteoarthritis of cervical spine, unspecified spinal osteoarthritis complication status 07/10/2024 Orders Only [facility] Neurosurgery [address] [place] [address] Office Building [address] [place] [phone] Heidi Fay MD Osteoarthritis of cervical spine, unspecified spinal osteoarthritis complication status (Primary Dx) 07/09/2024 Telephone [facility] Home Care Services [address] [place] [address] Cece Boyce RN 07/09/2024 Orders Only [facility] Neurosurgery [facility] Office [facility] [address] [place] [address] Heidi Fay MD Osteoarthritis of cervical spine, unspecified spinal osteoarthritis complication status (Primary Dx) 06/05/2024 2:30 PM COOLING TOWER OPERATOR Office Visit [facility] Ophthalmology [address] [place] [address] 1st [place] [address] Primary open angle glaucoma (POAG) of both eyes, severe stage (Primary Dx) 06/02/2024 Orders Only [facility] Neurosurgery [address] [place] [address] 4 [address] [place] [phone] Heidi Fay MD Osteoarthritis of cervical spine, unspecified spinal osteoarthritis complication status (Primary Dx) 06/02/2024 2:27 PM COOLING TOWER OPERATOR - 06/02/2024 11:59 PM COOLING TOWER OPERATOR Hospital Encounter [facility] [address] [place] [phone] Osteoarthritis of cervical spine, unspecified spinal osteoarthritis complication status Discharge Disposition: Discharge to home or self care 06/02/2024 2:45 PM COOLING TOWER OPERATOR Office Visit [facility] Neurosurgery [address] [place] [address] 4 [address] [place] [address] Heidi Fay MD Osteoarthritis of cervical spine, unspecified spinal osteoarthritis complication status 05/30/2024 Orders Only [facility] Neurosurgery [address] [place] [address] 4 [address] [place] [phone] Heidi Fay MD Osteoarthritis of cervical spine, unspecified spinal osteoarthritis complication status (Primary Dx) 05/27/2024 Orders Only [facility] [address] [place] [address] Outpatient Health [address] [place] [address] Janette Mas MD Foot callus (Primary Dx) 05/14/2024 Orders Only [facility] [phone] Unknown, Notinfile 05/12/2024 Orders Only [facility] [phone] Unknown, Notinfile 05/09/2024 Orders Only [facility] [phone] Unknown, Notinfile 05/06/2024 Orders Only [facility] [phone] Unknown, Notinfile 05/05/2024 Orders Only [facility] [phone] Unknown, Notinfile from Last 3 Months Allergies Active Allergy Reactions Criticality Noted Date [...] 04/10/2024 Assessment & Plan (04/10/2024 2:29 PM COOLING TOWER OPERATOR): Does not wish to return to current ECF. CC working with sister to find new ECF. Have decided to return to previous ECF- everyone was really nice just overworked Central cord syndrome, subsequent encounter 07/2023 Assessment & Plan (04/11/2024 9:53 AM COOLING TOWER OPERATOR): P/w worsening falls, numbness in all extremities [...] 04/08/2024 Assessment & Plan (04/10/2024 10:01 AM COOLING TOWER OPERATOR): His sister reports that he has had [...] 03/04/2024 Assessment & Plan (06/05/2024 3:40 PM COOLING TOWER OPERATOR): Tmax 20/23, +FHx (sister, father), angles open [...] the future and has an appointment with NSGY in early March Assessment & Plan (03/07/2024 5:02 PM CDT): - reordered gabapentin - provided resources through department for aging for help at home, patients sister will call to set up - filled out handicap sticker request - home OT/PT - follow closely with NSGY (appt Nov) - advised patient to return to ER if symptoms worsen Smoking 02/04/2024 Assessment & Plan (04/08/2024 10:11 PM COOLING TOWER OPERATOR): Reports quitting tobacco. - congratulated patient on [...] he is being bit (currently lives in motel). Is worried he has kaycee but exam [...] ophthalmology. 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 Utilities Answer Date Recorded In the past 12 months has e [employer], [employer], oil, or water [employer] threatened to shut off services in your [...] often do you attend chur ch or congregational services? Never 04/24/2024 Do you belong to any clubs o r organizations such as lutheran groups, unions, fraternal or athletic groups, or [...] any time in the past 12 m [facility], were you homeless or living in a senior living (including now)? No 04/24/2024 Personal Safety Answer Date Recorded Have you ever been in or are you currently in a harmful physical or emotional relationship or is someone making you feel afraid or unsafe? Denies 04/21/2024 Sex and Gender Information Value Date Recorded Sex Assigned at Not on file Legal Sex Male 9:06 PM COOLING TOWER OPERATOR Gender Identity Not on file Sexual Orientation Not on file Last Filed Vital Signs Vital Sign Reading Time Taken Comments Blood Pressure 106/60 04/25/2024 11:26 AM COOLING TOWER OPERATOR Pulse 95 04/25/2024 11:26 AM COOLING TOWER OPERATOR Temperature 37.7 C (99.9 F) 04/25/2024 11:26 AM COOLING TOWER OPERATOR Respiratory Rate 17 04/25/2024 11:26 AM COOLING TOWER OPERATOR Oxygen Saturation 99% 04/25/2024 11:26 AM COOLING TOWER OPERATOR Inhaled Oxygen Concentration - - Weight 83 kg (183 lb) 07/17/2024 3:13 PM CDT Height 177.8 cm (5' 10 ) 07/17/2024 3:13 PM CDT Body Mass Index 26.26 07/17/2024 3:13 PM CDT Plan of Treatment Scheduled Procedures Name Priority Associated Diagnoses Date/Ti me COLONOSCOPY Open Access Healthcare maintenance Medical Devices Implanted Type Area Cocoa Bean Roaster Device Identifier Shelf Expiration Date Model / Serial / Lot [employer] Centerpiece 10mm Multiple Hole Open Door Precut Kickstand Color 853-010 - [id number] Implanted:Qty: 3 on 04/21/2024 by Heidi Fay MD at [facility] N/A: Spine Cervical [employer] 853-010 / / [employer] Spinal Screw Anterior Cervical Odlp Solid 2.0x5mm [id number] - [id number] Implanted:Qty: 5 on 04/21/2024 by Heidi Fay MD at [facility] N/A: Spine Cervical [employer] [id number] / / [employer] Spinal Screw Anterior Cervical Odlp Solid 2.0x7mm [id number] - [id number] Implanted:Qty: 7 on 04/21/2024 by Heidi Fay MD at [facility] N/A: Spine Cervical [employer] [id number] / / Procedures Procedure Name Priority Date/Time Associated Diagnosis Comments XR SPINE CERVICAL 2 OR 3 VIEWS Schedule Routine, Read Routine (OP Routine) 07/17/2024 3:14 PM CDT Osteoarthritis of cervical spine, unspecified spinal osteoarthritis complication status LORENZO VISUAL FIELD - OU - BOTH EYES Routine 06/05/2024 3:39 PM COOLING TOWER OPERATOR Primary open angle glaucoma (POAG) of both eyes, severe stage XR SPINE CERVICAL 2 OR 3 VIEWS Schedule Routine, Read Routine (OP Routine) 06/02/2024 2:39 PM COOLING TOWER OPERATOR Osteoarthritis of cervical spine, unspecified spinal osteoarthritis complication status EGFR Routine 05/14/2024 4:57 AM COOLING TOWER OPERATOR BASIC METABOLIC PANEL Routine 05/14/2024 4:57 AM COOLING TOWER OPERATOR DIFFERENTIAL AUTO Routine 05/14/2024 4:5 7 AM COOLING TOWER OPERATOR CBC WITH AUTO DIFFERENTIAL Routine 05/14/2024 4:57 AM COOLING TOWER OPERATOR EGFR Routine 05/12/2024 4:45 AM COOLING TOWER OPERATOR BASIC METABOLIC PANEL Routine 05/12/2024 4:45 AM COOLING TOWER OPERATOR DIFFERENTIAL AUTO Routine 05/12/2024 4:4 5 AM COOLING TOWER OPERATOR CBC WITH AUTO DIFFERENTIAL Routine 05/12/2024 4:45 AM COOLING TOWER OPERATOR INFLUENZA A/B, RSV, AND COVID-19 PCR STAT 05/09/2024 11:20 AM COOLING TOWER OPERATOR DIFFERENTIAL AUTO Routine 05/06/2024 4:5 7 AM COOLING TOWER OPERATOR CBC WITH AUTO DIFFERENTIAL Routine 05/06/2024 4:57 AM COOLING TOWER OPERATOR EGFR Routine 05/05/2024 5:05 AM COOLING TOWER OPERATOR BASIC METABOLIC PANEL Routine 05/05/2024 5:05 AM COOLING TOWER OPERATOR DIFFERENTIAL AUTO Routine 05/05/2024 5:0 5 AM COOLING TOWER OPERATOR CBC WITH AUTO DIFFERENTIAL Routine 05/05/2024 5:05 AM COOLING TOWER OPERATOR CT LUNG CANCER SCREENING Schedule Routine, Read Routine (OP Routine) 03/11/2024 1:07 PM COOLING TOWER OPERATOR Personal history of nicotine dependence HEPATITIS PANEL, [...] the lower cervical spine. Electronically signed by: MD Kajal Aggarwal 07/17/2024 3:20 PM CDT EXAMINATION: XR SPINE [...] spine. Electronically signed by: Levi Hardy MD us Heidi Fay MD IMG XR PROCEDURES Final Resul t * Lorenzo Visual Field - OU - Both Eyes (06/05/2024 3:39 PM COOLING TOWER OPERATOR) Pattern Deviation OD 7.57 dB CONTINUUM Mean Deviation OD -9.74 dB CONTINUUM Anatomical Region Laterality Modality Head Visual Field Narrative 06/05/2024 3:39 PM COOLING TOWER OPERATOR Right Eye Fixation was borderline. Cooperation was good. Reliability was good. Foveal threshold was normal. Mean Deviation was -9.74 dB. Pattern Deviation was 7.57 dB. Notes OD: superior and inferior nasal arcuates OS: dense superior altitudinal defect, inferior arcuate us Linda Nguyen MD OPHTH VISUAL FIELD Final Result * XR Spine Cervical 2 or 3 Views (06/02/2024 2:39 PM COOLING TOWER OPERATOR) Anatomical Region Laterality Modality Spine N/A Computed Radiogr aphy 06/02/2024 2:46 PM COOLING TOWER OPERATOR Impressions 06/02/2024 2:46 PM COOLING TOWER OPERATOR 1. Drain removal following C3 laminectomy and C4-C6 laminoplasties. Electronically signed by: Ghassan Benitez M.D. Narrative 06/02/2024 2:46 PM COOLING TOWER OPERATOR EXAMINATION: XR SPINE CERVICAL 2 OR 3 [...] laminoplasties. Electronically signed by: Ghassan Benitez M.D. us Heidi Fay MD IMG XR PROCEDURES Final Resul t * eGFR (05/14/2024 4:57 AM COOLING TOWER OPERATOR) eGFR >90 >=60 mL/min/1. 73 m2 [facility] [...] was last reviewed 2021. Testing performed by: [facility], [address] [place] [address]., [address] Blood 05/14/2024 4:57 AM COOLING TOWER OPERATOR 05/14/2024 8:52 AM COOLING TOWER OPERATOR us Notinfile Unknown LAB BLOOD ORDERABLES Final Res ult [facility] [address] [facility] Department [place] [address] * Differential, auto (05/14/2024 4:57 AM COOLING TOWER OPERATOR) Neutrophil abs 6.2 1.5 - 6.5 K/cumm [facility] Comment:Testing performed by : [facility], [address] [place] [address], [place]., [address] Imm gran abs 0.0 0.0 - 0.1 K/cumm [facility] Comment:Testing performed by : [facility], [address] [place] [address], [place]., [address] Lymphocyte abs 1.4 0.8 - 3.3 K/cumm [facility] Comment:Testing performed by : [address], [place]., [address] Monocyte abs 0.8 0.2 - 0.8 K/cumm [facility] Comment:Testing performed by : [address], [place]., [address] Eosinophil abs 0.1 0.0 - 0.5 K/cumm [facility] Comment:Testing performed by : [address] [address] Basophil abs 0.1 0.0 - 0.1 K/cumm [facility] Comment:Testing performed by : [address] [address] Neutrophil pct 71.4 % [facility] Comment: Interpretive Data Percent cell count reference ranges are not reported, since discordance with absolute values may lead to misinterpretation of CBC data. Current Interpretive Data was last revised on 2017. Testing performed by: [address] [address] Imm gran pct 0.5 % [facility] Comment: Interpretive Data Percent cell count reference ranges are not reported, since discordance with absolute values may lead to misinterpretation of CBC data. Current Interpretive Data was last revised on 2017. Testing performed by: [address] [address] Lymphocyte pct 16.4 % [facility] Comment: Interpretive Data Percent cell count reference ranges are not reported, since discordance with absolute values may lead to misinterpretation of CBC data. Current Interpretive Data was last revised on 2017. Testing performed by: [address] [address] Monocyte pct 9.5 % [facility] Comment: Interpretive Data Percent cell count reference ranges are not reported, since discordance with absolute values may lead to misinterpretation of CBC data. Current Interpretive Data was last revised on 2017. Testing performed by: [address] [address] Eosinophil pct 1.5 % [facility] Comment: Interpretive Data Percent cell count reference ranges are not reported, since discordance with absolute values may lead to misinterpretation of CBC data. Current Interpretive Data was last revised on 2017. Testing performed by: [address] [address] Basophil pct 0.7 % [facility] Comment: Interpretive Data Percent cell count reference ranges are not reported, since discordance with absolute values may lead to misinterpretation of CBC data. Current Interpretive Data was last revised on 2017. Testing performed by: [address] [address] Blood 05/14/2024 4:57 AM COOLING TOWER OPERATOR 05/14/2024 8:52 AM COOLING TOWER OPERATOR us Notinfile Unknown LAB BLOOD ORDERABLES Final Res ult [facility] Department of Laboratories [place], [place] [id number] * (ABNORMAL) CBC with auto differential (05/14/2024 4:57 AM COOLING TOWER OPERATOR) WBC 8.7 3.8 - 9.9 K/cumm [facility] Comment:Testing performed by : [address] [address] Hgb 12.6(L) 13.0 - 17.5 g/dL [facility] Comment:Testing performed by : [address] [address] Hct 37.1(L) 38.9 - 50.3 % [facility] Comment:Testing performed by : [address] [address] Plt 221 150 - 400 K/cumm [facility] Comment:Testing performed by : [address] [address] MPV 10.8 9.1 - 12.3 fL [facility] Comment:Testing performed by : [address] [address] RBC 4.09(L) 4.30 - 5.80 M/cumm [facility] Comment:Testing performed by : [address] [address] MCV 90.7 81.3 - 96.4 fL [facility] Comment:Testing performed by : [address] [address] MCH 30.8 27.1 - 33.3 pg [facility] Comment:Testing performed by : [address] [address] MCHC 34.0 32.3 - 35.7 g/dL [facility] Comment:Testing performed by : [address] [address] RDW CV 13.3 11.1 - 14.9 % [facility] Comment:Testing performed by : [address] [address] RDW SD 44.0 35.7 - 48.1 fL [facility] Comment:Testing performed by : [address] [address] NRBC abs 0.00 0.00 - 0.01 K/cumm [facility] Comment:Testing performed by : [address] [address] Blood 05/14/2024 4:57 AM COOLING TOWER OPERATOR 05/14/2024 8:52 AM COOLING TOWER OPERATOR us Notinfile Unknown LAB BLOOD ORDERABLES Final Res ult [facility] [address] [facility] Department [place] [address] * (ABNORMAL) Basic metabolic panel (05/14/2024 4:57 AM COOLING TOWER OPERATOR) Sodium 140 135 - 145 mmol/L [facility] Comment:Testing performed by : [address] [address] Potassium, pl 4.3 3.3 - 4.9 mmol/L [facility] Comment:Testing performed by : [address] [address] Chloride 104 97 - 110 mmol/L [facility] Comment:Testing performed by : [address] [address] CO2 25 22 - 32 mmol/L [facility] Comment:Testing performed by : [address] [address] Anion gap 11 2 - 15 mmol/L [facility] Comment:Testing performed by : [address], [place]., [address] BUN 16 6 - 25 mg/dL [facility] Comment:Testing performed by : [address] [address] Creatinine 0.60(L) 0.80 - 1.30 mg/dL [facility] Comment:Testing performed by : [address] [address] Glucose 125 70 - 199 mg/dL [facility] Comment: Interpretive Data Fasting glucose >/= 126 [...] was last revised 2022. Testing performed by: [address] [address] Calcium 9.2 8.5 - 10.3 mg/dL [facility] Comment:Testing performed by : [address] [address] Blood 05/14/2024 4:57 AM COOLING TOWER OPERATOR 05/14/2024 8:52 AM COOLING TOWER OPERATOR us Notinfile Unknown LAB BLOOD ORDERABLES Final Res ult [facility] [address] [facility] [place] [address] * eGFR (05/12/2024 4:45 AM COOLING TOWER OPERATOR) eGFR >90 >=60 mL/min/1. 73 m2 [facility] Comment: Interpretive Data Reference Interval Normal >/= [...] was last reviewed 2021. Testing performed by: [address] [address] Blood 05/12/2024 4:45 AM COOLING TOWER OPERATOR 05/12/2024 9:19 AM COOLING TOWER OPERATOR us Notinfile Unknown LAB BLOOD ORDERABLES Final Res ult Performing Organization Address [facility] de Phone Number [facility] [address] [facility] Department [place] [address] * (ABNORMAL) Differential, auto (05/12/2024 4:45 AM COOLING TOWER OPERATOR) Neutrophil abs 7.5(H) 1.5 - 6.5 K/cumm [facility] Comment:Testing performed by : [address] [address] Imm gran abs 0.0 0.0 - 0.1 K/cumm [facility] Comment:Testing performed by : [address] [address] Lymphocyte abs 1.3 0.8 - 3.3 K/cumm [facility] Comment:Testing performed by : [address] [address] Monocyte abs 1.0(H) 0.2 - 0.8 K/cumm [facility] Comment:Testing performed by : [address] [address] Eosinophil abs 0.1 0.0 - 0.5 K/cumm [facility] Comment:Testing performed by : [address], [place]., [address] Basophil abs 0.1 0.0 - 0.1 K/cumm [facility] Comment:Testing performed by : [address] [address] Neutrophil pct 75.5 % [facility] Comment: Interpretive Data Percent cell count reference ranges are not reported, since discordance with absolute values may lead to misinterpretation of CBC data. Current Interpretive Data was last revised on 2017. Testing performed by: [address] [address] Imm gran pct 0.4 % [facility] Comment: Interpretive Data Percent cell count reference ranges are not reported, since discordance with absolute values may lead to misinterpretation of CBC data. Current Interpretive Data was last revised on 2017. Testing performed by: [address] [address] Lymphocyte pct 12.7 % [facility] Comment: Interpretive Data Percent cell count reference ranges are not reported, since discordance with absolute values may lead to misinterpretation of CBC data. Current Interpretive Data was last revised on 2017. Testing performed by: [address] [address] Monocyte pct 9.8 % [facility] Comment: Interpretive Data Percent cell count reference ranges are not reported, since discordance with absolute values may lead to misinterpretation of CBC data. Current Interpretive Data was last revised on 2017. Testing performed by: [address] [address] Eosinophil pct 1.1 % [facility] Comment: Interpretive Data Percent cell count reference ranges are not reported, since discordance with absolute values may lead to misinterpretation of CBC data. Current Interpretive Data was last revised on 2017. Testing performed by: [address] [address] Basophil pct 0.5 % [facility] Comment: Interpretive Data Percent cell count reference ranges are not reported, since discordance with absolute values may lead to misinterpretation of CBC data. Current Interpretive Data was last revised on 2017. Testing performed by: [address] [address] Blood 05/12/2024 4:45 AM COOLING TOWER OPERATOR 05/12/2024 9:19 AM COOLING TOWER OPERATOR us Notinfile Unknown LAB BLOOD ORDERABLES Final Res ult [facility] [address] [facility] Department [place] [address] * (ABNORMAL) CBC with auto differential (05/12/2024 4:45 AM COOLING TOWER OPERATOR) WBC 10.0(H) 3.8 - 9.9 K/cumm [facility] Comment:Testing performed by : [address] [address] Hgb 12.7(L) 13.0 - 17.5 g/dL [facility] Comment:Testing performed by : [address] [address] Hct 37.3(L) 38.9 - 50.3 % [facility] Comment:Testing performed by : [address] [address] Plt 217 150 - 400 K/cumm [facility] Comment:Testing performed by : [address] [address] MPV 11.0 9.1 - 12.3 fL [facility] Comment:Testing performed by : [address] [address] RBC 4.10(L) 4.30 - 5.80 M/cumm [facility] Comment:Testing performed by : [address] [address] MCV 91.0 81.3 - 96.4 fL [facility] Comment:Testing performed by : [address] [address] MCH 31.0 27.1 - 33.3 pg [facility] Comment:Testing performed by : [address] [address] MCHC 34.0 32.3 - 35.7 g/dL [facility] Comment:Testing performed by : [address] [address] RDW CV 13.7 11.1 - 14.9 % [facility] Comment:Testing performed by : [address] [address] RDW SD 45.6 35.7 - 48.1 fL [facility] Comment:Testing performed by : [address] [address] NRBC abs 0.00 0.00 - 0.01 K/cumm [facility] Comment:Testing performed by : [address] [address] Blood 05/12/2024 4:45 AM COOLING TOWER OPERATOR 05/12/2024 9:19 AM COOLING TOWER OPERATOR us Notinfile Unknown LAB BLOOD ORDERABLES Final Res ult [facility] [address] [facility] Department of Laboratories [place], [place] [id number] * (ABNORMAL) Basic metabolic panel (05/12/2024 4:45 AM COOLING TOWER OPERATOR) Sodium 138 135 - 145 mmol/L [facility] Comment:Testing performed by : [address] [address] Potassium, pl 3.9 3.3 - 4.9 mmol/L [facility] Comment:Testing performed by : [address] [address] Chloride 102 97 - 110 mmol/L [facility] Comment:Testing performed by : [address] [address] CO2 26 22 - 32 mmol/L [facility] Comment:Testing performed by : [address] [address] Anion gap 10 2 - 15 mmol/L [facility] Comment:Testing performed by : [address] [address] BUN 17 6 - 25 mg/dL [facility] Comment:Testing performed by : [address] [address] Creatinine 0.60(L) 0.80 - 1.30 mg/dL [facility] Comment:Testing performed by : [address] [address] Glucose 153 70 - 199 mg/dL FRANSISCA [...] was last revised 2022. Testing performed by: [address] [address] Calcium 9.2 8.5 - 10.3 mg/dL FRANSISCA Comment:Testing performed by : [address] [address] Blood 05/12/2024 4:45 AM COOLING TOWER OPERATOR 05/12/2024 9:19 AM COOLING TOWER OPERATOR us Notinfile Unknown LAB BLOOD ORDERABLES Final Res ult ARIANAARTEMIO [address] [facility] Department [place] [address] * Influenza A/B, RSV, and COVID-19 PCR Nasopharyngeal (05/09/2024 11:20 AM COOLING TOWER OPERATOR) [facility] COVID-19 RNA Negative Negative FRANSISCA Comment:Testing performed by : [address] [address] Influenza A RNA Negative Negative FRANSISCA Comment:Testing performed by : [address] [address] Influenza B RNA Negative Negative FRANSISCA Comment:Testing performed by : [address] [address] RSV RNA Negative Negative FRANSISCA Comment: Interpretive data: Testing performed by [facility]. This test is performed using the [employer] Xpert Xpress CoV-2/Flu/RSV plus assay. This is a multiplex, real-time reverse transcriptase PCR assay intended for the qualitative detection of nucleic acid from SARS-CoV-2, influenza A, influenza B, and respiratory syncytial virus. This assay has been cleared by the [place] Food and Drug administration. The performance characteristics have been verified by the [facility]. Results must be considered in the clinical context, and a negative result does not rule out infection. Interpretive Data last revised 2023 Testing performed by: [address] [address] Nasopharyngeal 05/09/2024 11 :20 AM COOLING TOWER OPERATOR 05/09/2024 12:30 PM COOLING TOWER OPERATOR us Notinfile Unknown LAB MICROBIOLOGY - GENERAL ORD ERABLES Final Result FRANSISCA [address] [facility] Department [place] [address] * (ABNORMAL) Differential, auto (05/06/2024 4:57 AM COOLING TOWER OPERATOR) [facility] Neutrophil abs 6.6(H) 1.5 - 6.5 K/cumm FRANSISCA Comment:Testing performed by : [address] [address] Imm gran abs 0.1 0.0 - 0.1 K/cumm FRANSISCA Comment:Testing performed by : [address] [place]., [address] Lymphocyte abs 1.6 0.8 - 3.3 K/cumm CERNER Comment:Testing performed by : [address] [address] Monocyte abs 0.6 0.2 - 0.8 K/cumm CERNER Comment:Testing performed by : [address] [address] Eosinophil abs 0.1 0.0 - 0.5 K/cumm [facility]:Testing performed by : [address] [address] Basophil abs 0.1 0.0 - 0.1 K/cumm [facility] Comment:Testing performed by : [address] [address] Neutrophil pct 72.1 % [facility] Comment: Interpretive Data Percent cell count reference ranges are not reported, since discordance with absolute values may lead to misinterpretation of CBC data. Current Interpretive Data was last revised on 2017. Testing performed by: [address] [address] Imm gran pct 1.0 % CERNER Comment: Interpretive Data Percent cell count reference ranges are not reported, since discordance with absolute values may lead to misinterpretation of CBC data. Current Interpretive Data was last revised on 2017. Testing performed by: [address] [address] Lymphocyte pct 17.9 % CERNER Comment: Interpretive Data Percent cell count reference ranges are not reported, since discordance with absolute values may lead to misinterpretation of CBC data. Current Interpretive Data was last revised on 2017. Testing performed by: [address] [address] Monocyte pct 7.0 % CERNER Comment: Interpretive Data Percent cell count reference ranges are not reported, since discordance with absolute values may lead to misinterpretation of CBC data. Current Interpretive Data was last revised on 2017. Testing performed by: [address] [address] Eosinophil pct 1.5 % CERNER Comment: Interpretive Data Percent cell count reference ranges are not reported, since discordance with absolute values may lead to misinterpretation of CBC data. Current Interpretive Data was last revised on 2017. Testing performed by: [address] [address] Basophil pct 0.5 % [facility] [place] Comment: Interpretive Data Percent cell count reference ranges are not reported, since discordance with absolute values may lead to misinterpretation of CBC data. Current Interpretive Data was last revised on 2017. Testing performed by: [address] [address] Blood 05/06/2024 4:57 AM COOLING TOWER OPERATOR 05/06/2024 8:25 AM COOLING TOWER OPERATOR us Notinfile Unknown LAB BLOOD ORDERABLES Final Res ult FRANSISCA [address] [facility] Department [place] [address] * (ABNORMAL) CBC with auto differential (05/06/2024 4:57 AM COOLING TOWER OPERATOR) WBC 9.2 3.8 - 9.9 K/cumm [facility] [place] Comment:Testing performed by : [address] [address] Hgb 12.1(L) 13.0 - 17.5 g/dL [facility] [place] Comment:Testing performed by : [address] [address] Hct 35.4(L) 38.9 - 50.3 % [facility] [place] Comment:Testing performed by : [address] [address] Plt 279 150 - 400 K/cumm [facility] [place] Comment:Testing performed by : [address] [address] MPV 10.2 9.1 - 12.3 fL [facility] [place] Comment:Testing performed by : [address] [address] RBC 3.91(L) 4.30 - 5.80 M/cumm [facility] [place] Comment:Testing performed by : [facility], [address] [place] [address]., [address] MCV 90.5 81.3 - 96.4 fL [facility] [place] Comment:Testing performed by : [address] [address] MCH 30.9 27.1 - 33.3 pg [facility] [place] Comment:Testing performed by : [address] [address] MCHC 34.2 32.3 - 35.7 g/dL [facility] [place] Comment:Testing performed by : [address] [address] RDW CV 13.3 11.1 - 14.9 % [facility] [place] Comment:Testing performed by : [address] [address] RDW SD 43.6 35.7 - 48.1 fL FRANSISCA Comment:Testing performed by : [address] [address] NRBC abs 0.00 0.00 - 0.01 K/cumm FRANSISCA Comment:Testing performed by : [address] [address] Blood 05/06/2024 4:57 AM COOLING TOWER OPERATOR 05/06/2024 8:25 AM COOLING TOWER OPERATOR us Notinfile Unknown LAB BLOOD ORDERABLES Final Res ult [facility] [place] [address] [facility] Department of Laboratories [place], [place] [id number] * eGFR (05/05/2024 5:05 AM COOLING TOWER OPERATOR) eGFR >90 >=60 mL/min/1. 73 m2 FRANSISCA [...] was last reviewed 2021. Testing performed by: [address] [address] Blood 05/05/2024 5:05 AM COOLING TOWER OPERATOR 05/05/2024 8:24 AM COOLING TOWER OPERATOR us Notinfile Unknown LAB BLOOD ORDERABLES Final Res ult FRANSISCA [facility] Department [place] [address] * (ABNORMAL) Differential, auto (05/05/2024 5:05 AM COOLING TOWER OPERATOR) Neutrophil abs 8.1(H) 1.5 - 6.5 K/cumm FRANSISCA Comment:Testing performed by : [address] [address] Imm gran abs 0.1 0.0 - 0.1 K/cumm FRANSISCA Comment:Testing performed by : [address] [address] Lymphocyte abs 1.5 0.8 - 3.3 K/cumm FRANSISCA Comment:Testing performed by : [address] [address] Monocyte abs 0.7 0.2 - 0.8 K/cumm FRANSISCA Comment:Testing performed by : [address] [address] Eosinophil abs 0.1 0.0 - 0.5 K/cumm FRANSISCA Comment:Testing performed by : [address] [address] Basophil abs 0.0 0.0 - 0.1 K/cumm FRANSISCA Comment:Testing performed by : [address] [address] Neutrophil pct 76.9 % FRANSISCA Comment: Interpretive Data Percent cell count reference ranges are not reported, since discordance with absolute values may lead to misinterpretation of CBC data. Current Interpretive Data was last revised on 2017. Testing performed by: [address] [address] Imm gran pct 1.0 % FRANSISCA Comment: Interpretive Data Percent cell count reference ranges are not reported, since discordance with absolute values may lead to misinterpretation of CBC data. Current Interpretive Data was last revised on 2017. Testing performed by: [address] [address] Lymphocyte pct 13.9 % [facility] Comment: Interpretive Data Percent cell count reference ranges are not reported, since discordance with absolute values may lead to misinterpretation of CBC data. Current Interpretive Data was last revised on 2017. Testing performed by: [address] [address] Monocyte pct 6.6 % [facility] Comment: Interpretive Data Percent cell count reference ranges are not reported, since discordance with absolute values may lead to misinterpretation of CBC data. Current Interpretive Data was last revised on 2017. Testing performed by: [address] [address] Eosinophil pct 1.2 % FRANSISCA Comment: Interpretive Data Percent cell count reference ranges are not reported, since discordance with absolute values may lead to misinterpretation of CBC data. Current Interpretive Data was last revised on 2017. Testing performed by: [address] [address] Basophil pct 0.4 % [facility] Comment: Interpretive Data Percent cell count reference ranges are not reported, since discordance with absolute values may lead to misinterpretation of CBC data. Current Interpretive Data was last revised on 2017. Testing performed by: [address] [address] Blood 05/05/2024 5:05 AM COOLING TOWER OPERATOR 05/05/2024 8:24 AM COOLING TOWER OPERATOR us Notinfile Unknown LAB BLOOD ORDERABLES Final Res ult [facility] [place] [address] [facility] Department [place] [address] * (ABNORMAL) CBC with auto differential (05/05/2024 5:05 AM COOLING TOWER OPERATOR) WBC 10.6(H) 3.8 - 9.9 K/cumm [facility] [place] Comment:Testing performed by : [address] [address] Hgb 12.1(L) 13.0 - 17.5 g/dL [facility] [place] Comment:Testing performed by : [address] [address] Hct 35.2(L) 38.9 - 50.3 % [facility] [place] Comment:Testing performed by : [address] [address] Plt 291 150 - 400 K/cumm [facility] [place] Comment:Testing performed by : [address], [address] MPV 10.1 9.1 - 12.3 fL [facility] [place] Comment:Testing performed by : [address] [address] RBC 3.87(L) 4.30 - 5.80 M/cumm [facility] [place] Comment:Testing performed by : [address] [address] MCV 91.0 81.3 - 96.4 fL [facility] [place] Comment:Testing performed by : [address] [address] MCH 31.3 27.1 - 33.3 pg [facility] [place] Comment:Testing performed by : [address] [address] MCHC 34.4 32.3 - 35.7 g/dL [facility] [place] Comment:Testing performed by : [address] [address] RDW CV 13.3 11.1 - 14.9 % [facility] [place] Comment:Testing performed by : [address] [address] RDW SD 43.7 35.7 - 48.1 fL [facility] [place] Comment:Testing performed by : [address] [address] NRBC abs 0.00 0.00 - 0.01 K/cumm [facility] [place] Comment:Testing performed by : [address] [address] Blood 05/05/2024 5:05 AM COOLING TOWER OPERATOR 05/05/2024 8:24 AM COOLING TOWER OPERATOR us Notinfile Unknown LAB BLOOD ORDERABLES Final Res ult [facility] [place] [facility] Department [place] [address] * (ABNORMAL) Basic metabolic panel (05/05/2024 5:05 AM COOLING TOWER OPERATOR) Sodium 138 135 - 145 mmol/L [facility] [place] Comment:Testing performed by : [address] [address] Potassium, pl 4.1 3.3 - 4.9 mmol/L [facility] [place] Comment:Testing performed by : [address] [address] Chloride 104 97 - 110 mmol/L [facility] [place] Comment:Testing performed by : [address] [address] CO2 25 22 - 32 mmol/L [facility] [place] Comment:Testing performed by : [address] [address] Anion gap 9 2 - 15 mmol/L [facility] [place] Comment:Testing performed by : [address] [address] BUN 17 6 - 25 mg/dL [facility] [place] Comment:Testing performed by : [address] [address] Creatinine 0.70(L) 0.80 - 1.30 mg/dL [facility] [place] Comment:Testing performed by : [address] [address] Glucose 142 70 - 199 mg/dL [facility] [place] Comment: Interpretive Data Fasting glucose >/= 126 [...] was last revised 2022. Testing performed by: [address] [address] Calcium 9.2 8.5 - 10.3 mg/dL [facility] [place] Comment:Testing performed by : [address] [address] Blood 05/05/2024 5:05 AM COOLING TOWER OPERATOR 05/05/2024 8:24 AM COOLING TOWER OPERATOR us Notinfile Unknown LAB BLOOD ORDERABLES Final Res ult [facility]ISCA [place] [address] [facility] Department [place] [address] * CT Lung Cancer Screening (03/11/2024 1:07 PM COOLING TOWER OPERATOR) Anatomical Region Laterality Modality Chest N/A Computed Tomogra phy 03/11/2024 1:46 PM COOLING TOWER OPERATOR Impressions 03/11/2024 2:47 PM COOLING TOWER OPERATOR 1. LungRADS Category 2 (benign). Recommend Low [...] John Conte M.D. Narrative 03/11/2024 2:47 PM COOLING TOWER OPERATOR EXAMINATION: Lung cancer screening CT of the [...] by: John Conte M.D. Charlie Kan MD IM CT PROCEDURES Final Result * (ABNORMAL) Hepatitis [...] an active HCV infection. HCV RNA IU/mL [id number](H ) <15 IU/mL [facility] [...] the management of these patients (J Hepatol, 3059-4200, ). COMMENT [facility] HISTORICAL RESULTS Comment: The analytical performance characteristics of this assay have been determined by [employer]. The modifications have not been cleared or approved by the FDA. This assay has been validated pursuant to the CLIA regulations and is used for clinical purposes. This test was performed using the [employer]R)AmpliPrep/ [employer](R)TaqMan(R)HCV Test,v2.0. For more information on this test, go to: http://education.[employer]ient/faq/RFG16m9 (This link is being provided for informational/ educational purposes only.) 09/25/2016 4:15 PM CDT 09/27/2016 12:45 PM CDT Narrative [facility] HISTORICAL RESULTS - 09/27/2016 12:34 PM CDT 0 PERFORMING LAB: [facility] [address] [address] [id number] Abhinav Cruz D.O., MPH Historical Provider LAB MICROBIOLOGY - GENERA L ORDERABLES Final Result [facility] HISTORICAL RESULTS from Last 3 Months or Most Recently Relevant to Health Maintenance Insurance Advance Directives For more information, please contact: [phone] Documents on File Type Date Recorded Patient Construction Engineer Expl anation ADVANCE DIRECTIVE 03/24/2024 7:47 AM Susan r of [employer] Setter-Medical * Full Code (Latest Code Status on File) Date Activated Date Inactivated Comments 04/22/2024 5:16 AM 04/25/2024 5:38 PM * Full Code Date Activated Date Inactivated Comments 04/08/2024 9:42 PM 04/11/2024 6:32 PM * Full Code Date Activated Date Inactivated Comments 02/21/2024 12:46 AM 02/26/2024 6:04 PM Care Teams Pharmacognosy Teacher Relationship Specialty Start Date End Date Chani Beltran MD PhD [address] [facility] [place] [address] PCP - General 03/25/24 Heidi Fay MD [address] [place] [address] Consulting Physician Neurosurgery 04/10/24
--- OUTSIDE RECORDS SUMMARY | 2024-08-03 16:19 | XMS_ITS | Clinical Summary ---
Author Organization [facility] Address [address] [place] [address] Care Team Providers Care Setter Induction Heating Equipment Name Role Phone None, Provider MD Primary Care Provider Unavaila ble Allergies No known active allergies Medications celecoxib (CELEBREX) 200 MG capsule Take 1 capsule (200 mg total) by mouth daily. Active cyclobenzaprine (FLEXERIL) 5 MG tablet Take 1 tablet (5 mg total) by mouth 2 (two) times daily as needed. 12/13/2023 Active Active Problems Problem Noted Date Diagnosed Date Weakness 02/17/2024 Disc disease, degenerative, cervical 02/04/2024 Overview (02/17/2024): Last Assessment & Plan: Neurologic symptoms stable, neck pain slowly improving per patient. Has appt with neurosurgery tmrw Arthritis 12/14/2023 Overview (02/17/2024): Arthritis of the hands, chronic. Patient has taken daily ibuprofen for the pain. Would lke to try celebrex as it as helped in the past. Last Assessment & Plan: - ordered celebrex Social History Tobacco Use Types Packs/Day Years Used Date Smoking Tobacco: Some Days Cigarettes Smokeless Tobacco: Never Tobacco Cessation:Ready to Q uit: Not Asked; Counseling Given: Not Answered [facility] Utilities Answer Date Recorded In the past 12 months has e electric, gas, oil, or water company threatened to shut off services in your home? No 02/17/2024 Humiliation, Afraid, Rape, and Kick questionnair e Answer Date Recorded Within the last year, have y ou been afraid of your partner or ex-partner? No 02/17/2024 Within the last year, have y ou been humiliated or emotionally abused in other ways by your partner or ex-partner? No Within the last year, have y ou been kicked, hit, slapped, or otherwise physically hurt by your partner or ex-partner? No 02/17/2024 Within the last year, have y ou been raped or forced to have any kind of sexual activity by your partner or ex-partner? No 02/17/2024 Social Connection and Isolation Panel [NHANES] A nswer Date Recorded Frequency of Communication with Friends and Fami ly Not on file 02/17/2024 Frequency of Social Gatherings with Friends and Family Not on file 02/17/2024 How often do you attend nondenominational or gnosticist serv ices? Never 02/17/2024 Do you belong to any clubs o r organizations such as nondenominational groups, unions, fraternal or athletic groups, or school groups? No 02/17/2024 Attends Club or Organization Meetings Not on joão e 02/17/2024 Are you , , di vorced, , never , or living with a partner? 02/17/2024 AUDIT-C Answer Date Recorded Q1: How often do you have a drink containing alc ohol? Monthly or less 02/17/2024 Q2: How many drinks containi ng alcohol do you have on a typical day when you are drinking? 1 or 2 02/17/2024 Q3: How often do you have si x or more drinks on one occasion? Less than monthly 02/17/2024 Overall Financial Resource Strain (CARDIA) Answe r Date Recorded How hard is it for you to pa y for the very basics like food, housing, medical care, and heating? Not very hard 02/17/2024 Hunger Vital Sign Answer Date Recorded Within the past 12 months, y ou worried that your food would run out before you got the money to buy more. Never true 02/17/20 24 Within the past 12 months, t he food you bought just didn't last and you didn't have money to get more. Never true 02/17/2024 PRAPARE - Transportation Answer Date Re corded In the past 12 months, has l ack of transportation kept you from medical appointments or from getting medications? No 02/04 In the past 12 months, has l ack of transportation kept you from meetings, work, or from getting things needed for daily living? No 02/17/2024 Housing Stability Vital Sign Answer Denys e Recorded In the last 12 months, was t here a time when you were not able to pay the mortgage or rent on time? No 02/17/2024 In the past 12 months, how m any times have you moved where you were living? 15 02/17/2024 At any time in the past 12 m [facility], were you homeless or living in a senior living (including now)? Yes 02/17/2024 Sex and Gender Information Value Date Recorded Sex Assigned at Male 02/16/2024 10:44 PM CDT Legal Sex Male 2:27 PM CDT Gender Identity Male 02/16/2024 10:44 PM CDT Sexual Orientation Straight 02/16/2024 10 :44 PM CDT Last Filed Vital Signs Vital Sign Reading Time Taken Comments Blood Pressure 113/72 02/20/2024 11:53 PM CDT Pulse 76 02/20/2024 11:53 PM CDT Temperature 37 C (98.6 F) 02/20/2024 11:53 PM CDT Respiratory Rate 16 02/20/2024 11:53 PM CDT Oxygen Saturation 100% 02/20/2024 11:53 PM CDT Inhaled Oxygen Concentration - - Weight 82.3 kg (181 lb 7 oz) 02/20/2024 6:24 AM CDT Height 177.8 cm (5' 10 ) 02/16/2024 10:45 PM CDT Body Mass Index 26.03 02/16/2024 10:45 PM CDT Plan of Treatment Health Maintenance Due Date Last Done Comments Colorectal Cancer Screening Colonoscopy (10 Years) 1959 Annual Physical 12/11/1962 Pneumococcal Vaccine: Pediat rics (0 to 5 Years) and At-Risk Patients (6 to 64 Years) (1 of 2 - PCV) 12/11/1965 Hepatitis C 12/11/1977 DTaP, Tdap and Td Vaccines ( 1 - Tdap) 12/11/1978 Zoster Vaccines (1 of 2) 12/11/2009 COVID-19 Vaccine (2023-2 5 season) 2024 Influenza Adult (#1) 2024 RSV Immunization or 60+ Years (1 - 1-dose 75+ series) 12/11/2034 Meningococcal B Vaccine Aged Out No l onger eligible based on patient's age to complete this topic Meningococcal Vaccine Aged Out No joey berta eligible based on patient's age to complete this topic RSV Immunizations Under 20 Months Aged Out No longer eligible based on patient's age to complete this topic Goals Goal Patient Goal Type Associated Problems Recent Progress Patient-Stated? Author Health - patient able to perform ADLs independently Lifestyle No Janette Medrano, RN Insurance T Advance Directives * Full Code (Latest Code Status on File) Date Activated Date Inactivated Comments 02/17/2024 3:25 AM 02/21/2024 2:12 AM Care Teams Setter Induction Heating Equipment Relationship Specialty Start Date End Date None, Provider, PCP - General UNKNOWN PHYSICIAN SPECIALTY 02/16/24
--- OUTSIDE RECORDS SUMMARY | 2024-08-03 16:19 | XMS_ITS | Encounter Summary ---
Author Organization [facility] Healthcare Address [address] [place] [address] Care Team Providers Care Electronic Technologist Name Role Phone Chani Beltran MD PhD Primary Care Provi halle Chani Beltran MD PhD Primary Care Provi halle Heidi Fay MD Unavailable [phone] Encounter Details Date Type Department Care Team (Late st Contact Info) Description 02/14/2024 Telephone [facility] [address] [place] [address] Breonna Rose, RT Social History Tobacco Use Types Packs/Day Years Used Date Smoking Tobacco: Former Cigarettes 1.9 53.2 S tarted: 1972 Cigars AUDIT-C Answer Date Recorded Q1: How often do you have a drink containing alc ohol? Monthly or less 02/05/2024 Q2: How many drinks containi ng alcohol do you have on a typical day when you are drinking? 1 or 2 02/05/2024 Q3: How often do you have si x or more drinks on one occasion? Never 02/05/2024 Hunger Vital Sign Answer Date Recorded Within the past 12 months, y ou worried that your food would run out before you got the money to buy more. Never true 02/05/20 24 Within the past 12 months, t he food you bought just didn't last and you didn't have money to get more. Never true 02/05/2024 Personal Safety Answer Date Recorded Have you ever been in or are you currently in a harmful physical or emotional relationship or is someone making you feel afraid or unsafe? Denies 11/27/2023 Sex and Gender Information Value Date Recorded Sex Assigned at Not on file Legal Sex Male 9:06 PM DICTAPHONE OPERATOR Gender Identity Not on file Sexual Orientation Not on file documented as of this encounter Miscellaneous Notes * Telephone Encounter - Breonna Rose, RT - 02/14/2024 4:24 PM CDT documented in this encounter Plan of Treatment Scheduled Procedures Name Priority Associated Diagnoses Date/Ti me COLONOSCOPY Open Access Healthcare maintenance documented as of this encounter Visit Diagnoses Not on filedocumented [...] COVID: Suspected 04/08/2024 04/08/2024 04/08/2024 3:31 PM DICTAPHONE OPERATOR Ring Surveillance Comment:Discharge swab not collected This [...] documented as of this encounter Care Teams Electronic Technologist Relationship Specialty Start Date End Date Chani Beltran MD PhD [address] [facility] [id number] [place] [address] PCP - General 12/18/23 03/24/24 Chani Beltran MD PhD [address] [facility] [place] [address] PCP - General 03/25/24 Heidi Fay MD [address] [place] [address] Consulting Physician Neurosurgery 04/10/24 documented as of this encounter
[2024-08-03 16:36] VITALS: BP 109/88; PULSE 110; RESP 18; TEMP 37.4; O2SAT 98
[2024-08-03 17:06] VITALS: BP 125/79; PULSE 108; RESP 16; O2SAT 99
--- NOTE | 2024-08-03 17:16 | PC.NURSE ---
Pt sister requesting to speak with care coordination regarding nursing homes, care coordination aware
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
--- OUTSIDE RECORDS SUMMARY | 2024-08-03 17:48 | XMS_ITS | Encounter Summary ---
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 Gender Identity Not on file Sexual Orientation [...] COVID: Suspected 04/08/2024 04/08/2024 04/08/2024 3:31 PM GEODETIC COMPUTATOR Ring Surveillance Comment:Discharge swab not collected This [...] documented as of this encounter Care Teams Clicker Operator Relationship Specialty Start Date End Date Chani Beltran MD PhD One [facility] [id number] [place] [address] PCP - General 12/18/23 03/24/24 Chani Beltran MD PhD [address] [facility] [address] [address] PCP - General 03/25/24 Heidi Fay MD [address] [place] [address] Consulting Physician Neurosurgery 04/10/24 documented as of this encounter
--- OUTSIDE RECORDS SUMMARY | 2024-08-03 17:48 | XMS_ITS | Encounter Summary ---
Author Organization [facility] Facility Care Team Providers Care Bilingual Operator Name Role Phone No, Physician Primary Care Provider [phone] Chani Beltran MD PhD Primary Care Provi halle Chani Beltran MD PhD Primary Care Provi halle Heidi Fay MD Unavailable [phone] Encounter Details Date Type Department Care Team (Latest Contact Info) Description 09/20/2016 Orders Only [facility] ProviderAna MD [address] [place] [id number] Social History Tobacco Use Types Packs/Day Years Used Date Smoking Tobacco: Never Assessed Sex and Gender Information Value Date Recorded Sex Assigned at Not on file 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 Historical Provider [facility] [place] [facility] Final Result documented in this encounter [...] COVID: Suspected 04/08/2024 04/08/2024 04/08/2024 3:31 PM AUDIO PRODUCTION INSTRUCTOR Ring Surveillance Comment:Discharge swab not collected This [...] documented as of this encounter Care Teams Bilingual Operator Relationship Specialty Start Date End Date No, Physician PCP - General 11/27/23 12/17/23 Chani Beltran MD PhD One [facility] [id number] [place] [address] PCP - General 12/18/23 03/24/24 Chani Beltran MD PhD [address] [facility] [address] PCP - General 03/25/24 Heidi Fay MD [address] [place] [address] Consulting Physician Neurosurgery 04/10/24 documented as of this encounter
--- OUTSIDE RECORDS SUMMARY | 2024-08-03 17:48 | XMS_ITS | Referral Summary ---
Author Organization [facility] Address [address] [place] [address] Care Team Providers Care Assorter Name Role Phone Chani Beltran MD PhD Primary Care Provi halle Heidi Fay MD Unavailable [phone] Encounters Date Type Department Care Team Description 07/21/2024 Orders Only [facility] Neurosurgery [address] [place] [address] Medical Office Building [address] [place] [phone] Heidi Fay MD Osteoarthritis of cervical spine, unspecified spinal osteoarthritis complication status (Primary Dx); History of spinal cord injury 07/17/2024 2:15 PM CDT - 07/17/2024 11:59 PM CDT Hospital Encounter [facility] [address] [place] [address] [address] [place] [phone] Osteoarthritis of cervical spine, unspecified spinal osteoarthritis complication status Discharge Disposition: Discharge to home or self care 07/17/2024 2:45 PM CDT Office Visit [facility] [address] [place] [address] Office Building [address] [place] [phone] Heidi Fay MD Osteoarthritis of cervical spine, unspecified spinal osteoarthritis complication status 07/10/2024 Orders Only [facility] [address] [place] [address] Office Building [address] [place] [phone] Heidi Fay MD Osteoarthritis of cervical spine, unspecified spinal osteoarthritis complication status (Primary Dx) 07/09/[address] [facility] Home Care Services [address] [place] [address] Cece Boyce RN 07/09/2024 Orders Only [facility] [address] [place] [address] Heidi Fay MD Osteoarthritis of cervical spine, unspecified spinal osteoarthritis complication status (Primary Dx) 06/05/2024 2:30 PM NETWORK SUPPORT ANALYST Office Visit [facility] Ophthalmology [address] [place] [address] 1st [place] [address] Primary open angle glaucoma (POAG) of both eyes, severe stage (Primary Dx) 06/02/2024 Orders Only [facility] Neurosurgery [address] [place] [address] 4 [address] [place] [phone] Heidi Fay MD Osteoarthritis of cervical spine, unspecified spinal osteoarthritis complication status (Primary Dx) 06/02/2024 2:27 PM NETWORK SUPPORT ANALYST - 06/02/2024 11:59 PM NETWORK SUPPORT ANALYST Hospital Encounter [facility] [address] [facility] [address] [place] [phone] Osteoarthritis of cervical spine, unspecified spinal osteoarthritis complication status Discharge Disposition: Discharge to home or self care 06/02/2024 2:45 PM NETWORK SUPPORT ANALYST Office Visit [facility] [address] [place] [address] 4 [address] [place] [address] Heidi Fay MD Osteoarthritis of cervical spine, unspecified spinal osteoarthritis complication status 05/30/2024 Orders Only [facility] [address] [place] [address] 4 [address] [place] [phone] Heidi Fya MD Osteoarthritis of cervical spine, unspecified spinal osteoarthritis complication status (Primary Dx) 05/27/2024 Orders Only [facility] [address] [place] [address] Outpatient Health [address] [place] [address] Janette Mas MD Foot callus (Primary Dx) 05/14/2024 Orders Only [facility] [phone] Unknown, Notinfile 05/12/2024 Orders Only [facility] [phone] Unknown, Notinfile 05/09/2024 Orders Only [facility] [phone] Unknown, Notinfile 05/06/2024 Orders Only [facility] [phone] Unknown, Notinfile 05/05/2024 Orders Only [facility] [phone] Unknown, Notinfile from Last 3 Months Allergies [...] 04/10/2024 Assessment & Plan (04/10/2024 2:29 PM NETWORK SUPPORT ANALYST): Does not wish to return to current ECF. CC working with sister to find new ECF. Have decided to return to previous ECF- everyone was really nice just overworked Central cord syndrome, subsequent encounter 07/2023 Assessment & Plan (04/11/2024 9:53 AM NETWORK SUPPORT ANALYST): P/w worsening falls, numbness in all extremities [...] 04/08/2024 Assessment & Plan (04/10/2024 10:01 AM NETWORK SUPPORT ANALYST): His sister reports that he has had [...] 03/04/2024 Assessment & Plan (06/05/2024 3:40 PM NETWORK SUPPORT ANALYST): Tmax 20/23, +FHx (sister, father), angles open [...] 02/04/2024 Assessment & Plan (04/08/2024 10:11 PM NETWORK SUPPORT ANALYST): Reports quitting tobacco. - congratulated patient on [...] ophthalmology. 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 Utilities Answer Date Recorded In the past 12 months has e [employer], [employer], oil, or water [employer]! threatened to shut off services in your [...] any clubs o r organizations such as anglican groups, unions, fraternal or athletic groups, or [...] any time in the past 12 m [facility], were you homeless or living in a fpc (including now)? No 04/24/2024 Personal Safety Answer Date Recorded Have you ever been in or are you currently in a harmful physical or emotional relationship or is someone making you feel afraid or unsafe? Denies 04/21/2024 Sex and Gender Information Value Date Recorded Sex Assigned at Not on file Legal Sex Male 9:06 PM NETWORK SUPPORT ANALYST Gender Identity Not on file Sexual Orientation Not on file Last Filed Vital Signs Vital Sign Reading Time Taken Comments Blood Pressure 106/60 04/25/2024 11:26 AM NETWORK SUPPORT ANALYST Pulse 95 04/25/2024 11:26 AM NETWORK SUPPORT ANALYST Temperature 37.7 C (99.9 F) 04/25/2024 11:26 AM NETWORK SUPPORT ANALYST Respiratory Rate 17 04/25/2024 11:26 AM NETWORK SUPPORT ANALYST Oxygen Saturation 99% 04/25/2024 11:26 AM NETWORK SUPPORT ANALYST Inhaled Oxygen Concentration - - Weight 83 kg (183 lb) 07/17/2024 3:13 PM CDT Height 177.8 cm (5' 10 ) 07/17/2024 3:13 PM CDT Body Mass Index 26.26 07/17/2024 3:13 PM CDT Plan of Treatment Scheduled Procedures Name Priority Associated Diagnoses Date/Ti me COLONOSCOPY Open Access Healthcare maintenance Medical Devices Implanted Type Area Workers Compensation Claims Specialist Device Identifier Shelf Expiration Date Model / Serial / Lot [employer] Centerpiece 10mm Multiple Hole Open Door Precut Kickstand Color 853-010 - [id number] Implanted:Qty: 3 on 04/21/2024 by Heidi Fay MD at [facility] N/A: Spine Cervical [employer] 853-010 / / [employer] Spinal Screw Anterior Cervical Odlp Solid 2.0x5mm [id number] - [id number] Implanted:Qty: 5 on 04/21/2024 by Heidi Fay MD at [facility] N/A: Spine Cervical [employer] [id number] / / [employer] Spinal Screw Anterior Cervical Odlp Solid 2.0x7mm [id number] - [id number] Implanted:Qty: 7 on 04/21/2024 by Heidi Fay MD at [facility] N/A: Spine Cervical [employer] [id number] / / Procedures Procedure Name Priority Date/Time Associated Diagnosis Comments XR SPINE CERVICAL 2 OR 3 VIEWS Schedule Routine, Read Routine (OP Routine) 07/17/2024 3:14 PM CDT Osteoarthritis of cervical spine, unspecified spinal osteoarthritis complication status LORENZO VISUAL FIELD - OU - BOTH EYES Routine 06/05/2024 3:39 PM NETWORK SUPPORT ANALYST Primary open angle glaucoma (POAG) of both eyes, severe stage XR SPINE CERVICAL 2 OR 3 VIEWS Schedule Routine, Read Routine (OP Routine) 06/02/2024 2:39 PM NETWORK SUPPORT ANALYST Osteoarthritis of cervical spine, unspecified spinal osteoarthritis complication status EGFR Routine 05/14/2024 4:57 AM NETWORK SUPPORT ANALYST BASIC METABOLIC PANEL Routine 05/14/2024 4:57 AM NETWORK SUPPORT ANALYST DIFFERENTIAL AUTO Routine 05/14/2024 4:5 7 AM NETWORK SUPPORT ANALYST CBC WITH AUTO DIFFERENTIAL Routine 05/14/2024 4:57 AM NETWORK SUPPORT ANALYST EGFR Routine 05/12/2024 4:45 AM NETWORK SUPPORT ANALYST BASIC METABOLIC PANEL Routine 05/12/2024 4:45 AM NETWORK SUPPORT ANALYST DIFFERENTIAL AUTO Routine 05/12/2024 4:4 5 AM NETWORK SUPPORT ANALYST CBC WITH AUTO DIFFERENTIAL Routine 05/12/2024 4:45 AM NETWORK SUPPORT ANALYST INFLUENZA A/B, RSV, AND COVID-19 PCR STAT 05/09/2024 11:20 AM NETWORK SUPPORT ANALYST DIFFERENTIAL AUTO Routine 05/06/2024 4:5 7 AM NETWORK SUPPORT ANALYST CBC WITH AUTO DIFFERENTIAL Routine 05/06/2024 4:57 AM NETWORK SUPPORT ANALYST EGFR Routine 05/05/2024 5:05 AM NETWORK SUPPORT ANALYST BASIC METABOLIC PANEL Routine 05/05/2024 5:05 AM NETWORK SUPPORT ANALYST DIFFERENTIAL AUTO Routine 05/05/2024 5:0 5 AM NETWORK SUPPORT ANALYST CBC WITH AUTO DIFFERENTIAL Routine 05/05/2024 5:05 AM NETWORK SUPPORT ANALYST CT LUNG CANCER SCREENING Schedule Routine, Read Routine (OP Routine) 03/11/2024 1:07 PM NETWORK SUPPORT ANALYST Personal history of nicotine dependence HEPATITIS PANEL, [...] OU - Both Eyes (06/05/2024 3:39 PM NETWORK SUPPORT ANALYST) Pattern Deviation OD 7.57 dB CONTINUUM Mean Deviation OD -9.74 dB CONTINUUM Anatomical Region Laterality Modality Head Visual Field Narrative 06/05/2024 3:39 PM NETWORK SUPPORT ANALYST Right Eye Fixation was borderline. Cooperation was good. Reliability was good. Foveal threshold was normal. Mean Deviation was -9.74 dB. Pattern Deviation was 7.57 dB. Notes OD: superior and inferior nasal arcuates OS: dense superior altitudinal defect, inferior arcuate us Linda Nguyen MD OPHTH VISUAL FIELD Final Result * XR Spine Cervical 2 or 3 Views (06/02/2024 2:39 PM NETWORK SUPPORT ANALYST) Anatomical Region Laterality Modality Spine N/A Computed Radiogr aphy 06/02/2024 2:46 PM NETWORK SUPPORT ANALYST Impressions 06/02/2024 2:46 PM NETWORK SUPPORT ANALYST 1. Drain removal following C3 laminectomy and C4-C6 laminoplasties. Electronically signed by: Ghassan Benitez M.D. Narrative 06/02/2024 2:46 PM NETWORK SUPPORT ANALYST EXAMINATION: XR SPINE CERVICAL 2 OR 3 [...] Resul t * eGFR (05/14/2024 4:57 AM NETWORK SUPPORT ANALYST) eGFR >90 >=60 mL/min/1. 73 m2 [facility] [...] was last reviewed 2021. Testing performed by: [facility], [address] [place] [address]., [address] Blood 05/14/2024 4:57 AM NETWORK SUPPORT ANALYST 05/14/2024 8:52 AM NETWORK SUPPORT ANALYST us Notinfile Unknown LAB BLOOD ORDERABLES Final Res ult [facility] [address] [facility] Department [place] [address] * Differential, auto (05/14/2024 4:57 AM NETWORK SUPPORT ANALYST) Neutrophil abs 6.2 1.5 - 6.5 K/cumm [facility] Comment:Testing performed by : [facility], [address] [place] [address], [place]., [address] Imm gran abs 0.0 0.0 - 0.1 K/cumm [facility] Comment:Testing performed by : [facility], [address] [place] [address], [place]., [address] Lymphocyte abs 1.4 0.8 - 3.3 K/cumm [facility] Comment:Testing performed by : [address], [place]., [address] Monocyte abs 0.8 0.2 - 0.8 K/cumm [facility] Comment:Testing performed by : [address], [place]., [address] Eosinophil abs 0.1 0.0 - 0.5 K/cumm [facility] Comment:Testing performed by : [address] [address] Basophil abs 0.1 0.0 - 0.1 K/cumm [facility] Comment:Testing performed by : [address] [address] Neutrophil pct 71.4 % [facility] Comment: Interpretive Data Percent cell count reference ranges are not reported, since discordance with absolute values may lead to misinterpretation of CBC data. Current Interpretive Data was last revised on 2017. Testing performed by: [address] [address] Imm gran pct 0.5 % [facility] Comment: Interpretive Data Percent cell count reference ranges are not reported, since discordance with absolute values may lead to misinterpretation of CBC data. Current Interpretive Data was last revised on 2017. Testing performed by: [address] [address] Lymphocyte pct 16.4 % [facility] Comment: Interpretive Data Percent cell count reference ranges are not reported, since discordance with absolute values may lead to misinterpretation of CBC data. Current Interpretive Data was last revised on 2017. Testing performed by: [address] [address] Monocyte pct 9.5 % [facility] Comment: Interpretive Data Percent cell count reference ranges are not reported, since discordance with absolute values may lead to misinterpretation of CBC data. Current Interpretive Data was last revised on 2017. Testing performed by: [address] [address] Eosinophil pct 1.5 % [facility] Comment: Interpretive Data Percent cell count reference ranges are not reported, since discordance with absolute values may lead to misinterpretation of CBC data. Current Interpretive Data was last revised on 2017. Testing performed by: [address] [address] Basophil pct 0.7 % [facility] Comment: Interpretive Data Percent cell count reference ranges are not reported, since discordance with absolute values may lead to misinterpretation of CBC data. Current Interpretive Data was last revised on 2017. Testing performed by: [address] [address] Blood 05/14/2024 4:57 AM NETWORK SUPPORT ANALYST 05/14/2024 8:52 AM NETWORK SUPPORT ANALYST us Notinfile Unknown LAB BLOOD ORDERABLES Final Res ult [facility] Department of Laboratories [place], [place] [id number] * (ABNORMAL) CBC with auto differential (05/14/2024 4:57 AM NETWORK SUPPORT ANALYST) WBC 8.7 3.8 - 9.9 K/cumm [facility] Comment:Testing performed by : [address] [address] Hgb 12.6(L) 13.0 - 17.5 g/dL [facility] Comment:Testing performed by : [address] [address] Hct 37.1(L) 38.9 - 50.3 % [facility] Comment:Testing performed by : [address] [address] Plt 221 150 - 400 K/cumm [facility] Comment:Testing performed by : [address] [address] MPV 10.8 9.1 - 12.3 fL [facility] Comment:Testing performed by : [address] [address] RBC 4.09(L) 4.30 - 5.80 M/cumm [facility] Comment:Testing performed by : [address] [address] MCV 90.7 81.3 - 96.4 fL [facility] Comment:Testing performed by : [address] [address] MCH 30.8 27.1 - 33.3 pg [facility] Comment:Testing performed by : [address] [address] MCHC 34.0 32.3 - 35.7 g/dL [facility] Comment:Testing performed by : [address] [address] RDW CV 13.3 11.1 - 14.9 % [facility] Comment:Testing performed by : [address] [address] RDW SD 44.0 35.7 - 48.1 fL [facility] Comment:Testing performed by : [address] [address] NRBC abs 0.00 0.00 - 0.01 K/cumm [facility] Comment:Testing performed by : [address] [address] Blood 05/14/2024 4:57 AM NETWORK SUPPORT ANALYST 05/14/2024 8:52 AM NETWORK SUPPORT ANALYST us Notinfile Unknown LAB BLOOD ORDERABLES Final Res ult [facility] [address] [facility] Department [place] [address] * (ABNORMAL) Basic metabolic panel (05/14/2024 4:57 AM NETWORK SUPPORT ANALYST) Sodium 140 135 - 145 mmol/L [facility] Comment:Testing performed by : [address] [address] Potassium, pl 4.3 3.3 - 4.9 mmol/L [facility] Comment:Testing performed by : [address] [address] Chloride 104 97 - 110 mmol/L [facility] Comment:Testing performed by : [address] [address] CO2 25 22 - 32 mmol/L [facility] Comment:Testing performed by : [address] [address] Anion gap 11 2 - 15 mmol/L [facility] Comment:Testing performed by : [address], [place]., [address] BUN 16 6 - 25 mg/dL [facility] Comment:Testing performed by : [address] [address] Creatinine 0.60(L) 0.80 - 1.30 mg/dL [facility] Comment:Testing performed by : [address] [address] Glucose 125 70 - 199 mg/dL [facility] Comment: Interpretive Data Fasting glucose >/= [...] was last revised 2022. Testing performed by: [address] [address] Calcium 9.2 8.5 - 10.3 mg/dL [facility] Comment:Testing performed by : [address] [address] Blood 05/14/2024 4:57 AM NETWORK SUPPORT ANALYST 05/14/2024 8:52 AM NETWORK SUPPORT ANALYST us Notinfile Unknown LAB BLOOD ORDERABLES Final Res ult [facility] [address] [facility] [place] [address] * eGFR (05/12/2024 4:45 AM NETWORK SUPPORT ANALYST) eGFR >90 >=60 mL/min/1. 73 m2 [facility] [...] was last reviewed 2021. Testing performed by: [address] [address] Blood 05/12/2024 4:45 AM NETWORK SUPPORT ANALYST 05/12/2024 9:19 AM NETWORK SUPPORT ANALYST us Notinfile Unknown LAB BLOOD ORDERABLES Final Res ult Performing Organization Address [facility] de Phone Number [facility] [address] [facility] Department [place] [address] * (ABNORMAL) Differential, auto (05/12/2024 4:45 AM NETWORK SUPPORT ANALYST) Neutrophil abs 7.5(H) 1.5 - 6.5 K/cumm [facility] Comment:Testing performed by : [address] [address] Imm gran abs 0.0 0.0 - 0.1 K/cumm [facility] Comment:Testing performed by : [address] [address] Lymphocyte abs 1.3 0.8 - 3.3 K/cumm [facility] Comment:Testing performed by : [address] [address] Monocyte abs 1.0(H) 0.2 - 0.8 K/cumm [facility] Comment:Testing performed by : [address] [address] Eosinophil abs 0.1 0.0 - 0.5 K/cumm [facility] Comment:Testing performed by : [address], [place]., [address] Basophil abs 0.1 0.0 - 0.1 K/cumm [facility] Comment:Testing performed by : [address] [address] Neutrophil pct 75.5 % [facility] Comment: Interpretive Data Percent cell count reference ranges are not reported, since discordance with absolute values may lead to misinterpretation of CBC data. Current Interpretive Data was last revised on 2017. Testing performed by: [address] [address] Imm gran pct 0.4 % [facility] Comment: Interpretive Data Percent cell count reference ranges are not reported, since discordance with absolute values may lead to misinterpretation of CBC data. Current Interpretive Data was last revised on 2017. Testing performed by: [address] [address] Lymphocyte pct 12.7 % [facility] Comment: Interpretive Data Percent cell count reference ranges are not reported, since discordance with absolute values may lead to misinterpretation of CBC data. Current Interpretive Data was last revised on 2017. Testing performed by: [address] [address] Monocyte pct 9.8 % [facility] Comment: Interpretive Data Percent cell count reference ranges are not reported, since discordance with absolute values may lead to misinterpretation of CBC data. Current Interpretive Data was last revised on 2017. Testing performed by: [address] [address] Eosinophil pct 1.1 % [facility] Comment: Interpretive Data Percent cell count reference ranges are not reported, since discordance with absolute values may lead to misinterpretation of CBC data. Current Interpretive Data was last revised on 2017. Testing performed by: [address] [address] Basophil pct 0.5 % [facility] Comment: Interpretive Data Percent cell count reference ranges are not reported, since discordance with absolute values may lead to misinterpretation of CBC data. Current Interpretive Data was last revised on 2017. Testing performed by: [address] [address] Blood 05/12/2024 4:45 AM NETWORK SUPPORT ANALYST 05/12/2024 9:19 AM NETWORK SUPPORT ANALYST us Notinfile Unknown LAB BLOOD ORDERABLES Final Res ult [facility] [address] [facility] Department [place] [address] * (ABNORMAL) CBC with auto differential (05/12/2024 4:45 AM NETWORK SUPPORT ANALYST) WBC 10.0(H) 3.8 - 9.9 K/cumm [facility] Comment:Testing performed by : [address] [address] Hgb 12.7(L) 13.0 - 17.5 g/dL [facility] Comment:Testing performed by : [address] [address] Hct 37.3(L) 38.9 - 50.3 % [facility] Comment:Testing performed by : [address] [address] Plt 217 150 - 400 K/cumm [facility] Comment:Testing performed by : [address] [address] MPV 11.0 9.1 - 12.3 fL [facility] Comment:Testing performed by : [address] [address] RBC 4.10(L) 4.30 - 5.80 M/cumm [facility] Comment:Testing performed by : [address] [address] MCV 91.0 81.3 - 96.4 fL [facility] Comment:Testing performed by : [address] [address] MCH 31.0 27.1 - 33.3 pg [facility] Comment:Testing performed by : [address] [address] MCHC 34.0 32.3 - 35.7 g/dL [facility] Comment:Testing performed by : [address] [address] RDW CV 13.7 11.1 - 14.9 % [facility] Comment:Testing performed by : [address] [address] RDW SD 45.6 35.7 - 48.1 fL [facility] Comment:Testing performed by : [address] [address] NRBC abs 0.00 0.00 - 0.01 K/cumm [facility] Comment:Testing performed by : [address] [address] Blood 05/12/2024 4:45 AM NETWORK SUPPORT ANALYST 05/12/2024 9:19 AM NETWORK SUPPORT ANALYST us Notinfile Unknown LAB BLOOD ORDERABLES Final Res ult [facility] [place] [address] [facility] Department of Laboratories [place], [place] [id number] * (ABNORMAL) Basic metabolic panel (05/12/2024 4:45 AM NETWORK SUPPORT ANALYST) Sodium 138 135 - 145 mmol/L [facility] Comment:Testing performed by : [address] [address] Potassium, pl 3.9 3.3 - 4.9 mmol/L [facility] Comment:Testing performed by : [address] [address] Chloride 102 97 - 110 mmol/L [facility] Comment:Testing performed by : [address] [address] CO2 26 22 - 32 mmol/L [facility] Comment:Testing performed by : [address] [address] Anion gap 10 2 - 15 mmol/L [facility] Comment:Testing performed by : [address] [address] BUN 17 6 - 25 mg/dL [facility] Comment:Testing performed by : [address] [address] Creatinine 0.60(L) 0.80 - 1.30 mg/dL [facility] Comment:Testing performed by : [address] [address] Glucose 153 70 - 199 mg/dL [facility] [...] was last revised 2022. Testing performed by: [address] [address] Calcium 9.2 8.5 - 10.3 mg/dL [facility] Comment:Testing performed by : [address] [address] Blood 05/12/2024 4:45 AM NETWORK SUPPORT ANALYST 05/12/2024 9:19 AM NETWORK SUPPORT ANALYST us Notinfile Unknown LAB BLOOD ORDERABLES Final Res ult [facility] [address] [facility] Department [place] [address] * Influenza A/B, RSV, and COVID-19 PCR Nasopharyngeal (05/09/2024 11:20 AM NETWORK SUPPORT ANALYST) [facility] COVID-19 RNA Negative Negative [facility] Comment:Testing performed by : [address] [address] Influenza A RNA Negative Negative [facility] Comment:Testing performed by : [address] [address] Influenza B RNA Negative Negative [facility] Comment:Testing performed by : [address] [address] RSV RNA Negative Negative [facility] Comment: Interpretive data: Testing performed by [facility]. This test is performed using the [employer] Xpert Xpress CoV-2/Flu/RSV plus assay. This is a multiplex, real-time reverse transcriptase PCR assay intended for the qualitative detection of nucleic acid from SARS-CoV-2, influenza A, influenza B, and respiratory syncytial virus. This assay has been cleared by the [place] Food and Drug administration. The performance characteristics have been verified by the [facility]. Results must be considered in the clinical context, and a negative result does not rule out infection. Interpretive Data last revised 2023 Testing performed by: [address] [address] Nasopharyngeal 05/09/2024 11 :20 AM NETWORK SUPPORT ANALYST 05/09/2024 12:30 PM NETWORK SUPPORT ANALYST us Notinfile Unknown LAB MICROBIOLOGY - GENERAL ORD ERABLES Final Result [facility] [address] [facility] Department [place] [address] * (ABNORMAL) Differential, auto (05/06/2024 4:57 AM NETWORK SUPPORT ANALYST) [facility] Neutrophil abs 6.6(H) 1.5 - 6.5 K/cumm [facility] Comment:Testing performed by : [address] [address] Imm gran abs 0.1 0.0 - 0.1 K/cumm [facility] Comment:Testing performed by : [address] [place]., [address] Lymphocyte abs 1.6 0.8 - 3.3 K/cumm CERNER Comment:Testing performed by : [address] [address] Monocyte abs 0.6 0.2 - 0.8 K/cumm CERNER Comment:Testing performed by : [address] [address] Eosinophil abs 0.1 0.0 - 0.5 K/cumm [facility] Comment:Testing performed by : [address] [address] Basophil abs 0.1 0.0 - 0.1 K/cumm [facility] Comment:Testing performed by : [address] [address] Neutrophil pct 72.1 % [facility] Comment: Interpretive Data Percent cell count reference ranges are not reported, since discordance with absolute values may lead to misinterpretation of CBC data. Current Interpretive Data was last revised on 2017. Testing performed by: [address] [address] Imm gran pct 1.0 % CERNER Comment: Interpretive Data Percent cell count reference ranges are not reported, since discordance with absolute values may lead to misinterpretation of CBC data. Current Interpretive Data was last revised on 2017. Testing performed by: [address] [address] Lymphocyte pct 17.9 % CERNER Comment: Interpretive Data Percent cell count reference ranges are not reported, since discordance with absolute values may lead to misinterpretation of CBC data. Current Interpretive Data was last revised on 2017. Testing performed by: [address] [address] Monocyte pct 7.0 % C[facility]ER Comment: Interpretive Data Percent cell count reference ranges are not reported, since discordance with absolute values may lead to misinterpretation of CBC data. Current Interpretive Data was last revised on 2017. Testing performed by: [address] [address] Eosinophil pct 1.5 % CERNER Comment: Interpretive Data Percent cell count reference ranges are not reported, since discordance with absolute values may lead to misinterpretation of CBC data. Current Interpretive Data was last revised on 2017. Testing performed by: [address] [address] Basophil pct 0.5 % [facility] [place] Comment: Interpretive Data Percent cell count reference ranges are not reported, since discordance with absolute values may lead to misinterpretation of CBC data. Current Interpretive Data was last revised on 2017. Testing performed by: [address] [address] Blood 05/06/2024 4:57 AM NETWORK SUPPORT ANALYST 05/06/2024 8:25 AM NETWORK SUPPORT ANALYST us Notinfile Unknown LAB BLOOD ORDERABLES Final Res ult [facility] [address] [facility] Department [place] [address] * (ABNORMAL) CBC with auto differential (05/06/2024 4:57 AM NETWORK SUPPORT ANALYST) WBC 9.2 3.8 - 9.9 K/cumm [facility] [place] Comment:Testing performed by : [address] [address] Hgb 12.1(L) 13.0 - 17.5 g/dL [facility] [place] Comment:Testing performed by : [address] [address] Hct 35.4(L) 38.9 - 50.3 % [facility] [place] Comment:Testing performed by : [address] [address] Plt 279 150 - 400 K/cumm [facility] [place] Comment:Testing performed by : [address] [address] MPV 10.2 9.1 - 12.3 fL [facility] [place] Comment:Testing performed by : [address] [address] RBC 3.91(L) 4.30 - 5.80 M/cumm [facility] [place] Comment:Testing performed by : [facility], [address] [place] [address]., [address] MCV 90.5 81.3 - 96.4 fL [facility] [place] Comment:Testing performed by : [address] [address] MCH 30.9 27.1 - 33.3 pg [facility] [place] Comment:Testing performed by : [address] [address] MCHC 34.2 32.3 - 35.7 g/dL [facility] [place] Comment:Testing performed by : [address] [address] RDW CV 13.3 11.1 - 14.9 % [facility] [place] Comment:Testing performed by : [address] [address] RDW SD 43.6 35.7 - 48.1 fL [facility] Comment:Testing performed by : [address] [address] NRBC abs 0.00 0.00 - 0.01 K/cumm [facility] Comment:Testing performed by : [address] [address] Blood 05/06/2024 4:57 AM NETWORK SUPPORT ANALYST 05/06/2024 8:25 AM NETWORK SUPPORT ANALYST us Notinfile Unknown LAB BLOOD ORDERABLES Final Res ult [facility] [place] [address] [facility] Department of Laboratories [place], [place] [id number] * eGFR (05/05/2024 5:05 AM NETWORK SUPPORT ANALYST) eGFR >90 >=60 mL/min/1. 73 m2 [facility] [...] was last reviewed 2021. Testing performed by: [address] [address] Blood 05/05/2024 5:05 AM NETWORK SUPPORT ANALYST 05/05/2024 8:24 AM NETWORK SUPPORT ANALYST us Notinfile Unknown LAB BLOOD ORDERABLES Final Res ult [facility] Department [place] [address] * (ABNORMAL) Differential, auto (05/05/2024 5:05 AM NETWORK SUPPORT ANALYST) Neutrophil abs 8.1(H) 1.5 - 6.5 K/cumm [facility] Comment:Testing performed by : [address] [address] Imm gran abs 0.1 0.0 - 0.1 K/cumm [facility] Comment:Testing performed by : [address] [address] Lymphocyte abs 1.5 0.8 - 3.3 K/cumm [facility] Comment:Testing performed by : [address] [address] Monocyte abs 0.7 0.2 - 0.8 K/cumm [facility] Comment:Testing performed by : [address] [address] Eosinophil abs 0.1 0.0 - 0.5 K/cumm [facility] Comment:Testing performed by : [address] [address] Basophil abs 0.0 0.0 - 0.1 K/cumm [facility] Comment:Testing performed by : [address] [address] Neutrophil pct 76.9 % [facility] Comment: Interpretive Data Percent cell count reference ranges are not reported, since discordance with absolute values may lead to misinterpretation of CBC data. Current Interpretive Data was last revised on 2017. Testing performed by: [address] [address] Imm gran pct 1.0 % [facility] Comment: Interpretive Data Percent cell count reference ranges are not reported, since discordance with absolute values may lead to misinterpretation of CBC data. Current Interpretive Data was last revised on 2017. Testing performed by: [address] [address] Lymphocyte pct 13.9 % [facility] Comment: Interpretive Data Percent cell count reference ranges are not reported, since discordance with absolute values may lead to misinterpretation of CBC data. Current Interpretive Data was last revised on 2017. Testing performed by: [address] [address] Monocyte pct 6.6 % [facility] Comment: Interpretive Data Percent cell count reference ranges are not reported, since discordance with absolute values may lead to misinterpretation of CBC data. Current Interpretive Data was last revised on 2017. Testing performed by: [address] [address] Eosinophil pct 1.2 % [facility] Comment: Interpretive Data Percent cell count reference ranges are not reported, since discordance with absolute values may lead to misinterpretation of CBC data. Current Interpretive Data was last revised on 2017. Testing performed by: [address] [address] Basophil pct 0.4 % [facility] Comment: Interpretive Data Percent cell count reference ranges are not reported, since discordance with absolute values may lead to misinterpretation of CBC data. Current Interpretive Data was last revised on 2017. Testing performed by: [address] [address] Blood 05/05/2024 5:05 AM NETWORK SUPPORT ANALYST 05/05/2024 8:24 AM NETWORK SUPPORT ANALYST us Notinfile Unknown LAB BLOOD ORDERABLES Final Res ult [facility] [place] [address] [facility] Department [place] [address] * (ABNORMAL) CBC with auto differential (05/05/2024 5:05 AM NETWORK SUPPORT ANALYST) WBC 10.6(H) 3.8 - 9.9 K/cumm [facility] [place] Comment:Testing performed by : [address] [address] Hgb 12.1(L) 13.0 - 17.5 g/dL [facility] [place] Comment:Testing performed by : [address] [address] Hct 35.2(L) 38.9 - 50.3 % [facility] [place] Comment:Testing performed by : [address] [address] Plt 291 150 - 400 K/cumm [facility] [place] Comment:Testing performed by : [address], [address] MPV 10.1 9.1 - 12.3 fL [facility] [place] Comment:Testing performed by : [address] [address] RBC 3.87(L) 4.30 - 5.80 M/cumm [facility] [place] Comment:Testing performed by : [address] [address] MCV 91.0 81.3 - 96.4 fL [facility] [place] Comment:Testing performed by : [address] [address] MCH 31.3 27.1 - 33.3 pg [facility] [place] Comment:Testing performed by : [address] [address] MCHC 34.4 32.3 - 35.7 g/dL [facility] [place] Comment:Testing performed by : [address] [address] RDW CV 13.3 11.1 - 14.9 % [facility] [place] Comment:Testing performed by : [address] [address] RDW SD 43.7 35.7 - 48.1 fL [facility] [place] Comment:Testing performed by : [address] [address] NRBC abs 0.00 0.00 - 0.01 K/cumm [facility] [place] Comment:Testing performed by : [address] [address] Blood 05/05/2024 5:05 AM NETWORK SUPPORT ANALYST 05/05/2024 8:24 AM NETWORK SUPPORT ANALYST us Notinfile Unknown LAB BLOOD ORDERABLES Final Res ult [facility] [place] [facility] Department [place] [address] * (ABNORMAL) Basic metabolic panel (05/05/2024 5:05 AM NETWORK SUPPORT ANALYST) Sodium 138 135 - 145 mmol/L [facility] [place] Comment:Testing performed by : [address] [address] Potassium, pl 4.1 3.3 - 4.9 mmol/L [facility] [place] Comment:Testing performed by : [address] [address] Chloride 104 97 - 110 mmol/L [facility] [place] Comment:Testing performed by : [address] [address] CO2 25 22 - 32 mmol/L [facility] [place] Comment:Testing performed by : [address] [address] Anion gap 9 2 - 15 mmol/L [facility] [place] Comment:Testing performed by : [address] [address] BUN 17 6 - 25 mg/dL [facility] [place] Comment:Testing performed by : [address] [address] Creatinine 0.70(L) 0.80 - 1.30 mg/dL [facility] [place] Comment:Testing performed by : [address] [address] Glucose 142 70 - 199 mg/dL [facility] [...] was last revised 2022. Testing performed by: [address] [address] Calcium 9.2 8.5 - 10.3 mg/dL [facility] [place] Comment:Testing performed by : [address] [address] Blood 05/05/2024 5:05 AM NETWORK SUPPORT ANALYST 05/05/2024 8:24 AM NETWORK SUPPORT ANALYST us Notinfile Unknown LAB BLOOD ORDERABLES Final Res ult [facility] [place] [address] [facility] Department [place] [address] * CT Lung Cancer Screening (03/11/2024 1:07 PM NETWORK SUPPORT ANALYST) Anatomical Region Laterality Modality Chest N/A Computed Tomogra phy 03/11/2024 1:46 PM NETWORK SUPPORT ANALYST Impressions 03/11/2024 2:47 PM NETWORK SUPPORT ANALYST 1. LungRADS Category 2 (benign). Recommend Low [...] John Conte M.D. Narrative 03/11/2024 2:47 PM NETWORK SUPPORT ANALYST EXAMINATION: Lung cancer screening CT of the [...] an active HCV infection. HCV RNA IU/mL 5800588(H ) <15 IU/mL [facility]ICAL [...] the management of these patients (J Hepatol, 3017-0613, ). COMMENT [facility] HISTORICAL RESULTS Comment: The analytical performance characteristics of this assay have been determined by [employer]. The modifications have not been cleared or approved by the FDA. This assay has been validated pursuant to the CLIA regulations and is used for clinical purposes. This test was performed using the KLAUS(R)AmpliPrep/ KLAUS(R)TaqMan(R)HCV Test,v2.0. For more information on this test, go to: http://education.InnoCyte/faq/BCB67d8 (This link is being provided for informational/ educational purposes only.) 09/25/2016 4:15 PM CDT 09/27/2016 12:45 PM CDT Narrative [facility] HISTORICAL RESULTS - 09/27/2016 12:34 PM CDT 0 PERFORMING LAB: [facility] [address] [address] [id number] Abhinav Cruz D.O., MPH Historical Provider LAB MICROBIOLOGY - GENERA L ORDERABLES Final Result [facility] HISTORICAL RESULTS from Last 3 Months or Most Recently Relevant to Health Maintenance Insurance Advance Directives For more information, please contact: [phone] Documents on File Type Date Recorded Patient Train Crew Member Expl anation ADVANCE DIRECTIVE 03/24/2024 7:47 AM Susan r of [employer] * Full Code (Latest Code Status on File) Date Activated Date Inactivated Comments 04/22/2024 5:16 AM 04/25/2024 5:38 PM * Full Code Date Activated Date Inactivated Comments 04/08/2024 9:42 PM 04/11/2024 6:32 PM * Full Code Date Activated Date Inactivated Comments 02/21/2024 12:46 AM 02/26/2024 6:04 PM Care Teams Assorter Relationship Specialty Start Date End Date Chani Beltran MD PhD [address] [facility] [address] PCP - General 03/25/24 Heidi Fay MD [address] [place] [address] Consulting Physician Neurosurgery 04/10/24
--- OUTSIDE RECORDS SUMMARY | 2024-08-03 17:48 | XMS_ITS | Clinical Summary ---
Author Organization [facility] Address [address] [place] [address] Care Team Providers Care Deaf Interpreter Name Role Phone None, Provider MD Primary [...] uit: Not Asked; Counseling Given: Not Answered [facility] Utilities Answer Date Recorded In the past [...] file 02/17/2024 How often do you attend [employer] or bah[employer] serv ices? Never 02/17/2024 Do you belong to any clubs o r organizations such as [employer] groups, unions, fraternal or athletic groups, or [...] any time in the past [address] [facility], were you homeless or living in a retirement (including now)? Yes 02/17/2024 Sex and Gender [...] 3:25 AM 02/21/2024 2:12 AM Care Teams Deaf Interpreter Relationship Specialty Start Date End Date None, Provider, PCP - General UNKNOWN PHYSICIAN SPECIALTY 02/16/24
--- OUTSIDE RECORDS SUMMARY | 2024-08-03 17:48 | XMS_ITS | Continuity of Care Document ---
Author Organization [facility] Address [address] [place] [address] Phone Care Team Providers Care Liner Roll Changer Name Role Phone Shayla Chatterjee Unavailable Unavailable Advance Directives Directive Yes / No Effective Date File Name No Information Encounters Encounter Description Practice Location Reason(s) For Visit Diagnoses Date Provider Providers Copied on Encounter [facility], [address], [place], [place], [id number], [place] tel:[phone] [address] [facility] [place] No Information Jul- 1-200 0 Shena Mcguire. [address] [facility] [place] , [address], [place], [address], [place]. tel:[phone] Family History Family Member Type Diagnosis Age At Onset No Information Payers Payer name Insurance type Covered republican ID Authoriza tion(s) [employer] SOI CI [id number] Social History Type Description Quantity Date Captured [...]
--- OUTSIDE RECORDS SUMMARY | 2024-08-03 17:48 | XMS_ITS | Clinical Summary ---
Author Organization [facility] Address [address] [place] [address] Care Team Providers Care Prop Making Supervisor Name Role Phone Chani Beltran MD PhD Primary Care Provi halle Heidi Fay MD Unavailable [phone] Allergies Active Allergy Reactions Criticality Noted Date [...] 04/10/2024 Assessment & Plan (04/10/2024 2:29 PM SPECIAL OFF[employer]): Does not wish to return to current ECF. CC working with sister to find new ECF. Have decided to return to previous ECF- everyone was really nice just overworked Central cord syndrome, subsequent encounter 07/2023 Assessment & Plan (04/11/2024 9:53 AM SPECIAL OFF[employer]): P/w worsening falls, numbness in all extremities [...] 04/08/2024 Assessment & Plan (04/10/2024 10:01 AM [employer] OFF[employer]): His sister reports that he has had [...] 03/04/2024 Assessment & Plan (06/05/2024 3:40 PM [employer]): Tmax 20/23, +FHx (sister, father), angles open [...] 02/04/2024 Assessment & Plan (04/08/2024 10:11 PM [employer] OFF[employer]): Reports quitting tobacco. - congratulated patient on [...] he is being bit (currently lives in [facility]). Is worried he has kaycee but exam [...] ophthalmology. 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 and losing [...] Department Care Team Description 07/21/2024 Orders Only [facility] Neurosurgery [address] [place] [address] Office Building [address] [place] [address] Heidi Fay MD Osteoarthritis of cervical spine, unspecified spinal osteoarthritis complication status (Primary Dx); History of spinal cord injury 07/17/2024 2:45 PM CDT Office Visit [facility] [address] [place] [address] Medical Office Building [address] [place] [phone] Heidi Fay MD Osteoarthritis of cervical spine, unspecified spinal osteoarthritis complication status 07/17/2024 2:15 PM CDT - 07/17/2024 11:59 PM CDT Hospital Encounter [id number] [address] [place] [address] [address] [place] [phone] Osteoarthritis of cervical spine, unspecified spinal osteoarthritis complication status Discharge Disposition: Discharge to home or self care 07/10/2024 Orders Only [facility] [address] [place] [address] Medical Office Building [address] [place] [address] Heidi Fay MD Osteoarthritis of cervical spine, unspecified spinal osteoarthritis complication status (Primary Dx) 07/09/2024 Telephone [facility] Home Care Services [address] [place] [address] Cece Boyce RN 07/09/2024 Orders Only [facility]surgery [address] [facility] Office [facility] [address] [place] [phone] Heidi Fay MD Osteoarthritis of cervical spine, unspecified spinal osteoarthritis complication status (Primary Dx) 06/05/2024 2:30 PM [employer] Office Visit [facility] Ophthalmology [address] [place] [address] [address] [place] [phone] Primary open angle glaucoma (POAG) of both eyes, severe stage (Primary Dx) 06/02/2024 2:45 PM [employer] Office Visit [facility] Neurosurgery [facility] [facility] Office [facility] [address] [place] [phone] Heidi Fay MD Osteoarthritis of cervical spine, unspecified spinal osteoarthritis complication status 06/02/2024 2:27 PM [employer] - 06/02/2024 11:59 PM [employer] Hospital Encounter [facility] [address] [facility] [address] [place] [phone] Osteoarthritis of cervical spine, unspecified spinal osteoarthritis complication status Discharge Disposition: Discharge to home or self care 06/02/2024 Orders Only [facility] [address] [facility] Office [facility] [address] [place] [phone] Heidi Fay MD Osteoarthritis of cervical spine, unspecified spinal osteoarthritis complication status (Primary Dx) 05/30/2024 Orders Only [facility] [address] [place] [address] Office [facility] [address] [place] [phone] Heidi Fay MD Osteoarthritis of cervical spine, unspecified spinal osteoarthritis complication status (Primary Dx) 05/27/2024 Orders Only [facility] Primary Care Medicine Clinic [facility] [address] [place] [address] Janette Mas MD Foot callus (Primary Dx) 05/14/2024 Orders Only [facility] [phone] Unknown, Notinfile 05/12/2024 Orders Only [facility] [phone] Unknown, Notinfile 05/09/2024 Orders Only [facility] [phone] Unknown, Notinfile 05/06/2024 Orders Only [facility] [phone] Unknown, Notinfile 05/05/2024 Orders Only [facility] [phone] Unknown, Notinfile from Last 3 Months Immunizations Immunization Administration Dates Next Due COVID-19 mRNA (LotLinx) 0.3 m L (30 mcg) vaccine (12 [...] materials from doctor or pharmacy Often 03/25/2024 [facility] Utilities Answer Date [...] often do you attend chur ch or advent services? Never 04/24/2024 Do you belong to any clubs o r organizations such as restorationist groups, unions, fraternal or athletic groups, or [...] were you homeless or living in a correction (including now)? No 04/24/2024 Personal Safety Answer Date Recorded Have you ever been in or are you currently in a harmful physical or emotional relationship or is someone making you feel afraid or unsafe? Denies 04/21/2024 Sex and Gender Information Value Date Recorded Sex Assigned at Not on file Legal Sex Male 9:06 PM [employer] Gender Identity Not on file Sexual Orientation Not on file Obstetrics History Last Filed Vital Signs Vital Sign Reading Time Taken Comments Blood Pressure 106/60 04/25/2024 11:26 AM [employer] Pulse 95 04/25/2024 11:26 AM [employer] Temperature 37.7 C (99.9 F) 04/25/2024 11:26 AM [employer] Respiratory Rate 17 04/25/2024 11:26 AM [employer] Oxygen Saturation 99% 04/25/2024 11:26 AM [employer] Inhaled Oxygen Concentration - - Weight 83 [...] this topic Medical Devices Implanted Type Area Dairy Husbandman Device Identifier Shelf Expiration Date Model / Serial / Lot [employer] Centerpiece 10mm Multiple Hole Open Door Precut Kickstand Color 853-010 - [id number] Implanted:Qty: 3 on 04/21/2024 by Heidi Fay MD at [facility] N/A: Spine Cervical [employer] 853-010 / / [employer] Spinal Screw Anterior Cervical Odlp Solid 2.0x5mm [id number] - [id number] Implanted:Qty: 5 on 04/21/2024 by Heidi Fay MD at [facility] N/A: Spine Cervical [employer] [id number] / / [employer] Spinal Screw Anterior Cervical Odlp Solid 2.0x7mm [id number] - [id number] Implanted:Qty: 7 on 04/21/2024 by Heidi Fay MD at [facility] N/A: Spine Cervical [employer] [id number] / / Procedures Procedure Name Priority Date/Time Associated Diagnosis Comments XR SPINE CERVICAL 2 OR 3 VIEWS Schedule Routine, Read Routine (OP Routine) 07/17/2024 3:14 PM CDT Osteoarthritis of cervical spine, unspecified spinal osteoarthritis complication status LORENZO VISUAL FIELD - OU - BOTH EYES Routine 06/05/2024 3:39 PM [employer] Primary open angle glaucoma (POAG) of both eyes, severe stage XR SPINE CERVICAL 2 OR 3 VIEWS Schedule Routine, Read Routine (OP Routine) 06/02/2024 2:39 PM [employer] Osteoarthritis of cervical spine, unspecified spinal osteoarthritis complication status EGFR Routine 05/14/2024 4:57 AM [employer] BASIC METABOLIC PANEL Routine 05/14/2024 4:57 AM [employer] DIFFERENTIAL AUTO Routine 05/14/2024 4:5 7 AM [employer] CBC WITH AUTO DIFFERENTIAL Routine 05/14/2024 4:57 AM [employer] EGFR Routine 05/12/2024 4:45 AM [employer] BASIC METABOLIC PANEL Routine 05/12/2024 4:45 AM [employer] DIFFERENTIAL AUTO Routine 05/12/2024 4:4 5 AM [employer]ER [employer]AT CBC WITH AUTO DIFFERENTIAL Routine 05/12/2024 4:45 AM [employer] INFLUENZA A/B, RSV, AND COVID-19 PCR STAT 05/09/2024 11:20 AM [employer] DIFFERENTIAL AUTO Routine 05/06/2024 4:5 7 AM [employer] CBC WITH AUTO DIFFERENTIAL Routine 05/06/2024 4:57 AM [employer] EGFR Routine 05/05/2024 5:05 AM [employer] BASIC METABOLIC PANEL Routine 05/05/2024 5:05 AM [employer] DIFFERENTIAL AUTO Routine 05/05/2024 5:0 5 AM [employer]ER [employer]AT CBC WITH AUTO DIFFERENTIAL Routine 05/05/2024 5:05 AM [employer] [address] LUNG CANCER SCREENING Schedule Routine, Read Routine (OP Routine) 03/11/2024 1:07 PM [employer] Personal history of nicotine dependence HEPATITIS PANEL, [...] OU - Both Eyes (06/05/2024 3:39 PM [employer]) Pattern Deviation OD 7.57 dB CONTINUUM Mean Deviation OD -9.74 dB CONTINUUM Anatomical Region Laterality Modality Head Visual Field Narrative 06/05/2024 3:39 PM [employer] Right Eye Fixation was borderline. Cooperation was good. Reliability was good. Foveal threshold was normal. Mean Deviation was -9.74 dB. Pattern Deviation was 7.57 dB. Notes OD: superior and inferior nasal arcuates OS: dense superior altitudinal defect, inferior arcuate Linda Nguyen MD OPH VISUAL FIELD Final Result * XR Spine Cervical 2 or 3 Views (06/02/2024 2:39 PM [employer]) Anatomical Region Laterality Modality Spine N/A Computed Radiogr aphy 06/02/2024 2:46 PM [employer] Impressions 06/02/2024 2:46 PM [employer] 1. Drain removal following C3 laminectomy and C4-C6 laminoplasties. Electronically signed by: Ghassan Benitez M.D. Narrative 06/02/2024 2:46 PM [employer] EXAMINATION: XR SPINE CERVICAL 2 OR 3 [...] Resul t * eGFR (05/14/2024 4:57 AM [employer] OFF[employer]ER [employer]) eGFR >90 >=60 mL/min/1. 73 m2 [facility] Comment: Interpretive Data Reference Interval Normal >/= [...] was last reviewed 2021. Testing performed by: [address] [address] Blood 05/14/2024 4:57 AM [employer] 05/14/2024 8:52 AM [employer]ER [employer]OMAT us Notinfile Unknown LAB BLOOD ORDERABLES Final Res ult [facility] [address] [facility] Department [place] [address] * Differential, auto (05/14/2024 4:57 AM [employer] OFF[employer]ER [employer]AT) Neutrophil abs 6.2 1.5 - 6.5 K/cumm [facility] [place] Comment:Testing performed by : [address] [address] Imm gran abs 0.0 0.0 - 0.1 K/cumm [facility] [place] Comment:Testing performed by : [address] [address] Lymphocyte abs 1.4 0.8 - 3.3 K/cumm [facility] [place] Comment:Testing performed by : [address] [address] Monocyte abs 0.8 0.2 - 0.8 K/cumm [facility] Comment:Testing performed by : [address] [address] Eosinophil abs 0.1 0.0 - 0.5 K/cumm [facility] Comment:Testing performed by : [address] [address] Basophil abs 0.1 0.0 - 0.1 K/cumm [facility] Comment:Testing performed by : [address] [address] Neutrophil pct 71.4 % [facility] Comment: Interpretive Data Percent cell count reference ranges are not reported, since discordance with absolute values may lead to misinterpretation of CBC data. Current Interpretive Data was last revised on 2017. Testing performed by: [address] [address] Imm gran pct 0.5 % [facility] Comment: Interpretive Data Percent cell count reference ranges are not reported, since discordance with absolute values may lead to misinterpretation of CBC data. Current Interpretive Data was last revised on 2017. Testing performed by: [address] [address] Lymphocyte pct 16.4 % [facility] Comment: Interpretive Data Percent cell count reference ranges are not reported, since discordance with absolute values may lead to misinterpretation of CBC data. Current Interpretive Data was last revised on 2017. Testing performed by: [address] [address] Monocyte pct 9.5 % [facility] Comment: Interpretive Data Percent cell count reference ranges are not reported, since discordance with absolute values may lead to misinterpretation of CBC data. Current Interpretive Data was last revised on 2017. Testing performed by: [address] [address] Eosinophil pct 1.5 % [facility] Comment: Interpretive Data Percent cell count reference ranges are not reported, since discordance with absolute values may lead to misinterpretation of CBC data. Current Interpretive Data was last revised on 2017. Testing performed by: [address] [address] Basophil pct 0.7 % [facility] [place] Comment: Interpretive Data Percent cell count reference ranges are not reported, since discordance with absolute values may lead to misinterpretation of CBC data. Current Interpretive Data was last revised on 2017. Testing performed by: [address] [address] Blood 05/14/2024 4:57 AM [employer] 05/14/2024 8:52 AM [employer] us Notinfile Unknown LAB BLOOD ORDERABLES Final Res ult [facility] [place] [address] [facility] Department [place] [address] * (ABNORMAL) CBC with auto differential (05/14/2024 4:57 AM [employer]) WBC 8.7 3.8 - 9.9 K/cumm [facility] [place] Comment:Testing performed by : [address] [address] Hgb 12.6(L) 13.0 - 17.5 g/dL [facility] Comment:Testing performed by : [address] [address] Hct 37.1(L) 38.9 - 50.3 % [facility] Comment:Testing performed by : [address] [address] Plt 221 150 - 400 K/cumm [facility] [place] Comment:Testing performed by : [address] [address] MPV 10.8 9.1 - 12.3 fL [facility] [place] Comment:Testing performed by : [address] [address] RBC 4.09(L) 4.30 - 5.80 M/cumm [facility] Comment:Testing performed by : [address] [address] MCV 90.7 81.3 - 96.4 fL [facility] Comment:Testing performed by : [address] [address] MCH 30.8 27.1 - 33.3 pg [facility] Comment:Testing performed by : [address] [address] MCHC 34.0 32.3 - 35.7 g/dL [facility] Comment:Testing performed by : [address] [address] RDW CV 13.3 11.1 - 14.9 % [facility] Comment:Testing performed by : [address] [address] RDW SD 44.0 35.7 - 48.1 fL [facility] Comment:Testing performed by : [address] [address] NRBC abs 0.00 0.00 - 0.01 K/cumm [facility] Comment:Testing performed by : [address] [address] Blood 05/14/2024 4:57 AM [employer] 05/14/2024 8:52 AM [employer] us Notinfile Unknown LAB BLOOD ORDERABLES Final Res ult [facility] [address] [facility] Department of Laboratories [place], [place] [id number] * (ABNORMAL) Basic metabolic panel (05/14/2024 4:57 AM [employer]) Sodium 140 135 - 145 mmol/L [facility] Comment:Testing performed by : [address] [address] Potassium, pl 4.3 3.3 - 4.9 mmol/L [facility] Comment:Testing performed by : [address] [address] Chloride 104 97 - 110 mmol/L [facility] [place] Comment:Testing performed by : [address] [address] CO2 25 22 - 32 mmol/L [facility] [place] Comment:Testing performed by : [address] [address] Anion gap 11 2 - 15 mmol/L [facility] [place] Comment:Testing performed by : [address] [address] BUN 16 6 - 25 mg/dL [facility] Comment:Testing performed by : [address] [address] Creatinine 0.60(L) 0.80 - 1.30 mg/dL [facility] Comment:Testing performed by : [address] [address] Glucose 125 70 - 199 mg/dL [facility] [...] was last revised 2022. Testing performed by: [address] [address] Calcium 9.2 8.5 - 10.3 mg/dL [facility] Comment:Testing performed by : [address] [address] Blood 05/14/2024 4:57 AM [employer] 05/14/2024 8:52 AM [employer] us Notinfile Unknown LAB BLOOD ORDERABLES Final Res ult [facility] [place] [address] [facility] Department [place] [address] * eGFR (05/12/2024 4:45 AM [employer]) eGFR >90 >=60 mL/min/1. 73 m2 [facility] [...] was last reviewed 2021. Testing performed by: [address] [address] Blood 05/12/2024 4:45 AM [employer] 05/12/2024 9:19 AM [employer] us Notinfile Unknown LAB BLOOD ORDERABLES Final Res ult [facility] [address] [facility] Department [place] [address] * (ABNORMAL) Differential, auto (05/12/2024 4:45 AM [employer]) Neutrophil abs 7.5(H) 1.5 - 6.5 K/cumm [facility] Comment:Testing performed by : [address] [address] Imm gran abs 0.0 0.0 - 0.1 K/cumm [facility] Comment:Testing performed by : [address] [address] Lymphocyte abs 1.3 0.8 - 3.3 K/cumm [facility] Comment:Testing performed by : [address] [address] Monocyte abs 1.0(H) 0.2 - 0.8 K/cumm [facility] Comment:Testing performed by : [address] [address] Eosinophil abs 0.1 0.0 - 0.5 K/cumm [facility] Comment:Testing performed by : [address] [address] Basophil abs 0.1 0.0 - 0.1 K/cumm [facility] Comment:Testing performed by : [address] [address] Neutrophil pct 75.5 % [facility] Comment: Interpretive Data Percent cell count reference ranges are not reported, since discordance with absolute values may lead to misinterpretation of CBC data. Current Interpretive Data was last revised on 2017. Testing performed by: [address] [address] Imm gran pct 0.4 % [facility] Comment: Interpretive Data Percent cell count reference ranges are not reported, since discordance with absolute values may lead to misinterpretation of CBC data. Current Interpretive Data was last revised on 2017. Testing performed by: [address] [address] Lymphocyte pct 12.7 % [facility] Comment: Interpretive Data Percent cell count reference ranges are not reported, since discordance with absolute values may lead to misinterpretation of CBC data. Current Interpretive Data was last revised on 2017. Testing performed by: [address] [address] Monocyte pct 9.8 % [facility] Comment: Interpretive Data Percent cell count reference ranges are not reported, since discordance with absolute values may lead to misinterpretation of CBC data. Current Interpretive Data was last revised on 2017. Testing performed by: [address] [address] Eosinophil pct 1.1 % [facility] Comment: Interpretive Data Percent cell count reference ranges are not reported, since discordance with absolute values may lead to misinterpretation of CBC data. Current Interpretive Data was last revised on 2017. Testing performed by: [address] [address] Basophil pct 0.5 % [facility] Comment: Interpretive Data Percent cell count reference ranges are not reported, since discordance with absolute values may lead to misinterpretation of CBC data. Current Interpretive Data was last revised on 2017. Testing performed by: [address] [address] Blood 05/12/2024 4:45 AM [employer] 05/12/2024 9:19 AM [employer] us Notinfile Unknown LAB BLOOD ORDERABLES Final Res ult [facility] [address] [facility] Department [place] [address] * (ABNORMAL) CBC with auto differential (05/12/2024 4:45 AM [employer]) WBC 10.0(H) 3.8 - 9.9 K/cumm [facility] Comment:Testing performed by : [address] [address] Hgb 12.7(L) 13.0 - 17.5 g/dL [facility] Comment:Testing performed by : [address] [address] Hct 37.3(L) 38.9 - 50.3 % [facility] Comment:Testing performed by : [address] [address] Plt 217 150 - 400 K/cumm [facility] Comment:Testing performed by : [address] [address] MPV 11.0 9.1 - 12.3 fL [facility] Comment:Testing performed by : [address] [address] RBC 4.10(L) 4.30 - 5.80 M/cumm [facility] Comment:Testing performed by : [address] [address] MCV 91.0 81.3 - 96.4 fL [facility] Comment:Testing performed by : [address] [address] MCH 31.0 27.1 - 33.3 pg [facility] Comment:Testing performed by : [address] [address] MCHC 34.0 32.3 - 35.7 g/dL [facility] [place] Comment:Testing performed by : [address] [address] RDW CV 13.7 11.1 - 14.9 % [facility] Comment:Testing performed by : [address] [address] RDW SD 45.6 35.7 - 48.1 fL [facility] Comment:Testing performed by : [address] [address] NRBC abs 0.00 0.00 - 0.01 K/cumm [facility] Comment:Testing performed by : [address] [address] Blood 05/12/2024 4:45 AM [employer] 05/12/2024 9:19 AM [employer] us Notinfile Unknown LAB BLOOD ORDERABLES Final Res ult [facility] [address] [facility] Department [place] [address] * (ABNORMAL) Basic metabolic panel (05/12/2024 4:45 AM [employer]) Sodium 138 135 - 145 mmol/L [facility] Comment:Testing performed by : [address] [address] Potassium, pl 3.9 3.3 - 4.9 mmol/L [facility] Comment:Testing performed by : [address] [address] Chloride 102 97 - 110 mmol/L [facility] [place] Comment:Testing performed by : [address] [address] CO2 26 22 - 32 mmol/L [facility] [place] Comment:Testing performed by : [address] [address] Anion gap 10 2 - 15 mmol/L [facility] [place] Comment:Testing performed by : [address] [address] BUN 17 6 - 25 mg/dL [facility] Comment:Testing performed by : [address] [address] Creatinine 0.60(L) 0.80 - 1.30 mg/dL [facility] [place] Comment:Testing performed by : [address] [address] Glucose 153 70 - 199 mg/dL [facility] [...] was last revised 2022. Testing performed by: [address] [address] Calcium 9.2 8.5 - 10.3 mg/dL [facility] Comment:Testing performed by : [address] [address] Blood 05/12/2024 4:45 AM [employer] 05/12/2024 9:19 AM [employer] us Notinfile Unknown LAB BLOOD ORDERABLES Final Res ult [facility] [address] [facility] Department [place] [address] * Influenza A/B, RSV, and COVID-19 PCR Nasopharyngeal (05/09/2024 11:20 AM [employer]) Pathologist [facility] COVID-19 RNA Negative Negative [facility] Comment:Testing performed by : [address] [address] Influenza A RNA Negative Negative [facility] Comment:Testing performed by : [address] [address] Influenza B RNA Negative Negative [facility] Comment:Testing performed by : [address] [address] RSV RNA Negative Negative [facility] Comment: Interpretive data: Testing performed by [facility]. This test is performed using the [employer] Xpert Xpress CoV-2/Flu/RSV plus assay. This is a multiplex, real-time reverse transcriptase PCR assay intended for the qualitative detection of nucleic acid from SARS-CoV-2, influenza A, influenza B, and respiratory syncytial virus. This assay has been cleared by the [place] Food and Drug administration. The performance characteristics have been verified by the [facility]. Results must be considered in the clinical context, and a negative result does not rule out infection. Interpretive Data last revised 2023 Testing performed by: [address] [address] Nasopharyngeal 05/09/2024 11 :20 AM [employer] 05/09/2024 12:30 PM [employer] us Notinfile Unknown LAB MICROBIOLOGY - GENERAL ORD ERABLES Final Result [facility] Department [place] [address] * (ABNORMAL) Differential, auto (05/06/2024 4:57 AM SPECIAL OFFICER AUTOMAT) Neutrophil abs 6.6(H) 1.5 - 6.5 K/cumm [facility] Comment:Testing performed by : [address] [address] Imm gran abs 0.1 0.0 - 0.1 K/cumm [facility] Comment:Testing performed by : [address] [address] Lymphocyte abs 1.6 0.8 - 3.3 K/cumm [facility] Comment:Testing performed by : [address] [address] Monocyte abs 0.6 0.2 - 0.8 K/cumm [facility] Comment:Testing performed by : [address] [address] Eosinophil abs 0.1 0.0 - 0.5 K/cumm [facility] Comment:Testing performed by : [address] [address] Basophil abs 0.1 0.0 - 0.1 K/cumm [facility] Comment:Testing performed by : [address] [address] Neutrophil pct 72.1 % [facility] Comment: Interpretive Data Percent cell count reference ranges are not reported, since discordance with absolute values may lead to misinterpretation of CBC data. Current Interpretive Data was last revised on 2017. Testing performed by: [address] [address] Imm gran pct 1.0 % [facility] Comment: Interpretive Data Percent cell count reference ranges are not reported, since discordance with absolute values may lead to misinterpretation of CBC data. Current Interpretive Data was last revised on 2017. Testing performed by: [address] [address] Lymphocyte pct 17.9 % [facility] Comment: Interpretive Data Percent cell count reference ranges are not reported, since discordance with absolute values may lead to misinterpretation of CBC data. Current Interpretive Data was last revised on 2017. Testing performed by: [address] [address] Monocyte pct 7.0 % [facility] Comment: Interpretive Data Percent cell count reference ranges are not reported, since discordance with absolute values may lead to misinterpretation of CBC data. Current Interpretive Data was last revised on 2017. Testing performed by: [address] [address] Eosinophil pct 1.5 % [facility] Comment: Interpretive Data Percent cell count reference ranges are not reported, since discordance with absolute values may lead to misinterpretation of CBC data. Current Interpretive Data was last revised on 2017. Testing performed by: [address] [address] Basophil pct 0.5 % [facility] Comment: Interpretive Data Percent cell count reference ranges are not reported, since discordance with absolute values may lead to misinterpretation of CBC data. Current Interpretive Data was last revised on 2017. Testing performed by: [address] [address] Blood 05/06/2024 4:57 AM SPECIAL OFFICER AUTOMAT 05/06/2024 8:25 AM SPECIAL OFFICER AUTOMAT us Notinfile Unknown LAB BLOOD ORDERABLES Final Res ult [facility] [address] [facility] [place] [address] * (ABNORMAL) CBC with auto differential (05/06/2024 4:57 AM SPECIAL OFFICER AUTOMAT) WBC 9.2 3.8 - 9.9 K/cumm [facility] [place] Comment:Testing performed by : [address] [address] Hgb 12.1(L) 13.0 - 17.5 g/dL [facility] [place] Comment:Testing performed by : [address] [address] Hct 35.4(L) 38.9 - 50.3 % [facility] [place] Comment:Testing performed by : [address] [address] Plt 279 150 - 400 K/cumm [facility] [place] Comment:Testing performed by : [address] [address] MPV 10.2 9.1 - 12.3 fL [facility] [place] Comment:Testing performed by : [address] [address] RBC 3.91(L) 4.30 - 5.80 M/cumm [facility] [place] Comment:Testing performed by : [address] [address] MCV 90.5 81.3 - 96.4 fL [facility] [place] Comment:Testing performed by : [address] [address] MCH 30.9 27.1 - 33.3 pg [facility] [place] Comment:Testing performed by : [address] [address] MCHC 34.2 32.3 - 35.7 g/dL [facility] [place] Comment:Testing performed by : [address] [address] RDW CV 13.3 11.1 - 14.9 % [facility] [place] Comment:Testing performed by : [address] [address] RDW SD 43.6 35.7 - 48.1 fL [facility] [place] Comment:Testing performed by : [address] [address] NRBC abs 0.00 0.00 - 0.01 K/cumm [facility] [place] Comment:Testing performed by : [address] [address] Blood 05/06/2024 4:57 AM SPECIAL OFFICER AUTOMAT 05/06/2024 8:25 AM SPECIAL OFFICER AUTOMAT us Notinfile Unknown LAB BLOOD ORDERABLES Final Res ult [facility] [place] [address] [facility] Department of Laboratories [place], [place] [id number] * eGFR (05/05/2024 5:05 AM SPECIAL OFFICER AUTOMAT) eGFR >90 >=60 mL/min/1. 73 m2 [facility] [...] was last reviewed 2021. Testing performed by: [address] [address] Blood 05/05/2024 5:05 AM SPECIAL OFFICER AUTOMAT 05/05/2024 8:24 AM SPECIAL OFFICER AUTOMAT us Notinfile Unknown LAB BLOOD ORDERABLES Final Res ult [facility] [address] [facility] Department [place] [address] * (ABNORMAL) Differential, auto (05/05/2024 5:05 AM SPECIAL OFFICER AUTOMAT) Neutrophil abs 8.1(H) 1.5 - 6.5 K/cumm [facility] Comment:Testing performed by : [address] [address] Imm gran abs 0.1 0.0 - 0.1 K/cumm [facility] Comment:Testing performed by : [address] [address] Lymphocyte abs 1.5 0.8 - 3.3 K/cumm [facility] Comment:Testing performed by : [address] [address] Monocyte abs 0.7 0.2 - 0.8 K/cumm [facility] Comment:Testing performed by : [address] [address] Eosinophil abs 0.1 0.0 - 0.5 K/cumm [facility] Comment:Testing performed by : [address] [address] Basophil abs 0.0 0.0 - 0.1 K/cumm [facility] Comment:Testing performed by : [address] [address] Neutrophil pct 76.9 % [facility] Comment: Interpretive Data Percent cell count reference ranges are not reported, since discordance with absolute values may lead to misinterpretation of CBC data. Current Interpretive Data was last revised on 2017. Testing performed by: [address] [address] Imm gran pct 1.0 % [facility] Comment: Interpretive Data Percent cell count reference ranges are not reported, since discordance with absolute values may lead to misinterpretation of CBC data. Current Interpretive Data was last revised on 2017. Testing performed by: [address] [address] Lymphocyte pct 13.9 % [facility] Comment: Interpretive Data Percent cell count reference ranges are not reported, since discordance with absolute values may lead to misinterpretation of CBC data. Current Interpretive Data was last revised on 2017. Testing performed by: [address] [address] Monocyte pct 6.6 % [facility] Comment: Interpretive Data Percent cell count reference ranges are not reported, since discordance with absolute values may lead to misinterpretation of CBC data. Current Interpretive Data was last revised on 2017. Testing performed by: [address] [address] Eosinophil pct 1.2 % [facility] Comment: Interpretive Data Percent cell count reference ranges are not reported, since discordance with absolute values may lead to misinterpretation of CBC data. Current Interpretive Data was last revised on 2017. Testing performed by: [address] [address] Basophil pct 0.4 % [facility] Comment: Interpretive Data Percent cell count reference ranges are not reported, since discordance with absolute values may lead to misinterpretation of CBC data. Current Interpretive Data was last revised on 2017. Testing performed by: [address] [address] Blood 05/05/2024 5:0 5 AM SPECIAL OFFICER [employer]OMAT 05/05/2024 8:24 AM SPECIAL OFFICER AUTOMAT us Notinfile Unknown LAB BLOOD ORDERABLES Final Res ult [facility] [address] [facility] Department [place] [address] * (ABNORMAL) CBC with auto differential (05/05/2024 5:05 AM SPECIAL OFFICER AUTOMAT) [facility] Signature WBC 10.6(H) 3.8 - 9.9 K/cumm [facility] Comment:Testing performed by : [address], [address] Hgb 12.1(L) 13.0 - 17.5 g/dL [facility] Comment:Testing performed by : [address], [address] Hct 35.2(L) 38.9 - 50.3 % [facility] Comment:Testing performed by : [address], [address] Plt 291 150 - 400 K/cumm [facility] Comment:Testing performed by : [address], [address] MPV 10.1 9.1 - 12.3 fL [facility] Comment:Testing performed by : [address], [address] RBC 3.87(L) 4.30 - 5.80 M/cumm [facility] Comment:Testing performed by : [address], [address] MCV 91.0 81.3 - 96.4 fL [facility] Comment:Testing performed by : [address], [address] MCH 31.3 27.1 - 33.3 pg [facility] Comment:Testing performed by : [address], [address] MCHC 34.4 32.3 - 35.7 g/dL [facility] Comment:Testing performed by : [address], [address] RDW CV 13.3 11.1 - 14.9 % [facility] Comment:Testing performed by : [address], [address] RDW SD 43.7 35.7 - 48.1 fL [facility] Comment:Testing performed by : [address], [address] NRBC abs 0.00 0.00 - 0.01 K/cumm [facility] Comment:Testing performed by : [address] [address] Blood 05/05/2024 5:05 AM SPECIAL OFFICER AUTOMAT 05/05/2024 8:24 AM SPECIAL OFFICER AUTOMAT us Notinfile Unknown LAB BLOOD ORDERABLES Final Res ult [facility] [address] [facility] Department [place] [address] * (ABNORMAL) Basic metabolic panel (05/05/2024 5:05 AM SPECIAL OFFICER AUTOMAT) Sodium 138 135 - 145 mmol/L [facility] Comment:Testing performed by : [address] [address] Potassium, pl 4.1 3.3 - 4.9 mmol/L [facility] Comment:Testing performed by : [address] [address] Chloride 104 97 - 110 mmol/L [facility] Comment:Testing performed by : [address] [address] CO2 25 22 - 32 mmol/L [facility] Comment:Testing performed by : [address] [address] Anion gap 9 2 - 15 mmol/L [facility] Comment:Testing performed by : [address] [address] BUN 17 6 - 25 mg/dL [facility] Comment:Testing performed by : [address] [address] Creatinine 0.70(L) 0.80 - 1.30 mg/dL [facility] Comment:Testing performed by : [address] [address] Glucose 142 70 - 199 mg/dL [facility] Comment: Interpretive Data Fasting glucose >/= 126 [...] was last revised 2022. Testing performed by: [facility], [address] [place] [address]., [address] Calcium 9.2 8.5 - 10.3 mg/dL [facility] [place] Comment:Testing performed by : [facility], [address] [place] [address], [place]., [address] Blood 05/05/2024 5:05 AM SPECIAL OFFICER AUTOMAT 05/05/2024 8:24 AM SPECIAL OFFICER AUTOMAT us Notinfile Unknown LAB BLOOD ORDERABLES Final Res ult [facility] [place] [address] [facility] Department [place] [address] * CT Lung Cancer Screening (03/11/2024 1:07 PM SPECIAL OFFICER AUTOMAT) Anatomical Region Laterality Modality Chest N/A Computed Tomogra phy 03/11/2024 1:46 PM SPECIAL OFFICER AUTOMAT Impressions 03/11/2024 2:47 PM SPECIAL OFFICER AUTOMAT 1. LungRADS Category 2 (benign). Recommend Low [...] John Conte M.D. Narrative 03/11/2024 2:47 PM SPECIAL OFFICER AUTOMAT EXAMINATION: Lung cancer screening CT of the [...] an active HCV infection. HCV RNA IU/mL 3981675(H ) <15 IU/mL [facility] [...] the management of these patients (J Hepatol, 6134-2952, ). COMMENT [facility]IST[facility]ICAL RESULTS Comment: The analytical performance characteristics of this assay have been determined by [employer]. The modifications have not been cleared or approved by the FDA. This assay has been validated pursuant to the CLIA regulations and is used for clinical purposes. This test was performed using the KLAUS(R)AmpliPrep/ KLAUS(R)TaqMan(R)HCV Test,v2.0. For more information on this test, go to: http://education.[employer]ake[employer]ate/faq/EEQ10v2 (This link is being provided for informational/ educational purposes only.) 09/25/2016 4:15 PM CDT 09/27/2016 12:45 PM CDT Narrative [facility] HISTORICAL RESULTS - 09/27/2016 12:34 PM CDT 0 PERFORMING LAB: [place], [facility] [address] [address] [id number] Abhinav Cruz D.O., MPH us Historical Provider LAB MICROBIOLOGY - GENERA L ORDERABLES Final Result [facility] HISTORICAL RESULTS from Last 3 Months or Most Recently Relevant to Health Maintenance Insurance Advance Directives For more information, please contact: [phone] Documents on File Type Date Recorded Patient Seasoning Mixer Expl anation ADVANCE DIRECTIVE 03/24/2024 7:47 AM Susan r of Tower Attendant-Medical * Full Code (Latest Code Status on File) Date Activated Date Inactivated Comments 04/22/2024 5:16 AM 04/25/2024 5:38 PM * Full Code Date Activated Date Inactivated Comments 04/08/2024 9:42 PM 04/11/2024 6:32 PM * Full Code Date Activated Date Inactivated Comments 02/21/2024 12:46 AM 02/26/2024 6:04 PM Care Teams Prop Making Supervisor Relationship Specialty Start Date End Date Chani Beltran MD PhD [address] [facility] [place] [address] PCP - General 03/25/24 Hedii Fay MD [address] [place] [address] Consulting Physician Neurosurgery 04/10/24
[2024-08-03] MEDS: LACTATED RINGERS 1,000 ML 999 ML IV CONT (18:31)
[2024-08-03] MEDS: ACETAMINOPHEN 500 MG TABLET 1000 MG PO (18:31)
[2024-08-03 18:33] VITALS: BP 122/89; PULSE 108; RESP 15; O2SAT 100
[2024-08-03 18:44] LABS: Basophils Percent Auto 0.3 % (0.2-1.2); Hematocrit 41.1 % (42.0-52.0); Hemoglobin 13.7 g/dL (14.0-18.0); Immature Granulocyte Absolute 0.03 K/mm3 (0.00-0.031); Immature Granulocyte Percent A 0.3 % (0-0.5); Lymphocytes Absolute Auto 0.47 K/mm3 (0.9-3.2); Lymphocytes Percent Auto 4.8 % (18.3-44.2); Mean Corpuscular HGB Conc 33.3 g/dl (32-36); Mean Corpuscular Hemoglobin 29.5 pg (26-34); Mean Corpuscular Volume 88.6 fl (80-100); Mean Platelet Volume 10.4 fl (7.4-10.4); Monocytes Absolute Auto 0.6 K/mm3 (0.1-0.6); Monocytes Percent Auto 6.6 % (2.6-8.5); Neutrophils Absolute Auto 8.5 K/mm3 (1.3-6.7); Platelet Count Result 193 k/mm3 (150-375); Red Blood Count 4.64 M/mm3 (4.6-6.20); Red Cell Distribution Width 14.5 % (11.5-14.5); White Blood Count 9.7 K/mm3 (4.5-10.0)
[2024-08-03 18:55] LABS: Alanine Aminotransferase 22 U/L (6-50); Albumin Level 4.6 g/dL (3.5-5.1); Alkaline Phosphatase 64 U/L (38-126); Anion Gap 11 mmol/L (4-12); Aspartate Amino Transferase 26 U/L (17-59); Bilirubin,Total 3.3 mg/dL (0.2-1.3); Blood Urea Nitrogen 16 mg/dL (9-20); Calcium 9.4 mg/dL (8.4-10.2); Carbon Dioxide 27 mmol/L (22-30); Chloride 100 mmol/L (98-107); Estimated CRCL calculation 70 ml/min; Estimated Glomerular Filt Rate > 60; Glucose 149 mg/dL (65-110); Potassium 4.5 mmol/L (3.4-5.0); Sodium 138 mmol/L (137-145)
--- NOTE | 2024-08-03 19:26 | PC.NURSE ---
This tech went to pt room to inform the pt that we needed urine and that the nurse said to straight cath the pt. Pt refused straight cath. RN was notified.
[2024-08-03 19:27] VITALS: BP 124/88; PULSE 106; RESP 17; O2SAT 97
--- NOTE | 2024-08-03 19:58 | PC.NURSE ---
Spoke with pt's sister at length regarding pt not meeting criteria for admission. Sister is adamant that she is unwilling to care for patient any longer and that she was forced to take him home from the long term upon discharge. Case management was here to see pt earlier in the day. Informed the sister that case management may be able to get patient placed in a facility this week, but sister stands firm that she has no legal obligation to patient is does not care that we will need to call adult protective services if she were to abandon him as she states she is doing. She states that she has no bed for him as he ruined it today with his sweating. She states that pt can walk with a walker, but cannot get his own food and that she has to prepare, clean and disinfect the shower after he defecates in it daily. Pt states that he has no one else to stay with.
[2024-08-03 21:22] VITALS: BP 102/72; PULSE 89; RESP 16; O2SAT 93
--- NOTE | 2024-08-03 21:24 | PC.NURSE ---
Called Adult Protective Services and left message for a return call as no one was available to take the call.
--- NOTE | 2024-08-03 21:43 | ADMGEN ---
This patient, Davion Galvez, was admitted to [facility] Surg Room 322-02. Patient/family oriented to hospital policies and general routines including ID bracelet, bed and alarms, visiting hours, pain management, procedures, bathroom and other care routines, personal items, smoking policy, room service/diet, and visiting hours. Information on how to activate the Rapid Response Team has been discussed. Patient/Family are encouraged to report perceived risks to care and to ask questions if they do not understand what they are told or what they should do.
[2024-08-03 22:10] VITALS: BMI 24.8
--- NOTE | 2024-08-03 22:17 | PC.NURSE ---
for Adult Protective Services report
[2024-08-03 23:00] VITALS: BP 123/74; PULSE 84; RESP 20; TEMP 36.8; O2SAT 100
--- OUTSIDE RECORDS SUMMARY | 2024-08-03 23:01 | XMS_ITS | Encounter Summary ---
Author Organization [facility] Facility Care Team Providers Care Clinical Nursing Instructor Name Role Phone No, Physician Primary Care Provider [phone] Chani Beltran MD PhD Primary Care Provi halle Chani Beltran MD PhD Primary Care Provi halle Heidi Fay MD Unavailable [phone] Encounter Details Date Type Department Care Team (Latest Contact Info) Description 09/20/2016 Orders Only [facility] CLINCONV ProviderAna MD [address] [place] [id number] Social History Tobacco Use Types Packs/Day Years Used Date Smoking Tobacco: Never Assessed Sex and Gender Information Value Date Recorded Sex Assigned at Not on file Legal Sex Male 9:06 PM COLLECTIONS REPRESENTATIVE Gender Identity Not on file Sexual Orientation [...] COVID: Suspected 04/08/2024 04/08/2024 04/08/2024 3:31 PM COLLECTIONS REPRESENTATIVE Ring Surveillance Comment:Discharge swab not collected This [...] documented as of this encounter Care Teams Clinical Nursing Instructor Relationship Specialty Start Date End Date No, Physician PCP - General 11/27/23 12/17/23 Chani Beltran MD PhD [address] [facility] [employer] [address] [phone] [place] [address] PCP - General 12/18/23 03/24/24 Chani Beltran MD PhD [address] [place] [address] PCP - General 03/25/24 Heidi Fay MD [address] [place] [address] Consulting Physician Neurosurgery 04/10/24 documented as of this encounter
--- OUTSIDE RECORDS SUMMARY | 2024-08-03 23:01 | XMS_ITS | Encounter Summary ---
Author Organization [facility] Healthcare Address [address] [place] [address] Care Team Providers Care Ent Consultant Name Role Phone Chani Beltran MD PhD Primary Care Provi halle Chani Beltran MD PhD Primary Care Provi halle Heidi Fay MD Unavailable [phone] Encounter Details Date Type Department Care Team (Late st Contact Info) Description 02/14/2024 Telephone [facility] [address] [place] [address] Breonna Rose, RT Social History [...] on file Legal Sex Male 9:06 PM WARM IN Gender Identity Not on file Sexual Orientation [...] COVID: Suspected 04/08/2024 04/08/2024 04/08/2024 3:31 PM WARM IN Ring Surveillance Comment:Discharge swab not collected This [...] documented as of this encounter Care Teams Ent Consultant Relationship Specialty Start Date End Date Chani Beltran MD PhD One [facility] [address] [phone] [place] [address] PCP - General 12/18/23 03/24/24 Chani Beltran MD PhD [address] [facility] [place] [address] PCP - General 03/25/24 Heidi Fay MD [address] [place] [address] Consulting Physician Neurosurgery 04/10/24 documented as of this encounter
--- OUTSIDE RECORDS SUMMARY | 2024-08-03 23:01 | XMS_ITS | Clinical Summary ---
Author Organization [facility] Address [address] [place] [address] Care Team Providers Care Automatic Silk Screen Printer Name Role Phone None, Provider MD Primary [...] uit: Not Asked; Counseling Given: Not Answered [facility] Utilities Answer Date Recorded In the [...] file 02/17/2024 How often do you attend amish or oriental orthodox serv ices? Never 02/17/2024 Do you belong to any clubs o r organizations such as amish groups, unions, fraternal or athletic groups, or [...] any time in the past 12 m [facility], were you homeless or living in a care home (including now)? Yes 02/17/2024 Sex and Gender [...] 3:25 AM 02/21/2024 2:12 AM Care Teams Automatic Silk Screen Printer Relationship Specialty Start Date End Date None, Provider, PCP - General UNKNOWN PHYSICIAN SPECIALTY 02/16/24
--- OUTSIDE RECORDS SUMMARY | 2024-08-03 23:01 | XMS_ITS | Continuity of Care Document ---
Author Organization [facility] Address [address] [place] [address] Phone Care Team Providers Care Receiving Lead Name Role Phone Shayla Chatterjee Unavailable Unavailable Advance Directives Directive Yes / No Effective Date File Name No Information Encounters Encounter Description Practice Location Reason(s) For Visit Diagnoses Date Provider Providers Copied on Encounter [facility], [address], [place], [place], [id number], [place] tel:[phone] [facility] [place] No Information Jul- 1-200 0 Shena Mcguire. [address] [place] , [address], [place], [address], [place]. tel:[phone] Family History Family Member Type Diagnosis Age At Onset No Information Payers Payer name Insurance type Covered libertarian ID Authoriza tion(s) [employer] SOI CI [id number] Social History Type Description Quantity Date Captured [...]
--- OUTSIDE RECORDS SUMMARY | 2024-08-03 23:01 | XMS_ITS | Clinical Summary ---
Author Organization [facility] Address [address] [place] [address] Care Team Providers Care Bomb Squad Officer Name Role Phone Chani Beltran MD PhD Primary Care Provi halle Heidi Fay MD Unavailable [phone] Allergies Active Allergy Reactions Criticality Noted Date [...] 04/10/2024 Assessment & Plan (04/10/2024 2:29 PM SALES COMPENSATION ANALYST): Does not wish to return to current ECF. CC working with sister to find new ECF. Have decided to return to previous ECF- everyone was really nice just overworked Central cord syndrome, subsequent encounter 07/2023 Assessment & Plan (04/11/2024 9:53 AM SALES COMPENSATION ANALYST): P/w worsening falls, numbness in all [...] 04/08/2024 Assessment & Plan (04/10/2024 10:01 AM SALES COMPENSATION ANALYST): His sister reports that he has [...] 03/04/2024 Assessment & Plan (06/05/2024 3:40 PM SALES COMPENSATION ANALYST): Tmax 20/23, +FHx (sister, father), angles [...] 02/04/2024 Assessment & Plan (04/08/2024 10:11 PM SALES COMPENSATION ANALYST): Reports quitting tobacco. - congratulated patient [...] being bit (currently lives in [facility]). Is worried he has kaycee but exam [...] ophthalmology. 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 and [...] Department Care Team Description 07/21/2024 Orders Only [facility] [address] [place] [address] Office [address] [place] [address] Heidi Fay MD Osteoarthritis of cervical spine, unspecified spinal osteoarthritis complication status (Primary Dx); History of spinal cord injury 07/17/2024 2:45 PM CDT Office Visit [facility] [address] [place] [address] Medical Office Building [address] [place] [phone] Heidi Fay MD Osteoarthritis of cervical spine, unspecified spinal osteoarthritis complication status 07/17/2024 2:15 PM CDT - 07/17/2024 11:59 PM CDT Hospital Encounter [facility] [address] [place] [address] [address] [place] [phone] Osteoarthritis of cervical spine, unspecified spinal osteoarthritis complication status Discharge Disposition: Discharge to home or self care 07/10/2024 Orders Only [facility] [address] [place] [address] Medical Office Building [address] [place] [address] Heidi Fay MD Osteoarthritis of cervical spine, unspecified spinal osteoarthritis complication status (Primary Dx) 07/09/2024 Telephone [facility] [address] [place] [address] Cece Boyce RN 07/09/2024 Orders Only [facility] [address] [facility] [address] [facility] [address] [place] [phone] Heidi Fay MD Osteoarthritis of cervical spine, unspecified spinal osteoarthritis complication status (Primary Dx) 06/05/2024 2:30 PM SALES COMPENSATION ANALYST Office Visit [facility] [address] [place] [address] 1[address] [place] [phone] Primary open angle glaucoma (POAG) of both eyes, severe stage (Primary Dx) 06/02/2024 2:45 PM SALES COMPENSATION ANALYST Office Visit [facility] [address] [place] [phone] Heidi Fay MD Osteoarthritis of cervical spine, unspecified spinal osteoarthritis complication status 06/02/2024 2:27 PM SALES COMPENSATION ANALYST - 06/02/2024 11:59 PM SALES COMPENSATION ANALYST Hospital Encounter [facility] [address] [place] [phone] Osteoarthritis of cervical spine, unspecified spinal osteoarthritis complication status Discharge Disposition: Discharge to home or self care 06/02/2024 Orders Only [facility] [address] [facility] [address] [facility] [address] [place] [phone] Heidi Fay MD Osteoarthritis of cervical spine, unspecified spinal osteoarthritis complication status (Primary Dx) 05/30/2024 Orders Only [facility] [address] [place] [address] Office [facility] [address] [place] [phone] Heidi Fay MD Osteoarthritis of cervical spine, unspecified spinal osteoarthritis complication status (Primary Dx) 05/27/2024 Orders Only [facility] [address] [place] [address] Janette Mas MD Foot callus (Primary Dx) 05/14/2024 Orders Only [facility] [phone] Unknown, Notinfile 05/12/2024 Orders Only [facility] [phone] Unknown, Notinfile 05/09/2024 Orders Only [facility] [phone] Unknown, Notinfile 05/06/2024 Orders Only [facility] [phone] Unknown, Notinfile 05/05/2024 Orders Only [facility] [phone] Unknown, Notinfile from Last 3 Months Immunizations Immunization Administration Dates Next Due COVID-19 mRNA (Quisk) 0.3 m L (30 mcg) vaccine (12 [...] arthritis Sister 1 Allergies Sister 2 Layla Tboi Asthma Sister 2 Layla Tobi Autoimmune disease [...] materials from doctor or pharmacy Often 03/25/2024 [facility] Utilities Answer Date Recorded In the [...] often do you attend chur ch or church services? Never 04/24/2024 Do you belong to any clubs o r organizations such as mormon groups, unions, fraternal or athletic groups, or [...] time in the past 12 m [facility], were you homeless or living in a retirement (including now)? No 04/24/2024 Personal Safety Answer Date Recorded Have you ever been in or are you currently in a harmful physical or emotional relationship or is someone making you feel afraid or unsafe? Denies 04/21/2024 Sex and Gender Information Value Date Recorded Sex Assigned at Not on file Legal Sex Male 9:06 PM SALES COMPENSATION ANALYST Gender Identity Not on file Sexual Orientation Not on file Obstetrics History Last Filed Vital Signs Vital Sign Reading Time Taken Comments Blood Pressure 106/60 04/25/2024 11:26 AM SALES COMPENSATION ANALYST Pulse 95 04/25/2024 11:26 AM SALES COMPENSATION ANALYST Temperature 37.7 C (99.9 F) 04/25/2024 11:26 AM SALES COMPENSATION ANALYST Respiratory Rate 17 04/25/2024 11:26 AM SALES COMPENSATION ANALYST Oxygen Saturation 99% 04/25/2024 11:26 AM SALES COMPENSATION ANALYST Inhaled Oxygen Concentration - - Weight [...] this topic Medical Devices Implanted Type Area Beauty Culturist Apprentice Device Identifier Shelf Expiration Date Model / Serial / Lot [employer] Centerpiece 10mm Multiple Hole Open Door Precut Kickstand Color 853-010 - [id number] Implanted:Qty: 3 on 04/21/2024 by Heidi Fay MD at [facility] N/A: Spine Cervical [employer] 853-010 / / [employer] Spinal Screw Anterior Cervical Odlp Solid 2.0x5mm [id number] - [id number] Implanted:Qty: 5 on 04/21/2024 by Heidi Fay MD at [facility] N/A: Spine Cervical [employer] [id number] / / [employer] Spinal Screw Anterior Cervical Odlp Solid 2.0x7mm [id number] - [id number] Implanted:Qty: 7 on 04/21/2024 by Heidi Fay MD at [facility] N/A: Spine Cervical [employer] [id number] / / Procedures Procedure Name Priority Date/Time Associated Diagnosis Comments XR SPINE CERVICAL 2 OR 3 VIEWS Schedule Routine, Read Routine (OP Routine) 07/17/2024 3:14 PM CDT Osteoarthritis of cervical spine, unspecified spinal osteoarthritis complication status LORENZO VISUAL FIELD - OU - BOTH EYES Routine 06/05/2024 3:39 PM SALES COMPENSATION ANALYST Primary open angle glaucoma (POAG) of both eyes, severe stage XR SPINE CERVICAL 2 OR 3 VIEWS Schedule Routine, Read Routine (OP Routine) 06/02/2024 2:39 PM SALES COMPENSATION ANALYST Osteoarthritis of cervical spine, unspecified spinal osteoarthritis complication status EGFR Routine 05/14/2024 4:57 AM SALES COMPENSATION ANALYST BASIC METABOLIC PANEL Routine 05/14/2024 4:57 AM SALES COMPENSATION ANALYST DIFFERENTIAL AUTO Routine 05/14/2024 4:5 7 AM SALES COMPENSATION ANALYST CBC WITH AUTO DIFFERENTIAL Routine 05/14/2024 4:57 AM SALES COMPENSATION ANALYST EGFR Routine 05/12/2024 4:45 AM SALES COMPENSATION ANALYST BASIC METABOLIC PANEL Routine 05/12/2024 4:45 AM SALES COMPENSATION ANALYST DIFFERENTIAL AUTO Routine 05/12/2024 4:4 5 AM SALES COMPENSATION ANALYST CBC WITH AUTO DIFFERENTIAL Routine 05/12/2024 4:45 AM SALES COMPENSATION ANALYST INFLUENZA A/B, RSV, AND COVID-19 PCR STAT 05/09/2024 11:20 AM SALES COMPENSATION ANALYST DIFFERENTIAL AUTO Routine 05/06/2024 4:5 7 AM SALES COMPENSATION ANALYST CBC WITH AUTO DIFFERENTIAL Routine 05/06/2024 4:57 AM SALES COMPENSATION ANALYST EGFR Routine 05/05/2024 5:05 AM SALES COMPENSATION ANALYST BASIC METABOLIC PANEL Routine 05/05/2024 5:05 AM SALES COMPENSATION ANALYST DIFFERENTIAL AUTO Routine 05/05/2024 5:0 5 AM SALES COMPENSATION ANALYST CBC WITH AUTO DIFFERENTIAL Routine 05/05/2024 5:05 AM SALES COMPENSATION ANALYST CT LUNG CANCER SCREENING Schedule Routine, Read Routine (OP Routine) 03/11/2024 1:07 PM SALES COMPENSATION ANALYST Personal history of nicotine dependence HEPATITIS [...] OU - Both Eyes (06/05/2024 3:39 PM SALES COMPENSATION ANALYST) Pattern Deviation OD 7.57 dB CONTINUUM Mean Deviation OD -9.74 dB CONTINUUM Anatomical Region Laterality Modality Head Visual Field Narrative 06/05/2024 3:39 PM SALES COMPENSATION ANALYST Right Eye Fixation was borderline. Cooperation was good. Reliability was good. Foveal threshold was normal. Mean Deviation was -9.74 dB. Pattern Deviation was 7.57 dB. Notes OD: superior and inferior nasal arcuates OS: dense superior altitudinal defect, inferior arcuate Linda Nguyen MD OPH VISUAL FIELD Final Result * XR Spine Cervical 2 or 3 Views (06/02/2024 2:39 PM SALES COMPENSATION ANALYST) Anatomical Region Laterality Modality Spine N/A Computed Radiogr aphy 06/02/2024 2:46 PM SALES COMPENSATION ANALYST Impressions 06/02/2024 2:46 PM SALES COMPENSATION ANALYST 1. Drain removal following C3 laminectomy and C4-C6 laminoplasties. Electronically signed by: Ghassan Benitez M.D. Narrative 06/02/2024 2:46 PM SALES COMPENSATION ANALYST EXAMINATION: XR SPINE CERVICAL 2 OR [...] Resul t * eGFR (05/14/2024 4:57 AM SALES COMPENSATION ANALYST) eGFR >90 >=60 mL/min/1. 73 m2 [...] was last reviewed 2021. Testing performed by: [address] [address] Blood 05/14/2024 4:57 AM SALES COMPENSATION ANALYST 05/14/2024 8:52 AM SALES COMPENSATION ANALYST us Notinfile Unknown LAB BLOOD ORDERABLES Final Res ult [facility] [address] [facility] [place] [address] * Differential, auto (05/14/2024 4:57 AM SALES COMPENSATION ANALYST) Neutrophil abs 6.2 1.5 - 6.5 K/cumm [facility] Comment:Testing performed by : [address] [address] Imm gran abs 0.0 0.0 - 0.1 K/cumm [facility] [place] Comment:Testing performed by : [address] [address] Lymphocyte abs 1.4 0.8 - 3.3 K/cumm [facility] [place] Comment:Testing performed by : [address] [address] Monocyte abs 0.8 0.2 - 0.8 K/cumm [facility] Comment:Testing performed by : [address] [address] Eosinophil abs 0.1 0.0 - 0.5 K/cumm [facility] Comment:Testing performed by : [address] [address] Basophil abs 0.1 0.0 - 0.1 K/cumm [facility] Comment:Testing performed by : [address] [address] Neutrophil pct 71.4 % [facility] Comment: Interpretive Data Percent cell count reference ranges are not reported, since discordance with absolute values may lead to misinterpretation of CBC data. Current Interpretive Data was last revised on 2017. Testing performed by: [address] [address] Imm gran pct 0.5 % [facility] Comment: Interpretive Data Percent cell count reference ranges are not reported, since discordance with absolute values may lead to misinterpretation of CBC data. Current Interpretive Data was last revised on 2017. Testing performed by: [address] [address] Lymphocyte pct 16.4 % [facility] Comment: Interpretive Data Percent cell count reference ranges are not reported, since discordance with absolute values may lead to misinterpretation of CBC data. Current Interpretive Data was last revised on 2017. Testing performed by: [address] [address] Monocyte pct 9.5 % [facility] Comment: Interpretive Data Percent cell count reference ranges are not reported, since discordance with absolute values may lead to misinterpretation of CBC data. Current Interpretive Data was last revised on 2017. Testing performed by: [address] [address] Eosinophil pct 1.5 % [facility] Comment: Interpretive Data Percent cell count reference ranges are not reported, since discordance with absolute values may lead to misinterpretation of CBC data. Current Interpretive Data was last revised on 2017. Testing performed by: [address] [address] Basophil pct 0.7 % [facility] [place] Comment: Interpretive Data Percent cell count reference ranges are not reported, since discordance with absolute values may lead to misinterpretation of CBC data. Current Interpretive Data was last revised on 2017. Testing performed by: [address] [address] Blood 05/14/2024 4:57 AM SALES COMPENSATION ANALYST 05/14/2024 8:52 AM SALES COMPENSATION ANALYST us Notinfile Unknown LAB BLOOD ORDERABLES Final Res ult [facility] [place] [address] [facility] [place] [address] * (ABNORMAL) CBC with auto differential (05/14/2024 4:57 AM SALES COMPENSATION ANALYST) WBC 8.7 3.8 - 9.9 K/cumm [facility] [place] Comment:Testing performed by : [address] [address] Hgb 12.6(L) 13.0 - 17.5 g/dL [facility] [place] Comment:Testing performed by : [address] [address] Hct 37.1(L) 38.9 - 50.3 % [facility] [place] Comment:Testing performed by : [address] [address] Plt 221 150 - 400 K/cumm [facility] [place] Comment:Testing performed by : [address] [address] MPV 10.8 9.1 - 12.3 fL [facility] [place] Comment:Testing performed by : [address] [address] RBC 4.09(L) 4.30 - 5.80 M/cumm [facility] [place] Comment:Testing performed by : [address] [address] MCV 90.7 81.3 - 96.4 fL [facility] [place] Comment:Testing performed by : [address] [address] MCH 30.8 27.1 - 33.3 pg [facility] [place] Comment:Testing performed by : [address] [address] MCHC 34.0 32.3 - 35.7 g/dL [facility] [place] Comment:Testing performed by : [address] [address] RDW CV 13.3 11.1 - 14.9 % [facility] [place] Comment:Testing performed by : [address] [address] RDW SD 44.0 35.7 - 48.1 fL [facility] [place] Comment:Testing performed by : [address] [address] NRBC abs 0.00 0.00 - 0.01 K/cumm [facility] [place] Comment:Testing performed by : [address] [address] Blood 05/14/2024 4:57 AM SALES COMPENSATION ANALYST 05/14/2024 8:52 AM SALES COMPENSATION ANALYST us Notinfile Unknown LAB BLOOD ORDERABLES Final Res ult [facility] [address] [facility] [place], [place] [id number] * (ABNORMAL) Basic metabolic panel (05/14/2024 4:57 AM SALES COMPENSATION ANALYST) Sodium 140 135 - 145 mmol/L [facility] [place] Comment:Testing performed by : [address] [address] Potassium, pl 4.3 3.3 - 4.9 mmol/L [facility] [place] Comment:Testing performed by : [address] [address] Chloride 104 97 - 110 mmol/L [facility] [place] Comment:Testing performed by : [address] [address] CO2 25 22 - 32 mmol/L [facility] [place] Comment:Testing performed by : [address] [address] Anion gap 11 2 - 15 mmol/L [facility] [place] Comment:Testing performed by : [address] [address] BUN 16 6 - 25 mg/dL [facility] Comment:Testing performed by : [address] [address] Creatinine 0.60(L) 0.80 - 1.30 mg/dL [facility] Comment:Testing performed by : [address] [address] Glucose 125 70 - 199 mg/dL [facility] [...] was last revised 2022. Testing performed by: [address] [address] Calcium 9.2 8.5 - 10.3 mg/dL [facility] Comment:Testing performed by : [address] [address] Blood 05/14/2024 4:57 AM SALES COMPENSATION ANALYST 05/14/2024 8:52 AM SALES COMPENSATION ANALYST us Notinfile Unknown LAB BLOOD ORDERABLES Final Res ult [facility] [place] [address] [facility] [place] [address] * eGFR (05/12/2024 4:45 AM SALES COMPENSATION ANALYST) eGFR >90 >=60 mL/min/1. 73 m2 [...] was last reviewed 2021. Testing performed by: [address] [address] Blood 05/12/2024 4:45 AM SALES COMPENSATION ANALYST 05/12/2024 9:19 AM SALES COMPENSATION ANALYST us Notinfile Unknown LAB BLOOD ORDERABLES Final Res ult [facility] [address] [facility] [place] [address] * (ABNORMAL) Differential, auto (05/12/2024 4:45 AM SALES COMPENSATION ANALYST) Neutrophil abs 7.5(H) 1.5 - 6.5 K/cumm [facility] Comment:Testing performed by : [address] [address] Imm gran abs 0.0 0.0 - 0.1 K/cumm [facility] Comment:Testing performed by : [address] [address] Lymphocyte abs 1.3 0.8 - 3.3 K/cumm [facility] Comment:Testing performed by : [address] [address] Monocyte abs 1.0(H) 0.2 - 0.8 K/cumm [facility] Comment:Testing performed by : [address] [address] Eosinophil abs 0.1 0.0 - 0.5 K/cumm [facility] Comment:Testing performed by : [address] [address] Basophil abs 0.1 0.0 - 0.1 K/cumm [facility] Comment:Testing performed by : [address] [address] Neutrophil pct 75.5 % [facility] Comment: Interpretive Data Percent cell count reference ranges are not reported, since discordance with absolute values may lead to misinterpretation of CBC data. Current Interpretive Data was last revised on 2017. Testing performed by: [address] [address] Imm gran pct 0.4 % [facility] Comment: Interpretive Data Percent cell count reference ranges are not reported, since discordance with absolute values may lead to misinterpretation of CBC data. Current Interpretive Data was last revised on 2017. Testing performed by: [address] [address] Lymphocyte pct 12.7 % [facility] Comment: Interpretive Data Percent cell count reference ranges are not reported, since discordance with absolute values may lead to misinterpretation of CBC data. Current Interpretive Data was last revised on 2017. Testing performed by: [address] [address] Monocyte pct 9.8 % [facility] Comment: Interpretive Data Percent cell count reference ranges are not reported, since discordance with absolute values may lead to misinterpretation of CBC data. Current Interpretive Data was last revised on 2017. Testing performed by: [address] [address] Eosinophil pct 1.1 % [facility] Comment: Interpretive Data Percent cell count reference ranges are not reported, since discordance with absolute values may lead to misinterpretation of CBC data. Current Interpretive Data was last revised on 2017. Testing performed by: [address] [address] Basophil pct 0.5 % [facility] Comment: Interpretive Data Percent cell count reference ranges are not reported, since discordance with absolute values may lead to misinterpretation of CBC data. Current Interpretive Data was last revised on 2017. Testing performed by: [address] [address] Blood 05/12/2024 4:45 AM SALES COMPENSATION ANALYST 05/12/2024 9:19 AM SALES COMPENSATION ANALYST us Notinfile Unknown LAB BLOOD ORDERABLES Final Res ult [facility] [address] [facility] [place] [address] * (ABNORMAL) CBC with auto differential (05/12/2024 4:45 AM SALES COMPENSATION ANALYST) WBC 10.0(H) 3.8 - 9.9 K/cumm [facility] Comment:Testing performed by : [address] [address] Hgb 12.7(L) 13.0 - 17.5 g/dL [facility] Comment:Testing performed by : [address] [address] Hct 37.3(L) 38.9 - 50.3 % [facility] Comment:Testing performed by : [address] [address] Plt 217 150 - 400 K/cumm [facility] Comment:Testing performed by : [address] [address] MPV 11.0 9.1 - 12.3 fL [facility] Comment:Testing performed by : [address] [address] RBC 4.10(L) 4.30 - 5.80 M/cumm [facility] Comment:Testing performed by : [address] [address] MCV 91.0 81.3 - 96.4 fL [facility] Comment:Testing performed by : [address] [address] MCH 31.0 27.1 - 33.3 pg [facility] [place] Comment:Testing performed by : [address] [address] MCHC 34.0 32.3 - 35.7 g/dL [facility] [place] Comment:Testing performed by : [address] [address] RDW CV 13.7 11.1 - 14.9 % [facility] Comment:Testing performed by : [address] [address] RDW SD 45.6 35.7 - 48.1 fL [facility] [place] Comment:Testing performed by : [address] [address] NRBC abs 0.00 0.00 - 0.01 K/cumm [facility] [place] Comment:Testing performed by : [address] [address] Blood 05/12/2024 4:45 AM SALES COMPENSATION ANALYST 05/12/2024 9:19 AM SALES COMPENSATION ANALYST us Notinfile Unknown LAB BLOOD ORDERABLES Final Res ult [facility] [address] [facility] [place] [address] * (ABNORMAL) Basic metabolic panel (05/12/2024 4:45 AM SALES COMPENSATION ANALYST) Sodium 138 135 - 145 mmol/L [facility] [place] Comment:Testing performed by : [address] [address] Potassium, pl 3.9 3.3 - 4.9 mmol/L [facility] [place] Comment:Testing performed by : [address] [address] Chloride 102 97 - 110 mmol/L [facility] [place] Comment:Testing performed by : [address] [address] CO2 26 22 - 32 mmol/L [facility] [place] Comment:Testing performed by : [address] [address] Anion gap 10 2 - 15 mmol/L [facility] [place] Comment:Testing performed by : [address] [address] BUN 17 6 - 25 mg/dL [facility] Comment:Testing performed by : [address] [address] Creatinine 0.60(L) 0.80 - 1.30 mg/dL [facility] [place] Comment:Testing performed by : [address] [address] Glucose 153 70 - 199 mg/dL [facility] [...] was last revised 2022. Testing performed by: [address] [address] Calcium 9.2 8.5 - 10.3 mg/dL [facility] Comment:Testing performed by : [address] [address] Blood 05/12/2024 4:45 AM SALES COMPENSATION ANALYST 05/12/2024 9:19 AM SALES COMPENSATION ANALYST us Notinfile Unknown LAB BLOOD ORDERABLES Final Res ult [facility] [address] [facility] [place] [address] * Influenza A/B, RSV, and COVID-19 PCR Nasopharyngeal (05/09/2024 11:20 AM SALES COMPENSATION ANALYST) Pathologist [facility] COVID-19 RNA Negative Negative [facility] [place] Comment:Testing performed by : [address] [address] Influenza A RNA Negative Negative [facility] Comment:Testing performed by : [address] [address] Influenza B RNA Negative Negative [facility] Comment:Testing performed by : [address] [address] RSV RNA Negative Negative [facility] Comment: Interpretive data: Testing performed by [facility]. This test is performed using the [employer] Xpert Xpress CoV-2/Flu/RSV plus assay. This is a multiplex, real-time reverse transcriptase PCR assay intended for the qualitative detection of nucleic acid from SARS-CoV-2, influenza A, influenza B, and respiratory syncytial virus. This assay has been cleared by the [place] Food and Drug administration. The performance characteristics have been verified by the [facility]. Results must be considered in the clinical context, and a negative result does not rule out infection. Interpretive Data last revised 2023 Testing performed by: [address] [address] Nasopharyngeal 05/09/2024 11 :20 AM SALES COMPENSATION ANALYST 05/09/2024 12:30 PM SALES COMPENSATION ANALYST us Notinfile Unknown LAB MICROBIOLOGY - GENERAL ORD ERABLES Final Result [facility] [place] [address] * (ABNORMAL) Differential, auto (05/06/2024 4:57 AM SALES COMPENSATION ANALYST) Neutrophil abs 6.6(H) 1.5 - 6.5 K/cumm [facility] Comment:Testing performed by : [address] [address] Imm gran abs 0.1 0.0 - 0.1 K/cumm [facility] Comment:Testing performed by : [address] [address] Lymphocyte abs 1.6 0.8 - 3.3 K/cumm [facility] Comment:Testing performed by : [address] [address] Monocyte abs 0.6 0.2 - 0.8 K/cumm [facility] Comment:Testing performed by : [address] [address] Eosinophil abs 0.1 0.0 - 0.5 K/cumm [facility] Comment:Testing performed by : [address] [address] Basophil abs 0.1 0.0 - 0.1 K/cumm [facility] Comment:Testing performed by : [address] [address] Neutrophil pct 72.1 % [facility] Comment: Interpretive Data Percent cell count reference ranges are not reported, since discordance with absolute values may lead to misinterpretation of CBC data. Current Interpretive Data was last revised on 2017. Testing performed by: [address] [address] Imm gran pct 1.0 % [facility] Comment: Interpretive Data Percent cell count reference ranges are not reported, since discordance with absolute values may lead to misinterpretation of CBC data. Current Interpretive Data was last revised on 2017. Testing performed by: [address] [address] Lymphocyte pct 17.9 % [facility] Comment: Interpretive Data Percent cell count reference ranges are not reported, since discordance with absolute values may lead to misinterpretation of CBC data. Current Interpretive Data was last revised on 2017. Testing performed by: [address] [address] Monocyte pct 7.0 % [facility] Comment: Interpretive Data Percent cell count reference ranges are not reported, since discordance with absolute values may lead to misinterpretation of CBC data. Current Interpretive Data was last revised on 2017. Testing performed by: [address] [address] Eosinophil pct 1.5 % [facility] Comment: Interpretive Data Percent cell count reference ranges are not reported, since discordance with absolute values may lead to misinterpretation of CBC data. Current Interpretive Data was last revised on 2017. Testing performed by: [address] [address] Basophil pct 0.5 % [facility] Comment: Interpretive Data Percent cell count reference ranges are not reported, since discordance with absolute values may lead to misinterpretation of CBC data. Current Interpretive Data was last revised on 2017. Testing performed by: [address] [address] Blood 05/06/2024 4:57 AM SALES COMPENSATION ANALYST 05/06/2024 8:25 AM SALES COMPENSATION ANALYST us Notinfile Unknown LAB BLOOD ORDERABLES Final Res ult [facility] [address] [facility] [place] [address] * (ABNORMAL) CBC with auto differential (05/06/2024 4:57 AM SALES COMPENSATION ANALYST) WBC 9.2 3.8 - 9.9 K/cumm [facility] [place] Comment:Testing performed by : [address] [address] Hgb 12.1(L) 13.0 - 17.5 g/dL [facility] [place] Comment:Testing performed by : [address] [address] Hct 35.4(L) 38.9 - 50.3 % [facility] [place] Comment:Testing performed by : [address] [address] Plt 279 150 - 400 K/cumm [facility] [place] Comment:Testing performed by : [address] [address] MPV 10.2 9.1 - 12.3 fL [facility] [place] Comment:Testing performed by : [address] [address] RBC 3.91(L) 4.30 - 5.80 M/cumm [facility] [place] Comment:Testing performed by : [address] [address] MCV 90.5 81.3 - 96.4 fL [facility] [place] Comment:Testing performed by : [address] [address] MCH 30.9 27.1 - 33.3 pg [facility] [place] Comment:Testing performed by : [address] [address] MCHC 34.2 32.3 - 35.7 g/dL [facility] [place] Comment:Testing performed by : [address] [address] RDW CV 13.3 11.1 - 14.9 % [facility] [place] Comment:Testing performed by : [address] [address] RDW SD 43.6 35.7 - 48.1 fL [facility] [place] Comment:Testing performed by : [address] [address] NRBC abs 0.00 0.00 - 0.01 K/cumm [facility] [place] Comment:Testing performed by : [address] [address] Blood 05/06/2024 4:57 AM SALES COMPENSATION ANALYST 05/06/2024 8:25 AM SALES COMPENSATION ANALYST us Notinfile Unknown LAB BLOOD ORDERABLES Final Res ult [facility] [place] [address] [facility] [place], [place] [id number] * eGFR (05/05/2024 5:05 AM SALES COMPENSATION ANALYST) eGFR >90 >=60 mL/min/1. 73 m2 [...] was last reviewed 2021. Testing performed by: [address] [address] Blood 05/05/2024 5:05 AM SALES COMPENSATION ANALYST 05/05/2024 8:24 AM SALES COMPENSATION ANALYST us Notinfile Unknown LAB BLOOD ORDERABLES Final Res ult [facility] [address] [facility] [place] [address] * (ABNORMAL) Differential, auto (05/05/2024 5:05 AM SALES COMPENSATION ANALYST) Neutrophil abs 8.1(H) 1.5 - 6.5 K/cumm [facility] Comment:Testing performed by : [address] [address] Imm gran abs 0.1 0.0 - 0.1 K/cumm [facility] Comment:Testing performed by : [address] [address] Lymphocyte abs 1.5 0.8 - 3.3 K/cumm [facility] Comment:Testing performed by : [address] [address] Monocyte abs 0.7 0.2 - 0.8 K/cumm [facility] Comment:Testing performed by : [address] [address] Eosinophil abs 0.1 0.0 - 0.5 K/cumm [facility] Comment:Testing performed by : [address] [address] Basophil abs 0.0 0.0 - 0.1 K/cumm [facility] Comment:Testing performed by : [address] [address] Neutrophil pct 76.9 % [facility] Comment: Interpretive Data Percent cell count reference ranges are not reported, since discordance with absolute values may lead to misinterpretation of CBC data. Current Interpretive Data was last revised on 2017. Testing performed by: [address] [address] Imm gran pct 1.0 % [facility] Comment: Interpretive Data Percent cell count reference ranges are not reported, since discordance with absolute values may lead to misinterpretation of CBC data. Current Interpretive Data was last revised on 2017. Testing performed by: [address] [address] Lymphocyte pct 13.9 % [facility] Comment: Interpretive Data Percent cell count reference ranges are not reported, since discordance with absolute values may lead to misinterpretation of CBC data. Current Interpretive Data was last revised on 2017. Testing performed by: [address] [address] Monocyte pct 6.6 % [facility] Comment: Interpretive Data Percent cell count reference ranges are not reported, since discordance with absolute values may lead to misinterpretation of CBC data. Current Interpretive Data was last revised on 2017. Testing performed by: [address] [address] Eosinophil pct 1.2 % [facility] Comment: Interpretive Data Percent cell count reference ranges are not reported, since discordance with absolute values may lead to misinterpretation of CBC data. Current Interpretive Data was last revised on 2017. Testing performed by: [address] [address] Basophil pct 0.4 % [facility] Comment: Interpretive Data Percent cell count reference ranges are not reported, since discordance with absolute values may lead to misinterpretation of CBC data. Current Interpretive Data was last revised on 2017. Testing performed by: [address] [address] Blood 05/05/2024 5:0 5 AM SALES COMPENSATION ANALYST 05/05/2024 8:24 AM SALES COMPENSATION ANALYST us Notinfile Unknown LAB BLOOD ORDERABLES Final Res ult [facility] [address] [facility] [place] [address] * (ABNORMAL) CBC with auto differential (05/05/2024 5:05 AM SALES COMPENSATION ANALYST) [facility] Signature WBC 10.6(H) 3.8 - 9.9 K/cumm [facility] Comment:Testing performed by : [address], [address] Hgb 12.1(L) 13.0 - 17.5 g/dL [facility] Comment:Testing performed by : [address], [address] Hct 35.2(L) 38.9 - 50.3 % [facility] Comment:Testing performed by : [address], [address] Plt 291 150 - 400 K/cumm [facility] Comment:Testing performed by : [address], [address] MPV 10.1 9.1 - 12.3 fL [facility] Comment:Testing performed by : [address], [address] RBC 3.87(L) 4.30 - 5.80 M/cumm [facility] Comment:Testing performed by : [address], [address] MCV 91.0 81.3 - 96.4 fL [facility] Comment:Testing performed by : [address], [address] MCH 31.3 27.1 - 33.3 pg [facility] Comment:Testing performed by : [address], [address] MCHC 34.4 32.3 - 35.7 g/dL [facility] Comment:Testing performed by : [address], [address] RDW CV 13.3 11.1 - 14.9 % [facility] Comment:Testing performed by : [address], [address] RDW SD 43.7 35.7 - 48.1 fL [facility] Comment:Testing performed by : [address], [address] NRBC abs 0.00 0.00 - 0.01 K/cumm [facility] Comment:Testing performed by : [address] [address] Blood 05/05/2024 5:05 AM SALES COMPENSATION ANALYST 05/05/2024 8:24 AM SALES COMPENSATION ANALYST us Notinfile Unknown LAB BLOOD ORDERABLES Final Res ult [facility] [address] [facility] [place] [address] * (ABNORMAL) Basic metabolic panel (05/05/2024 5:05 AM SALES COMPENSATION ANALYST) Sodium 138 135 - 145 mmol/L [facility] Comment:Testing performed by : [address] [address] Potassium, pl 4.1 3.3 - 4.9 mmol/L [facility] Comment:Testing performed by : [address] [address] Chloride 104 97 - 110 mmol/L [facility] Comment:Testing performed by : [address] [address] CO2 25 22 - 32 mmol/L [facility] Comment:Testing performed by : [address] [address] Anion gap 9 2 - 15 mmol/L [facility] Comment:Testing performed by : [address] [address] BUN 17 6 - 25 mg/dL [facility] Comment:Testing performed by : [address] [address] Creatinine 0.70(L) 0.80 - 1.30 mg/dL [facility] Comment:Testing performed by : [address] [address] Glucose 142 70 - 199 mg/dL [facility] [...] was last revised 2022. Testing performed by: [facility], [address] [place] [address]., [address] Calcium 9.2 8.5 - 10.3 mg/dL [facility] [place] Comment:Testing performed by : [facility], [address] [place] [address], [place]., [address] Blood 05/05/2024 5:05 AM SALES COMPENSATION ANALYST 05/05/2024 8:24 AM SALES COMPENSATION ANALYST us Notinfile Unknown LAB BLOOD ORDERABLES Final Res ult [facility] [place] [address] [facility] [place] [address] * CT Lung Cancer Screening (03/11/2024 1:07 PM SALES COMPENSATION ANALYST) Anatomical Region Laterality Modality Chest N/A Computed Tomogra phy 03/11/2024 1:46 PM SALES COMPENSATION ANALYST Impressions 03/11/2024 2:47 PM SALES COMPENSATION ANALYST 1. LungRADS Category 2 (benign). Recommend [...] John Conte M.D. Narrative 03/11/2024 2:47 PM SALES COMPENSATION ANALYST EXAMINATION: Lung cancer screening CT of [...] an active HCV infection. HCV RNA IU/mL 8710235(H ) <15 IU/mL [facility]ICAL [...] the management of these patients (J Hepatol, 4928-7550, ). COMMENT [facility] HISTORICAL RESULTS Comment: The analytical performance characteristics of this assay have been determined by [facility]. The modifications have not been cleared or approved by the FDA. This assay has been validated pursuant to the CLIA regulations and is used for clinical purposes. This test was performed using the KLAUS(R)AmpliPrep/ KLAUS(R)TaqMan(R)HCV Test,v2.0. For more information on this test, go to: http://education.RazorGator.Vinfolio/faq/TTR66r3 (This link is being provided for informational/ educational purposes only.) 09/25/2016 4:15 PM CDT 09/27/2016 12:45 PM CDT Narrative [facility] HISTORICAL RESULTS - 09/27/2016 12:34 PM CDT 0 PERFORMING LAB: [place], [facility] [id number] [address] [id number] Abhinav Cruz D.O., MPH us Historical Provider LAB MICROBIOLOGY - GENERA L ORDERABLES Final Result [facility] HISTORICAL RESULTS from Last 3 Months or Most Recently Relevant to Health Maintenance Insurance Advance Directives For more information, please contact: [phone] Documents on File Type Date Recorded Patient Acute Specialist Expl anation ADVANCE DIRECTIVE 03/24/2024 7:47 AM Susan r of Director Group Sales-Medical * Full Code (Latest Code Status on File) Date Activated Date Inactivated Comments 04/22/2024 5:16 AM 04/25/2024 5:38 PM * Full Code Date Activated Date Inactivated Comments 04/08/2024 9:42 PM 04/11/2024 6:32 PM * Full Code Date Activated Date Inactivated Comments 02/21/2024 12:46 AM 02/26/2024 6:04 PM Care Teams Bomb Squad Officer Relationship Specialty Start Date End Date Chani Beltran MD PhD [address] [place] [address] PCP - General 03/25/24 Heidi Fay MD [address] [place] [address] Consulting Physician Neurosurgery 04/10/24
--- OUTSIDE RECORDS SUMMARY | 2024-08-03 23:01 | XMS_ITS | Referral Summary ---
Author Organization [facility] Address [address] [place] [address] Care Team Providers Care Orchestra Director Name Role Phone Chani Beltran MD PhD Primary Care Provi halle Heidi Fay MD Unavailable Encounters Date Type Department Care Team Description 07/21/2024 Orders Only [facility] [address] [place] [address] Medical Office Building [address] [place] [phone] Heidi Fay MD Osteoarthritis of cervical spine, unspecified spinal osteoarthritis complication status (Primary Dx); History of spinal cord injury 07/17/2024 2:15 PM CDT - 07/17/2024 11:59 PM CDT Hospital Encounter [id number] [address] [place] [address] [address] [place] [phone] Osteoarthritis of cervical spine, unspecified spinal osteoarthritis complication status Discharge Disposition: Discharge to home or self care 07/17/2024 2:45 PM CDT Office Visit [facility] [address] [place] [address] Office Building [address] [place] [phone] Heidi Fay MD Osteoarthritis of cervical spine, unspecified spinal osteoarthritis complication status 07/10/2024 Orders Only [facility] [address] [place] [address] Office Building [address] [place] [phone] Heidi Fay MD Osteoarthritis of cervical spine, unspecified spinal osteoarthritis complication status (Primary Dx) 07/09/2024 Telephone [facility] [address] [place] [address] Cece Boyce RN 07/09/2024 Orders Only [facility] Office [facility] [address] [place] [address] Heidi Fay MD Osteoarthritis of cervical spine, unspecified spinal osteoarthritis complication status (Primary Dx) 06/05/2024 2:30 PM RAIL SWITCHMAN Office Visit [facility] [address] [place] [address] 1st [place] [address] Primary open angle glaucoma (POAG) of both eyes, severe stage (Primary Dx) 06/02/2024 Orders Only [facility] [address] [place] [address] 4 [address] [place] [phone] Heidi Fay MD Osteoarthritis of cervical spine, unspecified spinal osteoarthritis complication status (Primary Dx) 06/02/2024 2:27 PM RAIL SWITCHMAN - 06/02/2024 11:59 PM RAIL SWITCHMAN Hospital Encounter [facility] [address] [place] [phone] Osteoarthritis of cervical spine, unspecified spinal osteoarthritis complication status Discharge Disposition: Discharge to home or self care 06/02/2024 2:45 PM RAIL SWITCHMAN Office Visit [facility] [address] [place] [address] 4 [address] [place] [phone] Heidi Fay MD Osteoarthritis of cervical spine, unspecified spinal osteoarthritis complication status 05/30/2024 Orders Only [facility] [address] [place] [address] 4 [address] [place] [phone] Heidi Fay MD Osteoarthritis of cervical spine, unspecified spinal osteoarthritis complication status (Primary Dx) 05/27/2024 Orders Only [facility] [address] [place] [address] Outpatient Health [address] [place] [address] Janette Mas MD Foot callus (Primary Dx) 05/14/2024 Orders Only [facility] [phone] Unknown, Notinfile 05/12/2024 Orders Only [facility] [phone] Unknown, Notinfile 05/09/2024 Orders Only [facility] [phone] Unknown, Notinfile 05/06/2024 Orders Only [facility] [phone] Unknown, Notinfile 05/05/2024 Orders Only [facility] [phone] Unknown, Notinfile from Last 3 Months Allergies [...] 04/10/2024 Assessment & Plan (04/10/2024 2:29 PM RAIL SWITCHMAN): Does not wish to return to current ECF. CC working with sister to find new ECF. Have decided to return to previous ECF- everyone was really nice just overworked Central cord syndrome, subsequent encounter 07/2023 Assessment & Plan (04/11/2024 9:53 AM RAIL SWITCHMAN): P/w worsening falls, numbness in all extremities [...] 04/08/2024 Assessment & Plan (04/10/2024 10:01 AM RAIL SWITCHMAN): His sister reports that he has had [...] 03/04/2024 Assessment & Plan (06/05/2024 3:40 PM RAIL SWITCHMAN): Tmax 20/23, +FHx (sister, father), angles open [...] 02/04/2024 Assessment & Plan (04/08/2024 10:11 PM RAIL SWITCHMAN): Reports quitting tobacco. - congratulated patient on [...] ophthalmology. 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 threatened to shut off services in your [...] often do you attend chur ch or restorationism services? Never 04/24/2024 Do you belong to any clubs o r organizations such as christianity groups, unions, fraternal or athletic groups, or [...] any time in the past 12 [facility], were you homeless or living in a skilled nursing (including now)? No 04/24/2024 Personal Safety Answer Date Recorded Have you ever been in or are you currently in a harmful physical or emotional relationship or is someone making you feel afraid or unsafe? Denies 04/21/2024 Sex and Gender Information Value Date Recorded Sex Assigned at Not on file Legal Sex Male 9:06 PM RAIL SWITCHMAN Gender Identity Not on file Sexual Orientation Not on file Last Filed Vital Signs Vital Sign Reading Time Taken Comments Blood Pressure 106/60 04/25/2024 11:26 AM RAIL SWITCHMAN Pulse 95 04/25/2024 11:26 AM RAIL SWITCHMAN Temperature 37.7 C (99.9 F) 04/25/2024 11:26 AM RAIL SWITCHMAN Respiratory Rate 17 04/25/2024 11:26 AM RAIL SWITCHMAN Oxygen Saturation 99% 04/25/2024 11:26 AM RAIL SWITCHMAN Inhaled Oxygen Concentration - - Weight 83 kg (183 lb) 07/17/2024 3:13 PM CDT Height 177.8 cm (5' 10 ) 07/17/2024 3:13 PM CDT Body Mass Index 26.26 07/17/2024 3:13 PM CDT Plan of Treatment Scheduled Procedures Name Priority Associated Diagnoses Date/Ti me COLONOSCOPY Open Access Healthcare maintenance Medical Devices Implanted Type Area Gas Systems Worker Device Identifier Shelf Expiration Date Model / Serial / Lot [employer] Centerpiece 10mm Multiple Hole Open Door Precut Kickstand Color 853-010 - [id number] Implanted:Qty: 3 on 04/21/2024 by Heidi Fay MD at [facility] N/A: Spine Cervical [employer] 853-010 / / [employer] Spinal Screw Anterior Cervical Odlp Solid 2.0x5mm [id number] - [id number] Implanted:Qty: 5 on 04/21/2024 by Heidi Fay MD at [facility] N/A: Spine Cervical [employer] [id number] / / [employer] Spinal Screw Anterior Cervical Odlp Solid 2.0x7mm [id number] - [id number] Implanted:Qty: 7 on 04/21/2024 by Heidi Fay MD at [facility] N/A: Spine Cervical [employer] [id number] / / Procedures Procedure Name Priority Date/Time Associated Diagnosis Comments XR SPINE CERVICAL 2 OR 3 VIEWS Schedule Routine, Read Routine (OP Routine) 07/17/2024 3:14 PM CDT Osteoarthritis of cervical spine, unspecified spinal osteoarthritis complication status LORENZO VISUAL FIELD - OU - BOTH EYES Routine 06/05/2024 3:39 PM RAIL SWITCHMAN Primary open angle glaucoma (POAG) of both eyes, severe stage XR SPINE CERVICAL 2 OR 3 VIEWS Schedule Routine, Read Routine (OP Routine) 06/02/2024 2:39 PM RAIL SWITCHMAN Osteoarthritis of cervical spine, unspecified spinal osteoarthritis complication status EGFR Routine 05/14/2024 4:57 AM RAIL SWITCHMAN BASIC METABOLIC PANEL Routine 05/14/2024 4:57 AM RAIL SWITCHMAN DIFFERENTIAL AUTO Routine 05/14/2024 4:5 7 AM RAIL SWITCHMAN CBC WITH AUTO DIFFERENTIAL Routine 05/14/2024 4:57 AM RAIL SWITCHMAN EGFR Routine 05/12/2024 4:45 AM RAIL SWITCHMAN BASIC METABOLIC PANEL Routine 05/12/2024 4:45 AM RAIL SWITCHMAN DIFFERENTIAL AUTO Routine 05/12/2024 4:4 5 AM RAIL SWITCHMAN CBC WITH AUTO DIFFERENTIAL Routine 05/12/2024 4:45 AM RAIL SWITCHMAN INFLUENZA A/B, RSV, AND COVID-19 PCR STAT 05/09/2024 11:20 AM RAIL SWITCHMAN DIFFERENTIAL AUTO Routine 05/06/2024 4:5 7 AM RAIL SWITCHMAN CBC WITH AUTO DIFFERENTIAL Routine 05/06/2024 4:57 AM RAIL SWITCHMAN EGFR Routine 05/05/2024 5:05 AM RAIL SWITCHMAN BASIC METABOLIC PANEL Routine 05/05/2024 5:05 AM RAIL SWITCHMAN DIFFERENTIAL AUTO Routine 05/05/2024 5:0 5 AM RAIL SWITCHMAN CBC WITH AUTO DIFFERENTIAL Routine 05/05/2024 5:[address] LUNG CANCER SCREENING Schedule Routine, Read Routine (OP Routine) 03/11/2024 1:07 PM RAIL SWITCHMAN Personal history of nicotine dependence HEPATITIS PANEL, [...] OU - Both Eyes (06/05/2024 3:39 PM RAIL SWITCHMAN) Pattern Deviation OD 7.57 dB CONTINUUM Mean Deviation OD -9.74 dB CONTINUUM Anatomical Region Laterality Modality Head Visual Field Narrative 06/05/2024 3:39 PM RAIL SWITCHMAN Right Eye Fixation was borderline. Cooperation was good. Reliability was good. Foveal threshold was normal. Mean Deviation was -9.74 dB. Pattern Deviation was 7.57 dB. Notes OD: superior and inferior nasal arcuates OS: dense superior altitudinal defect, inferior arcuate us Linda Nguyen MD OPHTH VISUAL FIELD Final Result * XR Spine Cervical 2 or 3 Views (06/02/2024 2:39 PM RAIL SWITCHMAN) Anatomical Region Laterality Modality Spine N/A Computed Radiogr aphy 06/02/2024 2:46 PM RAIL SWITCHMAN Impressions 06/02/2024 2:46 PM RAIL SWITCHMAN 1. Drain removal following C3 laminectomy and C4-C6 laminoplasties. Electronically signed by: Ghassan Benitez M.D. Narrative 06/02/2024 2:46 PM RAIL SWITCHMAN EXAMINATION: XR SPINE CERVICAL 2 OR 3 [...] Resul t * eGFR (05/14/2024 4:57 AM RAIL SWITCHMAN) eGFR >90 >=60 mL/min/1. 73 m2 [facility] [place] Comment: Interpretive Data Reference Interval Normal >/= [...] was last reviewed 2021. Testing performed by: [facility], [address] [place] [address]., [address] Blood 05/14/2024 4:57 AM RAIL SWITCHMAN 05/14/2024 8:52 AM RAIL SWITCHMAN us Notinfile Unknown LAB BLOOD ORDERABLES Final Res ult [facility] [place] [address] [facility] [place] [address] * Differential, auto (05/14/2024 4:57 AM RAIL SWITCHMAN) Neutrophil abs 6.2 1.5 - 6.5 K/cumm [facility] [place] Comment:Testing performed by : [facility], [address] [place] [address], [place]., [address] Imm gran abs 0.0 0.0 - 0.1 K/cumm [facility] Comment:Testing performed by : [facility], [address] [place] [address], [place]., [address] Lymphocyte abs 1.4 0.8 - 3.3 K/cumm [facility] Comment:Testing performed by : [address], [place]., [address] Monocyte abs 0.8 0.2 - 0.8 K/cumm [facility] Comment:Testing performed by : [address], [place]., [address] Eosinophil abs 0.1 0.0 - 0.5 K/cumm [facility] Comment:Testing performed by : [address] [address] Basophil abs 0.1 0.0 - 0.1 K/cumm [facility] Comment:Testing performed by : [address] [address] Neutrophil pct 71.4 % [facility] Comment: Interpretive Data Percent cell count reference ranges are not reported, since discordance with absolute values may lead to misinterpretation of CBC data. Current Interpretive Data was last revised on 2017. Testing performed by: [address] [address] Imm gran pct 0.5 % [facility] Comment: Interpretive Data Percent cell count reference ranges are not reported, since discordance with absolute values may lead to misinterpretation of CBC data. Current Interpretive Data was last revised on 2017. Testing performed by: [address] [address] Lymphocyte pct 16.4 % [facility] Comment: Interpretive Data Percent cell count reference ranges are not reported, since discordance with absolute values may lead to misinterpretation of CBC data. Current Interpretive Data was last revised on 2017. Testing performed by: [address] [address] Monocyte pct 9.5 % [facility] Comment: Interpretive Data Percent cell count reference ranges are not reported, since discordance with absolute values may lead to misinterpretation of CBC data. Current Interpretive Data was last revised on 2017. Testing performed by: [address] [address] Eosinophil pct 1.5 % [facility] Comment: Interpretive Data Percent cell count reference ranges are not reported, since discordance with absolute values may lead to misinterpretation of CBC data. Current Interpretive Data was last revised on 2017. Testing performed by: [address] [address] Basophil pct 0.7 % [facility] Comment: Interpretive Data Percent cell count reference ranges are not reported, since discordance with absolute values may lead to misinterpretation of CBC data. Current Interpretive Data was last revised on 2017. Testing performed by: [address] [address] Blood 05/14/2024 4:57 AM RAIL SWITCHMAN 05/14/2024 8:52 AM RAIL SWITCHMAN us Notinfile Unknown LAB BLOOD ORDERABLES Final Res ult [facility] [address] [facility] Department of Laboratories [place], [place] [id number] * (ABNORMAL) CBC with auto differential (05/14/2024 4:57 AM RAIL SWITCHMAN) WBC 8.7 3.8 - 9.9 K/cumm [facility] Comment:Testing performed by : [address] [address] Hgb 12.6(L) 13.0 - 17.5 g/dL [facility] [place] Comment:Testing performed by : [address] [address] Hct 37.1(L) 38.9 - 50.3 % [facility] [place] Comment:Testing performed by : [address] [address] Plt 221 150 - 400 K/cumm [facility] Comment:Testing performed by : [address] [address] MPV 10.8 9.1 - 12.3 fL [facility] [place] Comment:Testing performed by : [address] [address] RBC 4.09(L) 4.30 - 5.80 M/cumm [facility] [place] Comment:Testing performed by : [address] [address] MCV 90.7 81.3 - 96.4 fL [facility] [place] Comment:Testing performed by : [address] [address] MCH 30.8 27.1 - 33.3 pg [facility] [place] Comment:Testing performed by : [address] [address] MCHC 34.0 32.3 - 35.7 g/dL [facility] Comment:Testing performed by : [address] [address] RDW CV 13.3 11.1 - 14.9 % [facility] Comment:Testing performed by : [address] [address] RDW SD 44.0 35.7 - 48.1 fL [facility] Comment:Testing performed by : [address] [address] NRBC abs 0.00 0.00 - 0.01 K/cumm [facility] [place] Comment:Testing performed by : [address] [address] Blood 05/14/2024 4:57 AM RAIL SWITCHMAN 05/14/2024 8:52 AM RAIL SWITCHMAN us Notinfile Unknown LAB BLOOD ORDERABLES Final Res ult [facility] [place] [address] [facility] [place] [address] * (ABNORMAL) Basic metabolic panel (05/14/2024 4:57 AM RAIL SWITCHMAN) Sodium 140 135 - 145 mmol/L [facility] [place] Comment:Testing performed by : [address] [address] Potassium, pl 4.3 3.3 - 4.9 mmol/L [facility] Comment:Testing performed by : [address] [address] Chloride 104 97 - 110 mmol/L [facility] Comment:Testing performed by : [address] [address] CO2 25 22 - 32 mmol/L [facility] Comment:Testing performed by : [address] [address] Anion gap 11 2 - 15 mmol/L [facility] Comment:Testing performed by : [address], [place]., [address] BUN 16 6 - 25 mg/dL [facility] Comment:Testing performed by : [address] [address] Creatinine 0.60(L) 0.80 - 1.30 mg/dL [facility] Comment:Testing performed by : [address] [address] Glucose 125 70 - 199 mg/dL [facility] Comment: Interpretive Data Fasting glucose >/= [...] was last revised 2022. Testing performed by: [address] [address] Calcium 9.2 8.5 - 10.3 mg/dL [facility] Comment:Testing performed by : [address] [address] Blood 05/14/2024 4:57 AM RAIL SWITCHMAN 05/14/2024 8:52 AM RAIL SWITCHMAN us Notinfile Unknown LAB BLOOD ORDERABLES Final Res ult [facility] [address] [facility] [place] [address] * eGFR (05/12/2024 4:45 AM RAIL SWITCHMAN) eGFR >90 >=60 mL/min/1. 73 m2 [facility] [...] was last reviewed 2021. Testing performed by: [address] [address] Blood 05/12/2024 4:45 AM RAIL SWITCHMAN 05/12/2024 9:19 AM RAIL SWITCHMAN us Notinfile Unknown LAB BLOOD ORDERABLES Final Res ult Performing Organization Address [facility] de Phone Number [facility] [address] [facility] [place] [address] * (ABNORMAL) Differential, auto (05/12/2024 4:45 AM RAIL SWITCHMAN) Neutrophil abs 7.5(H) 1.5 - 6.5 K/cumm [facility] Comment:Testing performed by : [address] [address] Imm gran abs 0.0 0.0 - 0.1 K/cumm [facility] Comment:Testing performed by : [address] [address] Lymphocyte abs 1.3 0.8 - 3.3 K/cumm [facility] Comment:Testing performed by : [address] [address] Monocyte abs 1.0(H) 0.2 - 0.8 K/cumm [facility] Comment:Testing performed by : [address] [address] Eosinophil abs 0.1 0.0 - 0.5 K/cumm [facility] Comment:Testing performed by : [address], [place]., [address] Basophil abs 0.1 0.0 - 0.1 K/cumm [facility] Comment:Testing performed by : [address] [address] Neutrophil pct 75.5 % [facility] Comment: Interpretive Data Percent cell count reference ranges are not reported, since discordance with absolute values may lead to misinterpretation of CBC data. Current Interpretive Data was last revised on 2017. Testing performed by: [address] [address] Imm gran pct 0.4 % [facility] Comment: Interpretive Data Percent cell count reference ranges are not reported, since discordance with absolute values may lead to misinterpretation of CBC data. Current Interpretive Data was last revised on 2017. Testing performed by: [address] [address] Lymphocyte pct 12.7 % [facility] Comment: Interpretive Data Percent cell count reference ranges are not reported, since discordance with absolute values may lead to misinterpretation of CBC data. Current Interpretive Data was last revised on 2017. Testing performed by: [address] [address] Monocyte pct 9.8 % [facility] Comment: Interpretive Data Percent cell count reference ranges are not reported, since discordance with absolute values may lead to misinterpretation of CBC data. Current Interpretive Data was last revised on 2017. Testing performed by: [address] [address] Eosinophil pct 1.1 % [facility] Comment: Interpretive Data Percent cell count reference ranges are not reported, since discordance with absolute values may lead to misinterpretation of CBC data. Current Interpretive Data was last revised on 2017. Testing performed by: [address] [address] Basophil pct 0.5 % [facility] Comment: Interpretive Data Percent cell count reference ranges are not reported, since discordance with absolute values may lead to misinterpretation of CBC data. Current Interpretive Data was last revised on 2017. Testing performed by: [address] [address] Blood 05/12/2024 4:45 AM RAIL SWITCHMAN 05/12/2024 9:19 AM RAIL SWITCHMAN us Notinfile Unknown LAB BLOOD ORDERABLES Final Res ult [facility] [address] [facility] [place] [address] * (ABNORMAL) CBC with auto differential (05/12/2024 4:45 AM RAIL SWITCHMAN) WBC 10.0(H) 3.8 - 9.9 K/cumm [facility] [place] Comment:Testing performed by : [address] [address] Hgb 12.7(L) 13.0 - 17.5 g/dL [facility] [place] Comment:Testing performed by : [address] [address] Hct 37.3(L) 38.9 - 50.3 % [facility] [place] Comment:Testing performed by : [address] [address] Plt 217 150 - 400 K/cumm [facility] [place] Comment:Testing performed by : [address] [address] MPV 11.0 9.1 - 12.3 fL [facility] [place] Comment:Testing performed by : [address] [address] RBC 4.10(L) 4.30 - 5.80 M/cumm [facility] [place] Comment:Testing performed by : [address] [address] MCV 91.0 81.3 - 96.4 fL [facility] [place] Comment:Testing performed by : [address] [address] MCH 31.0 27.1 - 33.3 pg [facility] [place] Comment:Testing performed by : [address] [address] MCHC 34.0 32.3 - 35.7 g/dL [facility] [place] Comment:Testing performed by : [address] [address] RDW CV 13.7 11.1 - 14.9 % [facility] [place] Comment:Testing performed by : [address] [address] RDW SD 45.6 35.7 - 48.1 fL [facility] [place] Comment:Testing performed by : [address] [address] NRBC abs 0.00 0.00 - 0.01 K/cumm [facility] [place] Comment:Testing performed by : [address] [address] Blood 05/12/2024 4:45 AM RAIL SWITCHMAN 05/12/2024 9:19 AM RAIL SWITCHMAN us Notinfile Unknown LAB BLOOD ORDERABLES Final Res ult [facility] [place] [address] [facility] Department of Laboratories [place], [place] [id number] * (ABNORMAL) Basic metabolic panel (05/12/2024 4:45 AM RAIL SWITCHMAN) Sodium 138 135 - 145 mmol/L [facility] [place] Comment:Testing performed by : [address] [address] Potassium, pl 3.9 3.3 - 4.9 mmol/L [facility] [place] Comment:Testing performed by : [address] [address] Chloride 102 97 - 110 mmol/L [facility] Comment:Testing performed by : [address] [address] CO2 26 22 - 32 mmol/L [facility] Comment:Testing performed by : [address] [address] Anion gap 10 2 - 15 mmol/L [facility] Comment:Testing performed by : [address] [address] BUN 17 6 - 25 mg/dL [facility] Comment:Testing performed by : [address] [address] Creatinine 0.60(L) 0.80 - 1.30 mg/dL [facility] Comment:Testing performed by : [address] [address] Glucose 153 70 - 199 mg/dL [facility] [...] was last revised 2022. Testing performed by: [address] [address] Calcium 9.2 8.5 - 10.3 mg/dL [facility] Comment:Testing performed by : [address] [address] Blood 05/12/2024 4:45 AM RAIL SWITCHMAN 05/12/2024 9:19 AM RAIL SWITCHMAN us Notinfile Unknown LAB BLOOD ORDERABLES Final Res ult [facility] [address] [facility] [place] [address] * Influenza A/B, RSV, and COVID-19 PCR Nasopharyngeal (05/09/2024 11:20 AM RAIL SWITCHMAN) [facility] COVID-19 RNA Negative Negative [facility] Comment:Testing performed by : [address] [address] Influenza A RNA Negative Negative [facility] Comment:Testing performed by : [address] [address] Influenza B RNA Negative Negative [facility] Comment:Testing performed by : [address] [address] RSV RNA Negative Negative [facility] Comment: Interpretive data: Testing performed by [facility]. This test is performed using the m[employer] Xpert Xpress CoV-2/Flu/RSV plus assay. This is a multiplex, real-time reverse transcriptase PCR assay intended for the qualitative detection of nucleic acid from SARS-CoV-2, influenza A, influenza B, and respiratory syncytial virus. This assay has been cleared by the [place] Food and Drug administration. The performance characteristics have been verified by the [facility]. Results must be considered in the clinical context, and a negative result does not rule out infection. Interpretive Data last revised 2023 Testing performed by: [address] [address] Nasopharyngeal 05/09/2024 11 :20 AM RAIL SWITCHMAN 05/09/2024 12:30 PM RAIL SWITCHMAN us Notinfile Unknown LAB MICROBIOLOGY - GENERAL ORD ERABLES Final Result [facility] [address] [facility] [place] [address] * (ABNORMAL) Differential, auto (05/06/2024 4:57 AM RAIL SWITCHMAN) [facility] [facility] Neutrophil abs 6.6(H) 1.5 - 6.5 K/cumm [facility] Comment:Testing performed by : [address] [address] Imm gran abs 0.1 0.0 - 0.1 K/cumm [facility] Comment:Testing performed by : [address] [place]., [address] Lymphocyte abs 1.6 0.8 - 3.3 K/cumm CERNER Comment:Testing performed by : [address] [address] Monocyte abs 0.6 0.2 - 0.8 K/cumm CERNER Comment:Testing performed by : [address] [address] Eosinophil abs 0.1 0.0 - 0.5 K/cumm [facility] Comment:Testing performed by : [address] [address] Basophil abs 0.1 0.0 - 0.1 K/cumm [facility] Comment:Testing performed by : [address] [address] Neutrophil pct 72.1 % [facility] Comment: Interpretive Data Percent cell count reference ranges are not reported, since discordance with absolute values may lead to misinterpretation of CBC data. Current Interpretive Data was last revised on 2017. Testing performed by: [address] [address] Imm gran pct 1.0 % C[facility]ER Comment: Interpretive Data Percent cell count reference ranges are not reported, since discordance with absolute values may lead to misinterpretation of CBC data. Current Interpretive Data was last revised on 2017. Testing performed by: [address] [address] Lymphocyte pct 17.9 % [facility]ER Comment: Interpretive Data Percent cell count reference ranges are not reported, since discordance with absolute values may lead to misinterpretation of CBC data. Current Interpretive Data was last revised on 2017. Testing performed by: [address] [address] Monocyte pct 7.0 % [facility]ER Comment: Interpretive Data Percent cell count reference ranges are not reported, since discordance with absolute values may lead to misinterpretation of CBC data. Current Interpretive Data was last revised on 2017. Testing performed by: [address] [address] Eosinophil pct 1.5 % [facility]ER Comment: Interpretive Data Percent cell count reference ranges are not reported, since discordance with absolute values may lead to misinterpretation of CBC data. Current Interpretive Data was last revised on 2017. Testing performed by: [address] [address] Basophil pct 0.5 % [facility] [place] Comment: Interpretive Data Percent cell count reference ranges are not reported, since discordance with absolute values may lead to misinterpretation of CBC data. Current Interpretive Data was last revised on 2017. Testing performed by: [address] [address] Blood 05/06/2024 4:57 AM RAIL SWITCHMAN 05/06/2024 8:25 AM RAIL SWITCHMAN us Notinfile Unknown LAB BLOOD ORDERABLES Final Res ult [facility] [address] [facility] [place] [address] * (ABNORMAL) CBC with auto differential (05/06/2024 4:57 AM RAIL SWITCHMAN) WBC 9.2 3.8 - 9.9 K/cumm [facility] [place] Comment:Testing performed by : [address] [address] Hgb 12.1(L) 13.0 - 17.5 g/dL [facility] [place] Comment:Testing performed by : [address] [address] Hct 35.4(L) 38.9 - 50.3 % [facility] [place] Comment:Testing performed by : [address] [address] Plt 279 150 - 400 K/cumm [facility] [place] Comment:Testing performed by : [address] [address] MPV 10.2 9.1 - 12.3 fL [facility] [place] Comment:Testing performed by : [address] [address] RBC 3.91(L) 4.30 - 5.80 M/cumm [facility] [place] Comment:Testing performed by : [facility], [address] [place] [address]., [address] MCV 90.5 81.3 - 96.4 fL [facility] [place] Comment:Testing performed by : [address] [address] MCH 30.9 27.1 - 33.3 pg [facility] [place] Comment:Testing performed by : [address] [address] MCHC 34.2 32.3 - 35.7 g/dL [facility] [place] Comment:Testing performed by : [address] [address] RDW CV 13.3 11.1 - 14.9 % [facility] [place] Comment:Testing performed by : [address] [address] RDW SD 43.6 35.7 - 48.1 fL [facility] Comment:Testing performed by : [address] [address] NRBC abs 0.00 0.00 - 0.01 K/cumm [facility] Comment:Testing performed by : [address] [address] Blood 05/06/2024 4:57 AM RAIL SWITCHMAN 05/06/2024 8:25 AM RAIL SWITCHMAN us Notinfile Unknown LAB BLOOD ORDERABLES Final Res ult [facility] [place] [address] [facility] Department of Laboratories [place], [place] [id number] * eGFR (05/05/2024 5:05 AM RAIL SWITCHMAN) eGFR >90 >=60 mL/min/1. 73 m2 [facility] [...] was last reviewed 2021. Testing performed by: [address] [address] Blood 05/05/2024 5:05 AM RAIL SWITCHMAN 05/05/2024 8:24 AM RAIL SWITCHMAN us Notinfile Unknown LAB BLOOD ORDERABLES Final Res ult [facility] [address] [facility] [place] [address] * (ABNORMAL) Differential, auto (05/05/2024 5:05 AM RAIL SWITCHMAN) Neutrophil abs 8.1(H) 1.5 - 6.5 K/cumm [facility] Comment:Testing performed by : [address] [address] Imm gran abs 0.1 0.0 - 0.1 K/cumm [facility] Comment:Testing performed by : [address] [address] Lymphocyte abs 1.5 0.8 - 3.3 K/cumm [facility] Comment:Testing performed by : [address] [address] Monocyte abs 0.7 0.2 - 0.8 K/cumm [facility] Comment:Testing performed by : [address] [address] Eosinophil abs 0.1 0.0 - 0.5 K/cumm [facility] Comment:Testing performed by : [address] [address] Basophil abs 0.0 0.0 - 0.1 K/cumm [facility] Comment:Testing performed by : [address] [address] Neutrophil pct 76.9 % [facility] Comment: Interpretive Data Percent cell count reference ranges are not reported, since discordance with absolute values may lead to misinterpretation of CBC data. Current Interpretive Data was last revised on 2017. Testing performed by: [address] [address] Imm gran pct 1.0 % [facility] Comment: Interpretive Data Percent cell count reference ranges are not reported, since discordance with absolute values may lead to misinterpretation of CBC data. Current Interpretive Data was last revised on 2017. Testing performed by: [address] [address] Lymphocyte pct 13.9 % [facility] Comment: Interpretive Data Percent cell count reference ranges are not reported, since discordance with absolute values may lead to misinterpretation of CBC data. Current Interpretive Data was last revised on 2017. Testing performed by: [address] [address] Monocyte pct 6.6 % [facility] Comment: Interpretive Data Percent cell count reference ranges are not reported, since discordance with absolute values may lead to misinterpretation of CBC data. Current Interpretive Data was last revised on 2017. Testing performed by: [address] [address] Eosinophil pct 1.2 % [facility] Comment: Interpretive Data Percent cell count reference ranges are not reported, since discordance with absolute values may lead to misinterpretation of CBC data. Current Interpretive Data was last revised on 2017. Testing performed by: [address] [address] Basophil pct 0.4 % [facility] Comment: Interpretive Data Percent cell count reference ranges are not reported, since discordance with absolute values may lead to misinterpretation of CBC data. Current Interpretive Data was last revised on 2017. Testing performed by: [address] [address] Blood 05/05/2024 5:05 AM RAIL SWITCHMAN 05/05/2024 8:24 AM RAIL SWITCHMAN us Notinfile Unknown LAB BLOOD ORDERABLES Final Res ult [facility] [place] [address] [facility] [place] [address] * (ABNORMAL) CBC with auto differential (05/05/2024 5:05 AM RAIL SWITCHMAN) WBC 10.6(H) 3.8 - 9.9 K/cumm [facility] [place] Comment:Testing performed by : [address] [address] Hgb 12.1(L) 13.0 - 17.5 g/dL [facility] [place] Comment:Testing performed by : [address] [address] Hct 35.2(L) 38.9 - 50.3 % [facility] [place] Comment:Testing performed by : [address] [address] Plt 291 150 - 400 K/cumm [facility] [place] Comment:Testing performed by : [address], [address] MPV 10.1 9.1 - 12.3 fL [facility] [place] Comment:Testing performed by : [address] [address] RBC 3.87(L) 4.30 - 5.80 M/cumm [facility] [place] Comment:Testing performed by : [address] [address] MCV 91.0 81.3 - 96.4 fL [facility] [place] Comment:Testing performed by : [address] [address] MCH 31.3 27.1 - 33.3 pg [facility] [place] Comment:Testing performed by : [address] [address] MCHC 34.4 32.3 - 35.7 g/dL [facility] [place] Comment:Testing performed by : [address] [address] RDW CV 13.3 11.1 - 14.9 % [facility] [place] Comment:Testing performed by : [address] [address] RDW SD 43.7 35.7 - 48.1 fL [facility] [place] Comment:Testing performed by : [address] [address] NRBC abs 0.00 0.00 - 0.01 K/cumm [facility] [place] Comment:Testing performed by : [address] [address] Blood 05/05/2024 5:05 AM RAIL SWITCHMAN 05/05/2024 8:24 AM RAIL SWITCHMAN us Notinfile Unknown LAB BLOOD ORDERABLES Final Res ult [facility] [place] [facility] [place] [address] * (ABNORMAL) Basic metabolic panel (05/05/2024 5:05 AM RAIL SWITCHMAN) Sodium 138 135 - 145 mmol/L [facility] [place] Comment:Testing performed by : [address] [address] Potassium, pl 4.1 3.3 - 4.9 mmol/L [facility] [place] Comment:Testing performed by : [address] [address] Chloride 104 97 - 110 mmol/L [facility] [place] Comment:Testing performed by : [address] [address] CO2 25 22 - 32 mmol/L [facility] [place] Comment:Testing performed by : [address] [address] Anion gap 9 2 - 15 mmol/L [facility] [place] Comment:Testing performed by : [address] [address] BUN 17 6 - 25 mg/dL [facility] [place] Comment:Testing performed by : [address] [address] Creatinine 0.70(L) 0.80 - 1.30 mg/dL [facility] [place] Comment:Testing performed by : [address] [address] Glucose 142 70 - 199 mg/dL [facility] [...] was last revised 2022. Testing performed by: [address] [address] Calcium 9.2 8.5 - 10.3 mg/dL [facility] [place] Comment:Testing performed by : [address] [address] Blood 05/05/2024 5:05 AM RAIL SWITCHMAN 05/05/2024 8:24 AM RAIL SWITCHMAN us Notinfile Unknown LAB BLOOD ORDERABLES Final Res ult [facility] [place] [address] [facility] [place] [address] * CT Lung Cancer Screening (03/11/2024 1:07 PM RAIL SWITCHMAN) Anatomical Region Laterality Modality Chest N/A Computed Tomogra phy 03/11/2024 1:46 PM RAIL SWITCHMAN Impressions 03/11/2024 2:47 PM RAIL SWITCHMAN 1. LungRADS Category 2 (benign). Recommend Low [...] John Conte M.D. Narrative 03/11/2024 2:47 PM RAIL SWITCHMAN EXAMINATION: Lung cancer screening CT of the [...] an active HCV infection. HCV RNA IU/mL 3921518(H ) <15 IU/mL [facility] [...] the management of these patients (J Hepatol, [id number], ). COMMENT [facility] HISTORICAL RESULTS Comment: The analytical performance characteristics of this assay have been determined by [employer]. The modifications have not been cleared or approved by the FDA. This assay has been validated pursuant to the CLIA regulations and is used for clinical purposes. This test was performed using the [employer]LA[employer](R)AmpliPrep/ KLAUS(R)TaqMan(R)HCV Test,v2.0. For more information on this test, go to: http://education.[employer]/faq/GSK27j7 (This link is being provided for informational/ educational purposes only.) 09/25/2016 4:15 PM CDT 09/27/2016 12:45 PM CDT Narrative [facility] HISTORICAL RESULTS - 09/27/2016 12:34 PM CDT 0 PERFORMING LAB: [facility] [address] [id number] Abhinav Cruz D.O., MPH Historical Provider LAB MICROBIOLOGY - GENERA L ORDERABLES Final Result [facility] HISTORICAL RESULTS from Last 3 Months or Most Recently Relevant to Health Maintenance Insurance Advance Directives For more information, please contact: [phone] Documents on File Type Date Recorded Patient Bobbin Disker Expl anation ADVANCE DIRECTIVE 03/24/2024 7:47 AM Susan r of Manager Service Desk-Medical * Full Code (Latest Code Status on File) Date Activated Date Inactivated Comments 04/22/2024 5:16 AM 04/25/2024 5:38 PM * Full Code Date Activated Date Inactivated Comments 04/08/2024 9:42 PM 04/11/2024 6:32 PM * Full Code Date Activated Date Inactivated Comments 02/21/2024 12:46 AM 02/26/2024 6:04 PM Care Teams Orchestra Director Relationship Specialty Start Date End Date Chani Beltran MD PhD [address] [facility] [place] [address] PCP - General 03/25/24 Heidi Fay MD [address] [place] [address] Consulting Physician Neurosurgery 04/10/24
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
[2024-08-04 01:55] LABS: Add Urine Microscopic? YES; Appearance Urine Turbid (Clear); Bacteria Urine 4+ /hpf; Bilirubin Urine Negative (Negative); Blood Urine 1+ (Negative); Color Urine Yellow (Yellow); Glucose Urine UA Negative (Negative); Ketones Urine Trace mg/dL (Negative); Leukocyte Esterase Ur 2+ LEU/UL (Negative); Nitrate Urine Positive (Negative); Non Pathogenic Casts 0-2; Protein Urine 1+ mg/dL (Negative); RBC Urine 0-2 /hpf (0-2); Specific Grav Ur 1.015 (1.001-1.035); Squamous Epithelial Cell Urine None Seen /hpf (Few); Urobilinogen Urine 0.2 mg/dL (<2.0); WBC Urine >100 /hpf (0-3); pH Urine 5.5 (5.0-9.0)
[2024-08-04 06:00] VITALS: BP 146/88; PULSE 95; RESP 20; TEMP 37.2; O2SAT 98
[2024-08-04 08:00] VITALS: PULSE 95; RESP 20; O2SAT 98
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
[2024-08-04 08:09] LABS: Basophils Percent Auto 0.3 % (0.2-1.2); Eosinophils Percent Auto 0.3 % (0-4.4); Hemoglobin 12.4 g/dL (14.0-18.0); Immature Granulocyte Absolute 0.03 K/mm3 (0.00-0.031); Immature Granulocyte Percent A 0.5 % (0-0.5); Lymphocytes Absolute Auto 0.72 K/mm3 (0.9-3.2); Lymphocytes Percent Auto 11.7 % (18.3-44.2); Mean Corpuscular HGB Conc 33.5 g/dl (32-36); Mean Corpuscular Hemoglobin 29.3 pg (26-34); Mean Corpuscular Volume 87.5 fl (80-100); Mean Platelet Volume 10.3 fl (7.4-10.4); Monocytes Absolute Auto 0.7 K/mm3 (0.1-0.6); Monocytes Percent Auto 11.5 % (2.6-8.5); Neutrophils Absolute Auto 4.7 K/mm3 (1.3-6.7); Neutrophils Percent Auto 75.7 % (45.5-73.1); Platelet Count Result 154 k/mm3 (150-375); Red Blood Count 4.23 M/mm3 (4.6-6.20); Red Cell Distribution Width 14.4 % (11.5-14.5); White Blood Count 6.2 K/mm3 (4.5-10.0)
[2024-08-04] MEDS: methocarbamoL 500 MG TABLET PO ×2 (08:50→17:44)
[2024-08-04 08:56] LABS: Alanine Aminotransferase 19 U/L (6-50); Alkaline Phosphatase 60 U/L (38-126); Anion Gap 9 mmol/L (4-12); Aspartate Amino Transferase 24 U/L (17-59); Bilirubin,Total 2.1 mg/dL (0.2-1.3); Blood Urea Nitrogen 14 mg/dL (9-20); Calcium 8.7 mg/dL (8.4-10.2); Carbon Dioxide 24 mmol/L (22-30); Chloride 102 mmol/L (98-107); Estimated CRCL calculation 80 ml/min; Estimated Glomerular Filt Rate > 60; Glucose 176 mg/dL (65-110); Potassium 3.9 mmol/L (3.4-5.0); Sodium 135 mmol/L (137-145)
[2024-08-04] MEDS: ENOXAPARIN 40 MG/0.4 ML SYRINGE SUB-Q (09:14)
[2024-08-04] MEDS: DORZOLAMIDE/TIMOLOL OPHTH SOL 10 ML BOTTLE 1 DROP EACH EYE ×2 (09:15→21:50)
[2024-08-04 14:00] VITALS: BP 111/81; PULSE 96; RESP 18; TEMP 36.2; O2SAT 99
[2024-08-04] MEDS: ACETAMINOPHEN 325 MG TABLET 650 MG PO (17:43)
[2024-08-04] MEDS: LATANOPROST 0.005% OP SOLN 2.5 ML BTL 1 DROP EACH EYE (17:46)
[2024-08-04 21:42] VITALS: BP 139/81; PULSE 80; RESP 20; TEMP 36.6; O2SAT 98
[2024-08-05 05:54] VITALS: BP 110/68; PULSE 73; RESP 18; TEMP 36.7; O2SAT 99
[2024-08-05 06:00] LABS: Basophils Percent Auto 0.5 % (0.2-1.2); Eosinophils Absolute Auto 0.1 K/mm3 (0-0.3); Eosinophils Percent Auto 0.9 % (0-4.4); Hematocrit 36.9 % (42.0-52.0); Hemoglobin 12.1 g/dL (14.0-18.0); Immature Granulocyte Absolute 0.02 K/mm3 (0.00-0.031); Immature Granulocyte Percent A 0.3 % (0-0.5); Lymphocytes Percent Auto 13.8 % (18.3-44.2); Mean Corpuscular HGB Conc 32.8 g/dl (32-36); Mean Corpuscular Hemoglobin 28.8 pg (26-34); Mean Corpuscular Volume 87.9 fl (80-100); Mean Platelet Volume 10.5 fl (7.4-10.4); Monocytes Percent Auto 14.7 % (2.6-8.5); Neutrophils Absolute Auto 4.5 K/mm3 (1.3-6.7); Neutrophils Percent Auto 69.8 % (45.5-73.1); Platelet Count Result 164 k/mm3 (150-375); Red Cell Distribution Width 14.2 % (11.5-14.5); White Blood Count 6.5 K/mm3 (4.5-10.0)
[2024-08-05 06:16] LABS: Alanine Aminotransferase 19 U/L (6-50); Albumin Level 3.9 g/dL (3.5-5.1); Alkaline Phosphatase 56 U/L (38-126); Anion Gap 8 mmol/L (4-12); Aspartate Amino Transferase 25 U/L (17-59); Bilirubin,Total 1.8 mg/dL (0.2-1.3); Blood Urea Nitrogen 14 mg/dL (9-20); Calcium 8.9 mg/dL (8.4-10.2); Carbon Dioxide 29 mmol/L (22-30); Chloride 102 mmol/L (98-107); Estimated CRCL calculation 77 ml/min; Estimated Glomerular Filt Rate > 60; Glucose 142 mg/dL (65-110); Potassium 4.2 mmol/L (3.4-5.0); Sodium 139 mmol/L (137-145)
[2024-08-05] MEDS: ENOXAPARIN 40 MG/0.4 ML SYRINGE SUB-Q (08:37)
[2024-08-05] MEDS: DORZOLAMIDE/TIMOLOL OPHTH SOL 10 ML BOTTLE 1 DROP EACH EYE (08:38)
[2024-08-05] MEDS: ACETAMINOPHEN 325 MG TABLET 650 MG PO ×2 (08:51→14:33)
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
[2024-08-05 14:00] VITALS: BP 140/85; PULSE 81; RESP 18; TEMP 36.2; O2SAT 98
== END 2024-08-05 16:13 ==
LOC: ANHED 20:56 → ANH3MEDSUR 22:59
PROVIDERS: Admitting Provider Internal Medicine; Emergency Provider Student in an Organized Health Care Education/Training Program; Visit Provider Physician Assistant
DX: N39.0 Urinary tract infection, site not specified (principal); T74.01XA Adult neglect or abandonment, confirmed, initial encounter; R32 Unspecified urinary incontinence; S49.91XA Unspecified injury of right shoulder and upper arm, initial encounter; W01.10XA Fall on same level from slipping, tripping and stumbling with subsequent striking against unspecified object, initial encounter; R26.81 Unsteadiness on feet; I25.10 Atherosclerotic heart disease of native coronary artery without angina pectoris; G62.9 Polyneuropathy, unspecified; H40.9 Unspecified glaucoma; Z87.891 Personal history of nicotine dependence; Z98.890 Other specified postprocedural states; Z79.899 Other long term (current) drug therapy
CPT/HCPCS: 36415; 70450; 71046; 72125; 73030; 80053; 81001; 85025; 87086; 87186; 96361; 96365; 96372; 96374; 97161; 97166; 97530; 97535; 99212; 99285; A9270; G0378; G0463; J0696; J1650; J7120